=== PATIENT | female | born 1950 | race Hispanic/Latino ===

== ENCOUNTER → 2018-03-20 | Outpatient (CLI) | payer MEDICARE | END | disposition home or self-care (01) | LOC: RAH 07:54 | PROVIDERS: ATTEND Family Medicine | DX: Z12.31 Encounter for screening mammogram for malignant neoplasm of breast (principal) | CPT/HCPCS: 77067 ==

== ENCOUNTER → 2020-04-12 | Outpatient (CLI) | payer MEDICARE | END | disposition home or self-care (01) | LOC: RAH 14:24 | PROVIDERS: ATTEND Family Medicine | DX: Z12.31 Encounter for screening mammogram for malignant neoplasm of breast (principal) ==

== ENCOUNTER → 2021-06-03 | Outpatient (CLI) | payer MEDICARE | END | disposition home or self-care (01) | LOC: RAH 13:23 | PROVIDERS: ATTEND Family Medicine | DX: Z12.31 Encounter for screening mammogram for malignant neoplasm of breast (principal) | CPT/HCPCS: 77067 ==

== ENCOUNTER 2022-02-24 17:23 | Emergency (ER) | payer OTHER ==
[~2022-02-24] VITALS: Ht 154.9 cm; Wt 54.4 kg
[2022-02-24 17:24] VITALS: BP 146/50
== END 2022-02-24 18:55 | disposition home or self-care (01) ==
LOC: EDH 17:23
DX: I83.892 Varicose veins of left lower extremity with other complications (principal); I10 Essential (primary) hypertension; Z88.0 Allergy status to penicillin; Z88.2 Allergy status to sulfonamides

== ENCOUNTER → 2022-06-07 | Outpatient (CLI) | payer OTHER | END | disposition home or self-care (01) | LOC: SHCH 08:06 | PROVIDERS: ATTEND Internal Medicine Cardiovascular Disease | DX: I87.2 Venous insufficiency (chronic) (peripheral) (principal) | CPT/HCPCS: 93970 ==

== ENCOUNTER 2025-10-05 01:07 | Inpatient (IN) | payer OTHER ==
[~2025-10-05] VITALS: Ht 152.4 cm; Wt 36.0 kg
--- NOTE | 2025-10-05 01:21 | EKG ---
[facility] Test Date: 2025-10-05 Test Time: 01:12:47 Pat Name: BRANNON LINDA Department: ED Room: 402 Gender: F Trace Evidence Technician: [id number] : 1950 Requested By: GABRIEL JARRETT Order Number: [id number] Reading MD: Torito Singh Measurements Intervals Justice Rate: 60 P: 90 SC: 152 QRS: 81 QRSD: 85 T: 79 QT: 456 QTc: 456 Interpretive Statements Sinus rhythm Compared to ECG 03/15/2025 11:24:13 Indeterminate axis no longer present Myocardial infarct finding no longer present Electronically Signed On 10-05-2025 12:13:55 SHOT POLISHER by Torito Singh Please click the below link to view image of tracing.
--- NOTE | 2025-10-05 01:22 | ERN ---
ED Note History of Present Illness Stated Complaint: CHEST PAIN Chief Complaint: Chest Pain Time Seen by MD: 01:11 Dictation: This is a 75-year-old female who has a advanced dementia and is bed-bound at baseline brought by who is the primary caregiver to the hospital for evaluation of possible chest pain. Patient is basically mumbling disoriented trying to get out of bed and pull things off and I am unable to confirm the chest pain with her. Does indicate that she has been more confused and pretty much in bed. He stated that she does not tell him when she has to use the restroom. He appeared overwhelmed as a caregiver Temperature 96.6 pulse 60 respirations 16 blood pressure 135/83 with a pulse oximetry of 100% on room air Hypertension advanced dementia Allergies: Coded Allergies: Penicillins (Verified Allergy, 11/20/13) Sulfa (Sulfonamide Antibiotics) (Verified Allergy, 11/20/13) Home Meds No Active Prescriptions or Reported Meds Past Medical History Past Medical History: Dementia, Hypertension Surgical History: Unknown Family History: CAD Social History: Negative History: Not Applicable RN Note Reviewed/Agreed w/PFSH: Yes Review of System Dictation Review of systems is unobtainable as patient is extremely confused and disoriented. Collateral information from -he thinks she may have epigastric or chest pain. For the past 2 years patient has been deteriorating and is bed-bound with total care Initial Vital Sign VS Vital Signs Date Time Temp Pulse Resp B/P (MAP) Pulse Ox O2 Delivery O2 Flow Rate FiO2 10/05/25 01:08 96.6 60 16 135/83 100 Room Air 10/05/25 01:43 0 21 Physical Exam Dictation General: awake, alert, NAD looks much older than her stated age, severe temporal wasting, cachexia emaciated mumbling Head/Face: Normocephalic, atraumatic Eyes: PERRL, EOMI, vision at baseline ENT: oral cavity clear, TMs clear, no signs of infection mucous membranes are dry poor dentition Neck: Trachea midline, supple, no nuchal rigidity Cardiovascular: RRR, normal S1/S2, No MRGs, no JVD Respiratory: CTAB, no respiratory distress, No rales or wheezes Abdomen: Soft, non-tender, non-distended, normal bowel sounds, no guarding or rebound. Skin: Warm, dry, poor skin l turgor, no rash MS/Extremity: Pulses equal, no cyanosis, neurovascular intact, FROM Neuro: confused disoriented unable to get any appropriate responses from the patient Psych: Normal behavior, mood, and affect normal Extremities-no edema without any palpable cords, Homans sign is negative Results (Laboratory/Radiology) Laboratory/Radiology Laboratory Tests Test 10/05/25 01:39 White Blood Count 13.6 K/uL (4.8-10.8) H Red Blood Count 4.04 MIL/uL (4.00-5.50) Hemoglobin 12.4 g/dL (12.0-16.0) Hematocrit 38.2 % (36-48) Mean Corpuscular Volume 94.6 fL (79-99) Mean Corpuscular Hemoglobin 30.7 pg (27.0-33.0) Mean Corpuscular Hemoglobin Concent 32.5 g/dL (32.0-36.0) Red Cell Distribution Width 13.5 % (11.0-15.5) Platelet Count 363 K/uL (130-400) Mean Platelet Volume 8.9 fL (7.5-10.5) Immature Granulocyte % (Auto) 0.4 % (0-1) Neutrophils (%) (Auto) 81.7 % (40.0-77.0) H Lymphocytes (%) (Auto) 11.2 % (21.0-51.0) L Monocytes (%) (Auto) 5.3 % (3.0-13.0) Eosinophils (%) (Auto) 1.0 % (0.0-8.0) Basophils (%) (Auto) 0.4 % (0.0-5.0) Neutrophils # (Auto) 11.1 K/uL (1.8-7.7) H Lymphocytes # (Auto) 1.5 K/uL (1.0-4.8) Monocytes # (Auto) 0.7 K/uL (0.1-1.0) Eosinophils # (Auto) 0.13 K/uL (0.00-0.70) Basophils # (Auto) 0.06 K/uL (0.00-0.20) Absolute Immature Granulocyte (auto 0.05 K/uL (0-1) Nucleated Red Blood Cells 0.0 % (0.0-0.19) Sodium Level 137 mmol/L (136-145) Potassium Level 3.1 mmol/L (3.5-5.1) L Chloride Level 100 mmol/L (101-111) L Carbon Dioxide Level 27 mmol/L (21-32) Blood Urea Nitrogen 12 mg/dL (7-18) Creatinine 1.0 mg/dL (0.5-1.0) Glomerular Filtration Rate Calc 58 mL/min (>90) Random Glucose 159 mg/dL (70-105) H Total Calcium 8.7 mg/dL (8.5-10.1) Total Creatine Kinase 59 U/L (21-232) Troponin I High Sensitivity 8 ng/L (4-50) Labs Reviewed?: Yes EKG Comment: Twelve lead EKG done on 10/05/2025 at 1:12 a.m. shows a heart rate of 60, MA interval 152, QRS 85, QT/QTC 456/456 Impression normal sinus rhythm with nonspecific ST-T changes EKG rhythm strip also shows a normal sinus rhythm with a monitoring baseline due to patient's lack of cooperation. Interpreted by ER MD Dr. Jarrett X-RAY Comment: REASON: CHEST PAIN ORDERING PHYSICIAN: GABRIEL JARRETT MD PROCEDURE: CXR1VW - CHEST 1VW EXAM: CR Chest, 1 View. CLINICAL HISTORY: CHEST PAIN COMPARISON: None provided. FINDINGS: LUNGS: There is no mass, infiltrate, or acute pulmonary abnormality. PLEURAL SPACES: No evidence of pleural effusion or pneumothorax. MEDIASTINUM: Cardiac size and mediastinal contours are within normal limits. Calcified plaque in the aortic arch. BONES: No aggressive appearing osseous lesion seen. IMPRESSION: No acute cardiopulmonary pathology is evident. /[place] DICTATED BY: MARIA ANTONIA SARGENT Jr., MD DATE: 10/05/25329 ELECTRONICALLY SIGNED BY: MARIA ANTONIA SARGENT Jr., MD DATE: 10/05/25329 ED Course ED Course Orders Procedure Category Date Status Time Vital Signs Per CPOE 10/05/25 Transmitted Routine 01:08 Chest 1vw RAD 10/05/25 Resulted 01:08 12 Lead Ekg Tracing- EKG 10/05/25 Complete Technical 01:08 Oxygen By Nc/Pulse Ox CPOE 10/05/25 Transmitted 01:08 Maintain Iv CPOE 10/05/25 Transmitted 01:08 Iv Insertion CPOE 10/05/25 Transmitted 01:08 Cardiac Monitoring CPOE 10/05/25 Transmitted 01:08 Pulse Oximetry With CPOE 10/05/25 Transmitted Vs And Prn 01:08 Cbc With Differential LAB 10/05/25 Complete 01:08 Activity: Br W/Brp CPOE 10/05/25 Transmitted With Assist 01:08 Creatine Kinase, Total LAB 10/05/25 Complete 01:08 Troponin I High LAB 10/05/25 Complete Sensitivity 01:08 Basic Metabolic Panel LAB 10/05/25 Complete 01:08 Urinalysis Profile LAB 10/05/25 Logged 02:07 Haloperidol Inj PHA 10/05/25 Complete (Haldol Inj) 03:00 Ns-20 Meq Kcl 1000ml PHA 10/05/25 Complete (Ns-20 Meq Kcl 1000 03:00 Lorazepam 2 Mg PHA 10/05/25 Complete (Ativan) 03:00 Ns-20 Meq Kcl 1000ml PHA 10/05/25 In Process (Ns-20 Meq Kcl 1000 04:00 Ceftriaxone 1g Vial PHA 10/05/25 Complete (Rocephine 1g Inj) 05:00 Edm Admit Bridge Order ADM 10/05/25 Transmitted 04:55 Current Medications Medications (Trade) Dose Ordered Sig/Juliane Route PRN Reason Start Time Stop Time Status Last Admin Dose Admin Ceftriaxone Sodium (ROCEphine 1G INJ) 1 gm ONCE ONCE IVPB 10/05/25 05:00 10/05/25 05:01 DC 10/05/25 04:58 Haloperidol Lactate (Haldol Inj) 2 mg ONCE ONCE IM 10/05/25 03:00 10/05/25 03:08 DC 10/05/25 03:33 Lorazepam (AtiVAN) 1 mg ONCE ONCE IVP 10/05/25 03:00 10/05/25 03:08 DC 10/05/25 03:33 Potassium Chloride/Sodium Chloride 1,000 ml @ 100 mls/hr Q10H IV 10/05/25 03:00 10/05/25 03:35 DC Potassium Chloride/Sodium Chloride 1,000 ml @ 500 mls/hr Q2H ONCE IV 10/05/25 04:00 10/05/25 05:59 10/05/25 05:01 Vital Signs Date Time Temp Pulse Resp B/P (MAP) Pulse Ox O2 Delivery O2 Flow Rate FiO2 10/05/25 04:55 98.4 60 20 133/62 99 Room Air* 0 21 10/05/25 03:30 98.4 62 18 128/74 98 Room Air* 0 21 10/05/25 01:43 98.4 56 18 150/54 98 Room Air* 0 21 10/05/25 01:08 96.6 60 16 135/83 100 Room Air Medical Decision Making MDM Differential diagnosis: Worsening delirium could be secondary to dehydration, UTI, electrolyte abnormalities and adult failure to thrive This is a 75-year-old female who has a advanced dementia and is bed-bound at baseline brought by who is the primary caregiver to the hospital for evaluation of possible chest pain. Patient is basically mumbling disoriented tr sunny to get out of bed and pull things off and I am unable to confirm the chest pain with her. Does indicate that she has been more confused and pretty much in bed. He stated that she does not tell him when she has to use the restroom. He appeared overwhelmed as a caregiver Temperature 96.6 pulse 60 respirations 16 blood pressure 135/83 with a pulse oximetry of 100% on room air Hypertension advanced dementia Labs reviewed potassium is 3.1 WBC count is 13.6. Straight cath did not yield much urine Aggressive hydration with potassium supplementation. I assume that her worsening delirium is multifactorial probably related to a U TI, dehydration as well as poor p.o. intake. Her sleep-wake cycle also needs to be established. I recommended admission to the hospital and also to address goals of care and aggressiveness. Patient's is agreeable 4:30 a.m. patient [facility]-level provider for hospitalist group for admission and further management Rationale: Tests considered and ordered secondary to shared decision making include: labs, ECG and radiology Previous outside records reviewed: Old ER visits. Risk of complication and/or morbidity or mortality of patient management: None Medications-Per medication reconciliation Need for hospitalization: Patient does meet criteria for hospitalization. Need for emergency major/minor surgery: No There are no social concerns with this patient. Prescription drug management Prescriptions will include symptomatic care Patient's prior external medical records from other ER visits were reviewed by me as indicated. Prior testing and results from previous visits were reviewed. Prior tests were taken into account with medical decision making and resource utilization, independent historian/historians were used to obtain complete medical history. I independently interpreted the test that were performed, results were reviewed by me and considered findings on radiology if ordered. Medical management and examination interpretation discussions were had by me with other qualified healthcare professionals as indicated for the patient's care. Problem List Problem List: (1) Delirium due to multiple etiologies, acute, hyperactive (2) UTI (urinary tract infection) (3) Hypokalemia (4) Advanced dementia (5) Sacral decubitus ulcer, stage II (6) Adult failure to thrive DX & DISP Disposition: Inpatient Decision to Admit Time: 04:42 Departure Impression: Primary Impression: Delirium due to multiple etiologies, acute, hyperactive Additional Impressions: UTI (urinary tract infection), Sacral decubitus ulcer, stage II, Advanced dementia, Hypokalemia, Adult failure to thrive Condition: Stable Scripts No Active Prescriptions or Reported Meds Additional Instructions: Patient was informed of all the diagnostic labs and procedures conducted in the emergency room today and demonstrated understanding of the results. I personally reviewed and interpreted all the diagnostic exams performed in the ER today. The patient will be admitted to the hospital for further treatment and evaluation. Disposition-admit to facility Condition-stable/guarded Course-uncertain at this time Pain status-decreased Assessment-exam unchanged Admission Certification- I certify that the patients status is appropriate and is based on my best clinical judgment and the patient's condition as documented in the medical records Referrals: AUGIE GONSALES MD (PCP) GABRIEL JARRETT MD Oct 05, 2025 01:22
[2025-10-05 01:46] LABS: IMMATURE GRANULOCYTE ABSOLUTE 0.05 K/uL (0-1); NUCLEATED RED BLOOD CELLS 0.0 % (0.0-0.19); PLATELET COUNT (AUTO) 363 K/uL (130-400); RED BLOOD CELL COUNT(AUTO) 4.04 MIL/uL (4.00-5.50); RED CELL DISTRIBUTION WIDTH 13.5 % (11.0-15.5); WHITE BLOOD COUNT (AUTO) 13.6 K/uL (4.8-10.8)
[2025-10-05 01:58] LABS: CREATININE 1.0 mg/dL (0.5-1.0); GLOMERULAR FILTR. RATE CALC 58.0 mL/min (>90); GLUCOSE,RANDOM 159.0 mg/dL (70-105); SODIUM SERUM 137.0 mmol/L (136-145); UREA NITROGEN, BLOOD 12.0 mg/dL (7-18)
[2025-10-05 02:00] LABS: CREATINE KINASE, TOTAL 59.0 U/L (21-232)
--- NOTE | 2025-10-05 02:31 | HMCIMG ---
EXAM: CR Chest, 1 View. CLINICAL HISTORY: CHEST PAIN COMPARISON: None provided. FINDINGS: LUNGS: There is no mass, infiltrate, or acute pulmonary abnormality. PLEURAL SPACES: No evidence of pleural effusion or pneumothorax. MEDIASTINUM: Cardiac size and mediastinal contours are within normal limits. Calcified plaque in the aortic arch. BONES: No aggressive appearing osseous lesion seen. IMPRESSION: No acute cardiopulmonary pathology is evident. /[place]
[2025-10-05] MEDS ORDERED: NS-20 MEQ KCL 1000ML 1,000 ML IV SCH (03:00)
[2025-10-05] MEDS: HALOPERIDOL INJ 5 MG/ML VIAL IM ONE (03:33)
[2025-10-05] MEDS: NS-20 MEQ KCL 1000ML 1,000 ML IV ONE (05:01)
[2025-10-05] MEDS ORDERED: MAGNESIUM 2GM PREMIX 50ML 50 ML IV PRN (05:30)
[2025-10-05] MEDS: LACTATED RINGERS 1000ML 1,000 ML IV SCH (05:30)
[2025-10-05 05:41] LABS: APPEARANCE,URINE CLOUDY (CLEAR); GLUCOSE, URINE (UA) 30 mg/dL (NEGATIVE); LEUKOCYTE ESTERASE ,URINE 500 Leu/uL (NEGATIVE); NITRATE,URINE 1+ (NEGATIVE); OCCULT BLOOD,URINE SMALL (NEGATIVE)
[2025-10-05 05:43] LABS: ADD UA MICROSCOPIC YES
[2025-10-05 05:58] VITALS: BP 131/69; PULSE 62; RESP 22; TEMP 96.9
[2025-10-05 06:06] LABS: SQUAMOUS EPITHELIAL CELL,UR 0-2 /HPF (0-2)
[2025-10-05 08:00] VITALS: BP 124/67; PULSE 63; RESP 18; TEMP 98.1
[2025-10-05 08:30] VITALS: O2SAT 96
--- NOTE | 2025-10-05 09:32 | NUR ---
DCP:HOME vs SNF Pt currently lives at home with her and son. Pt has a wheelchair at home. As per , he has to help the pt complete all ADLs. PCP is Dr. Ariel Espinosa and uses [facility] for any RX needs. At [place] states that he would be open to a SNF, if not home.
--- NOTE | 2025-10-05 10:00 | NUR ---
No H&P or medical information in EMR. PT team to follow.
--- NOTE | 2025-10-05 11:01 | HP ---
[facility] PH[facility] Date of Service: Oct 05, 2025 Time of Service: 10:46 PCP: Dr. Santos from [facility] [place] Admitting: Dr Baez, Allergies: Penicillins, sulfa HISTORY OF PRESENT ILLNESS: [ Patient is 75 years old female with a past medical history of dementia, hypertension, hyperlipidemia, Coronary Artery Disease, who came to emergency department with a complaint of stomach pain and vomiting. Due to advanced dementia family members/ at the bedside was able to give detailed information. stated that since yesterday in the evening patient has been having stomach pain and was vomiting x2. Since she never complains of pain he decided to call 911 and bring her to the hospital for further evaluation/recommendations. Most recent vital signs temperature 98.1 pulse 63 respiration 18 blood pressure 124/67 patient is on room air satting 96%. WBc 13.6 hemoglobin 12.4 hematocrit 38.2 platelets 363] Urinalysis positive for leukocytosis patient was placed on Rocephin. Sodium 137 potassium 3.1 CO2 27 BUN 12 creatinine one GFR 58 glucose 159 C chest x-ray negative. Patient will be admitted under hospitalist care for further evaluation/recommendation. A.m. labs. REVIEW OF SYSTEMS CONSTITUTIONAL: Denies fevers, chills, or night sweats. No unintentional weight loss reported. NEUROLOGICAL: Denies headache, amaurosis fugax, motor weakness, sensory deficit, vertigo/spinning sensation, gait abnormalities, or tremors. ENT: No hearing loss, otalgia, otorrhea, rhinitis, rhinorrhea, hoarseness, or sore throat. CARDIOVASCULAR: Denies any exertional angina, dyspnea on exertion, orthopnea, paroxysmal nocturnal dyspnea, palpitations, life-threatening arrhythmias, claudication. PULMONARY: Denies any shortness of breath, cough, phlegm/sputum, hemoptysis, pleuritic chest pain. SLEEP: Denies morning headaches, daytime somnolence or napping. Denies difficulty falling asleep, staying asleep, waking from sleep. Denies knowledge of snoring. GASTROINTESTINAL: Denies any type of dysphagia to either liquids or solids. Denies , vomiting, pyrosis, early satiety, diarrhea, constipation, or changes in stool consistency or caliber. Denies coffee-ground emesis, hematemesis, hematochezia, or melanotic stools. Abdominal pain with the nausea but no vomiting GENITOURINARY: Denies frequency, urgency, nocturia, hematuria or incontinence (Storage/Irritative symptoms.) Low urinary stream, straining to void, urinary intermittency or hesitancy, splitting of the voiding stream, terminal dribbling. ENDOCRINOLOGIC: Denies polyuria, polydipsia, polyphagia or heat/cold intolerances. HEMATOLOGIC: Denies thrombophilia/previous clots, or coagulopathy/bleeding disorders. ONCOLOGIC: Denies personal history of malignancy. DERMATOLOGIC: Denies rashes or pruritus. PSYCHIATRIC: Denies any suicidal or homicidal ideation. Denies hallucinations. PAST MEDICAL HISTORY: [ Showed, hypertension, hyperlipidemia, Coronary Artery Disease] PAST SURGICAL HISTORY: [ None] PAST SOCIAL HISTORY: Denies any past social history] FAMILY HISTORY: [Patient lives at home with . Patient has advanced dementia bed-bound ] Coded Allergies: Penicillins (Verified Allergy, 11/20/13) Sulfa (Sulfonamide Antibiotics) (Verified Allergy, 11/20/13) PHYSICAL EXAM GENERAL APPEARANCE: The patient is disoriented x3 NEUROLOGICAL: Cranial nerves II-XII grossly intact. Motor is 5/5 in bilateral upper and lower extremities proximal to distal. No sensory deficits. HEENT: Face is symmetric. Pupils are equal and reactive. Extraocular movements are intact. NECK: Supple. No JVD. No thyromegaly. No submental, submandibular, pre- /postauricular, occipital or supraclavicular lymphadenopathy. CHEST: Normal chest expansion. No Telemetry. LUNGS: Absence of any rales, rhonchi or any wheezing. CARDIOVASCULAR: Regular. S1 and S2 normal. No appreciable rubs, murmurs or gallops. ABDOMEN: Soft, nontender, and nondistended. There is no rebound, voluntary guarding, or rigidity. : Deferred. No Bernal. EXTREMITIES: Non-edematous and not cyanotic. No clubbing. Good capillary refill. SKIN: Stage II sacral ulcer Vital Sign (Last 24 Hours) 10/05/25 10/05/25 06:15 08:00 Temp 98.1 Pulse 63 Resp 18 B/P (MAP) 124/67 Pulse Ox 96 O2 Delivery Room Air O2 Flow Rate 0 FiO2 21 LABS: Laboratory: Test 10/05/25 05:18 10/05/25 01:39 Range/Units Urine Color LIGHT-YELLOW YELLOW Urine Appearance CLOUDY H CLEAR Urine pH 8.0 5.0-8.0 Urine Specific [place] 1.011 1.001-1.031 Urine Protein NEGATIVE NEGATIVE mg/dL Urine Glucose (UA) 30 H NEGATIVE mg/dL Urine Ketones NEGATIVE NEGATIVE mg/dL Urine Occult Blood SMALL H NEGATIVE Urine Nitrate 1+ H NEGATIVE Urine Bilirubin NEGATIVE NEGATIVE mg/dL Urine Urobilinogen 0.2 0.2-1.0 mg/dL Urine Leukocyte Esterase 500 H NEGATIVE Megan/uL Urine RBC 0-1 0-1 /HPF Urine WBC 6-10 H 0-1 /HPF Urine Squamous Epithelial Cells 0-2 0-2 /HPF Urine Amorphous Crystals (Auto) Moderate H None Seen /LPF Urine Bacteria Many H None Seen /HPF White Blood Count 13.6 H 4.8-10.8 K/uL Red Blood Count 4.04 4.00-5.50 MIL/uL Hemoglobin 12.4 12.0-16.0 g/dL Hematocrit 38.2 36-48 % Mean Corpuscular Volume 94.6 79-99 fL Mean Corpuscular Hemoglobin 30.7 27.0-33.0 pg Mean Corpuscular Hemoglobin Concent 32.5 32.0-36.0 g/dL Red Cell Distribution Width 13.5 11.0-15.5 % Platelet Count 363 130-400 K/uL Mean Platelet Volume 8.9 7.5-10.5 fL Immature Granulocyte % (Auto) 0.4 0-1 % Neutrophils (%) (Auto) 81.7 H 40.0-77.0 % Lymphocytes (%) (Auto) 11.2 L 21.0-51.0 % Monocytes (%) (Auto) 5.3 3.0-13.0 % Eosinophils (%) (Auto) 1.0 0.0-8.0 % Basophils (%) (Auto) 0.4 0.0-5.0 % Neutrophils # (Auto) 11.1 H 1.8-7.7 K/uL Lymphocytes # (Auto) 1.5 1.0-4.8 K/uL Monocytes # (Auto) 0.7 0.1-1.0 K/uL Eosinophils # (Auto) 0.13 0.00-0.70 K/uL Basophils # (Auto) 0.06 0.00-0.20 K/uL Absolute Immature Granulocyte (auto 0.05 0-1 K/uL Nucleated Red Blood Cells 0.0 0.0-0.19 % Sodium Level 137 136-145 mmol/L Potassium Level 3.1 L 3.5-5.1 mmol/L Chloride Level 100 L 101-111 mmol/L Carbon Dioxide Level 27 21-32 mmol/L Blood Urea Nitrogen 12 7-18 mg/dL Creatinine 1.0 0.5-1.0 mg/dL Glomerular Filtration Rate Calc 58 >90 mL/min Random Glucose 159 H 70-105 mg/dL Total Calcium 8.7 8.5-10.1 mg/dL Total Creatine Kinase 59 21-232 U/L Troponin I High Sensitivity 8 4-50 ng/L Current Medications Medications (Trade) Dose Ordered Sig/Juliane Route PRN Reason Start Time Stop Time Status Last Admin Dose Admin Ceftriaxone Sodium (ROCEphine 1G INJ) 1 gm BID IV 10/05/25 21:00 10/15/25 20:59 Lactated Ringer's 1,000 ml @ 75 mls/hr [id number] IV 10/05/25 05:30 11/04/25 05:29 Magnesium Sulfate 50 ml @ 0 mls/hr PROTOCOL PRN IV OTHER [SEE ORDER COMMENTS] 10/05/25 05:30 11/04/25 05:29 Potassium Chloride/Sodium Chloride 1,000 ml @ 100 mls/hr Q10H IV 10/05/25 03:00 10/05/25 03:35 DC Potassium Chloride 100 ml @ 50 mls/hr AD PRN IV POTASSIUM PROTOCOL 10/05/25 05:30 11/04/25 05:29 DIAGNOSTICS / RADIOLOGY: [ ] ASSESSMENT: [ Failure to try POA Acute complicated cystitis POA Advanced dementia POA Incontinence of bladder and bowel POA Uncontrolled hypertension POA Hyperlipidemia POA Coronary Artery Disease POA Light imbalance hypokalemia 3.1 POA Uncontrolled diabetes mellitus type 2 with hypoglycemia POA Leukocytosis WBC 13.7 POA] PLAN: [ CT abdomen/pelvis without contrast pending Hyper and hypoglycemia protocol Initiate hypokalemia protocol Rocephin for UTI PRN medication LR at 75 mL/hour A.m. labs Urine culture pending Dietary consultation for malnutrition NPO PT evaluation Wound consultation for stage II sacral ulcer pending Case management for disposition Home medication reconciled by FURNISHINGS CONSERVATOR 10/05/2025] ADVANCED CARE PLANNING 1. Which of the following were discussed? Hospice Care - Yes / No Therapeutic options - Yes / No Advance Directives - Yes / No Other discussions - 2. Discussed with who? Patient has a advanced dementia. Case discussed with the at the bedside 3. Voluntary nature of this service was explained to the patient? Yes / No 4. Amount of time spent - ___ more than 35 minutes ____ 5. Reviewed by Physician? (if this service was performed by NPP) Yes / No ATTESTATION BY PHYSICIAN I have seen and examined the patient. I reviewed the documentation, medical decision making, and treatment plan as noted by the mid-level provider above. I agree with the findings and plan of care. LENNY BAEZ MD, [facility] Oct 05, 2025 11:01
--- NOTE | 2025-10-05 11:59 | NUR ---
PHYSICIAN ROUNDING DR. ESPINOZA D/C LR FLUIDS AND START BANANA BAG 50ML/HR
[2025-10-05 12:00] VITALS: BP 127/60; PULSE 82; RESP 17; TEMP 98
[2025-10-05] MEDS ORDERED: COMPOUND IV MISC 1 EACH IVSOLN MISC PRN (12:30)
[2025-10-05] MEDS ORDERED: COMPOUND IV REFRIGERATED 1 EACH IVSOLN MISC PRN (12:30)
--- NOTE | 2025-10-05 14:45 | NUR ---
[facility] Consult: Patient assessed by wound healing team. Patient with no wounds, resolving maceration to buttocks. Assessment and recommendations provided to primary nurse. Education provided.
[2025-10-05] MEDS: M.V.I. IV [ADULT] 10 ML, FOLic ACID 5 MG/ML VIAL 1 MG, THIAMINE HCL 100 MG in 0.9%NACL ... IV SCH (15:09)
[2025-10-05 16:00] VITALS: BP 139/51; PULSE 58; RESP 18; TEMP 98.8
--- NOTE | 2025-10-05 16:42 | NUR ---
BEDSIDE SWALLOW EVALUATION: s/s of aspiration RECOMMENDATIONS: NPO recommendation and alternate means of nutrition/hydration. BED AND BREAKFAST INNKEEPER reviewed results and recommendations with spouse and nurse Gauri. BED AND BREAKFAST INNKEEPER educated spouse and nurse on risks and consequences of aspiration. Speech therapy is not warranted at this time. MD to reconsult if there is a change in medical status for re-evaluation. All questions answered. Addendum: 10/05/[address] [facility] Amended: Links added.
[2025-10-05 20:00] VITALS: BP 139/71; PULSE 56; RESP 17; TEMP 97.4
[2025-10-05] MEDS: BALSAM PERU/CASTOR OIL 60 GM TUBE TP SCH (21:45)
[2025-10-06] VITALS (7 sets, daily range): BP systolic 123–144; BP diastolic 42–79; PULSE 65–71; RESP 17–20; TEMP 97.4–99.1; O2SAT 99
[2025-10-06 04:09] LABS: IMMATURE GRANULOCYTE ABSOLUTE 0.16 K/uL (0-1); NUCLEATED RED BLOOD CELLS 0.0 % (0.0-0.19); PLATELET COUNT (AUTO) 346 K/uL (130-400); RED BLOOD CELL COUNT(AUTO) 3.92 MIL/uL (4.00-5.50); RED CELL DISTRIBUTION WIDTH 13.8 % (11.0-15.5); WHITE BLOOD COUNT (AUTO) 19.9 K/uL (4.8-10.8)
[2025-10-06 04:40] LABS: ASPARTATE AMINOTRANSFERASE 16.0 U/L (10-37); CREATININE 0.7 mg/dL (0.5-1.0); GLOMERULAR FILTR. RATE CALC 90.0 mL/min (>90); GLUCOSE,RANDOM 113.0 mg/dL (70-105); SODIUM SERUM 139.0 mmol/L (136-145); TOTAL PROTEIN, SERUM 7.2 g/dL (6.0-8.3); UREA NITROGEN, BLOOD 8.0 mg/dL (7-18)
[2025-10-06 04:47] LABS: WBC MORPHOLOGY CONSISTENT W/DIFF
[2025-10-06 04:48] LABS: PLATELET MORPHOLOGY LARGE PLTS PRESENT
--- NOTE | 2025-10-06 09:34 | HMCIMG ---
EXAM: CT Abdomen and Pelvis Without IV contrast CLINICAL HISTORY: abd pain TECHNIQUE: Axial computed tomography images of the abdomen and pelvis without intravenous contrast. CONTRAST: No IV contrast. COMPARISON: None provided. FINDINGS: LUNG BASES: Left minimal pleural effusion. Dependent atelectatic changes in the bilateral lower lobes. LIVER: A well-defined hypodense area in the right lobe of the liver measuring 11 x 6.5 mm (series 2; image 15). This may reflect a simple cyst; however, it would be better characterized with ultrasound on a non-emergent basis GALLBLADDER AND BILE DUCTS: Multiple radiolucent gallstones, the largest measuring 12 x 8.1 mm. The gallbladder is severely distended, measuring approximately 11 cm. Mild pericholecystic fat stranding. No abnormal gallbladder wall thickening. No biliary ductal dilatation is evident. PANCREAS: Unremarkable. SPLEEN: Unremarkable. ADRENAL GLANDS: Unremarkable. KIDNEYS, URETERS, AND BLADDER: The kidneys appear within normal limits. There is no hydronephrosis or hydroureter. No urinary calculi are seen. STOMACH AND BOWEL: Colonic diverticulosis with no features of acute diverticulitis. Unremarkable appearance of the stomach and rest of the bowel. No evidence of bowel obstruction. No evidence suggesting enteritis or colitis. APPENDIX: No evidence of acute appendicitis on CT examination. PERITONEUM: No free fluid. No free air. LYMPH NODES: No lymphadenopathy is evident. REPRODUCTIVE: Unremarkable as visualized. VASCULATURE: No evidence of abdominal aortic aneurysm. Mild atherocalcific changes in the abdominal aorta. BONES: No aggressive appearing osseous lesion. No acute osseous pathology is evident. IMPRESSION: Acute cholecystitis with gallstones and a severely distended gallbladder. US correlation is suggested. No urinary calculi. No hydronephrosis. No bowel obstruction or inflammation. Small left pleural effusion. /[place]
--- NOTE | 2025-10-06 14:26 | NUR ---
SW followed up on hospice order however no family was present at bedside. Made contact with and he stated that he was at home resting and would be back to hospital to discuss around 3:15pm. SW to follow up
--- NOTE | 2025-10-06 15:41 | NUR ---
PLAN OF CARE IN FLUX- CONSERVATIVE TX/ HOSPICE OR PURSUE ALL TREATMENT/ PEG/ETC? SPOKE TO SPOUSE AT BEDSIDE X 2 TODAY- @FIRST MEETING SPOUSE STATES THAT PATIENT HAS HAD DX OF DEMENTIA FOR ABOUT TWO YEARS NOW, ADVISED SPOUSE THAT IT IS ALMOST UNIVERSAL THAT IN END STAGE DEMENTIA, PEOPLE FORGET HOW TO EAT. IT IS A HARD DECISION TO MAKE TO PLACE A FEEDING TUBE OR NOT PLACE A FEEDING TUBE. PATIENT APPEARS TO BE LISTENING TO CONVERSATION. WHEN ASKED IF SHE WOULD LIKE A FEEDING TUBE IN HER BELLY, PATIENT SHAKES HER HEAD NO. SPOUSE STATES HE IS UNSURE IF SHE UNDERSTANDS STATES THAT HE FEELS HIS NEEDS HOSPICE BUT HER SISTER WANTS ALL AGGRESSIVE MEASURES. SISTER IS NOT THE CAREGIVER OF THE PATIENT . SPOUSE IS CAREGIVER. SPOUSE APPEARS INDECISIVE AND UPSET BY THE DECISIONS FACING HIM PATIENT IS VERY MALNOURISHED SECOND TIME THIS CM TALKED TO PATIENT AT BEDSIDE STATES HE WAS CONFUSED BECAUSE HE IS BEING OFFERED A PEG, BUT ALSO MD ARE SAYING SHE MAY PULL IT OUT.ASKED ABOUT PT GOING TO [facility] EXPLAINED HOSPICE IS A SERVICE, STATES THAT PATIENT CAN HAVE HOSPICE SERVICES IN OWN HOME, IN [facility] OR IN HOSPICE HOUSE. [facility] PICK LOCALE FOR HOSPICE SERVICES IF HE DECIDED TO GO WITH HOSPICE. SPOKE TO DR. HERRERA AND DR. JOSE TOVAR GEN SURGERYCONSULT, POSSIBLE NEED FOR CHOLECYSTOTOMY TUBE. WILL FOLLOW UP ON HOSPICE AFTER SW SPEAKS TO PATIENT
--- NOTE | 2025-10-06 16:09 | NUR ---
SW followed up on hospice referral and after a long conversation and going back and forth with sps and sister decided not to move forward with hospice and will look into potentially getting a peg tube
--- NOTE | 2025-10-06 16:39 | CONS ---
CONSULT NOTE: Consulting physician: Dr. Baez Consulting service: General surgery Reason for consultation: Cholecystitis History of present illness: This is a 75-year-old female with a medical history below consulted to surgery a fter presenting to ED with concerns of abdominal pain associated with vomiting. Patient with significant history of dementia and has been at bedside giving history. Patient is unable to respond to questions but on physical exam reporting upper quadrant pain. Initial imaging performed concerning for cholecystitis however patient is very weak appearing and cachectic. Patient currently on IV fluids and IV antibiotics. WBCs elevated to 19. Patient currently NPO on IV fluids and IV antibiotics Medical history: dementia, hypertension, hyperlipidemia, Coronary Artery Disease Review of systems: General: No Fever, No Chills, No Night Sweats, No Fatigue, No Malaise, No Appetite, No Other HEENT: No Head Aches, No Visual Changes, No Eye Pain, No Ear Pain, No D ysphasia, No Sinus Congestion, No Post Nasal Drip, No Sore Throat, No Other Pulmonary: No Dyspnea, No Cough, No Pleuritic Chest Pain, No Other Cardiovascular: No: Chest Pain, Palpitations, Orthopnea, Paroxysmal No Dyspnea, Edema, Lt Headedness, Other Gastrointestinal: No: Nausea, Vomiting, Diarrhea, Constipation, Melena, Hematochezia, Other Genitourinary: No Dysuria, No Frequency, No Incontinence, No Hematuria, No Retention, No Other Musculoskeletal: No: other, neck pain, shoulder pain, arm pain, back pain, hand pain, leg pain, foot pain Skin: No Urticaria, No Rash, No Other Neurological: No: Weakness, Numbness, Incoordination, Change in speech, Confusion, Seizures, Other Physical exam: General: Disoriented weekend cachectic Heart: [Regular rate and rhythm} Lungs: [Clear to auscultation no distress Abdomen: Right upper quadrant pain Assessment: This is a 75-year-old female with concerns of acute cholecystitis Plan: At this point in time we will order HIDA scan and ultrasound to better assess gallbladder We will also request cardiac clearance Patient may be a poor candidate for surgical intervention if surgery to high- risk patient will likely need cholecystostomy tube Continue with the IV fluids and IV antibiotics Repeat CBC and CMP Surgical case has been discussed with my supervising physician in the above plan was formulated and agreed upon Supervising physicians evaluation the patient be done within next 24 hours We appreciate the hospitalist team for us to participate in patient's care. Greater than 55 minutes of time spent patient, reviewing chart, working on documentation LAQUITA CARTER Jr. PAC Oct 06, 2025 16:39
--- NOTE | 2025-10-06 17:41 | PN ---
[facility] PROGRESS NOTE Date of Service: Oct 06, 2025 Time of Service: 16:49 SUBJECTIVE: Patient is 75 years old female with a past medical history of dementia, hypertension, hyperlipidemia, Coronary Artery Disease, who came to emergency department with a complaint of stomach pain and vomiting. Due to advanced dementia family members/ at the bedside was able to give detailed info rmation. stated that since yesterday in the evening patient has been having stomach pain and was vomiting x2. Since she never complains of pain he decided to call 911 and bring her to the hospital for further evaluation/recommendations. Most recent vital signs temperature 98.1 pulse 63 respiration 18 blood pressure 124/67 patient is on room air satting 96%. WBc 13.6 hemoglobin 12.4 hematocrit 38.2 platelets 363] Urinalysis positive for leukocytosis patient was placed on Rocephin. Sodium 137 potassium 3.1 CO2 27 BUN 12 creatinine one GFR 58 glucose 159 C chest x-ray negative. The patient is admitted to the hospital for further management. 10/06/2025: Patient is seen and evaluated in the room 402. She is confused. She has no symptoms today. Today her vitals are in the normal range. Her labs are normal except for WBC 19.9, hemoglobin 11.9, potassium 3.2, glucose 113, TSH 4 .32, free T3 1.55. Urine culture showed Gram-negative rods but identification and sensitivity is pending. CT abdomen and pelvis showed acute cholecystitis with gallstones and a severely distended gallbladder. We consulted general surgery and they recommended US abdominal RUQ, HIDA scan and cardiac clearance. She failed her bedside swallow study so she is NPO and we ordered PPN. We spoke with her about hospice and he agreed to it. So we placed a consult community case manager for hospice and feeding tube. Case management cancelled the order for hospice as the spouse had a change of heart and wants to pursuit of health and nutrition. We consulted GI for PEG tube placement. REVIEW OF SYSTEMS CONSTITUTIONAL: Denies fevers, chills, or night sweats. No unintentional weight loss reported. NEUROLOGICAL: Denies headache, amaurosis fugax, motor weakness, sensory deficit, vertigo/spinning sensation, gait abnormalities, or tremors. ENT: No hearing loss, otalgia, otorrhea, rhinitis, rhinorrhea, hoarseness, or sore throat. CARDIOVASCULAR: Denies any exertional angina, dyspnea on exertion, orthopnea, paroxysmal nocturnal dyspnea, palpitations, life-threatening arrhythmias, claudication. PULMONARY: Denies any shortness of breath, cough, phlegm/sputum, hemoptysis, pleuritic chest pain. SLEEP: Denies morning headaches, daytime somnolence or napping. Denies difficulty falling asleep, staying asleep, waking from sleep. Denies knowledge of snoring. GASTROINTESTINAL: Denies any type of dysphagia to either liquids or solids. Denies abdominal pain, nausea, vomiting, pyrosis, early satiety, diarrhea, constipation, or changes in stool consistency or caliber. Denies coffee-ground emesis, hematemesis, hematochezia, or melanotic stools. GENITOURINARY: Denies frequency, urgency, nocturia, hematuria or incontinence (Storage/Irritative symptoms.) Low urinary stream, straining to void, urinary intermittency or hesitancy, splitting of the voiding stream, terminal dribbling. ENDOCRINOLOGIC: Denies polyuria, polydipsia, polyphagia or heat/cold intolerances. HEMATOLOGIC: Denies thrombophilia/previous clots, or coagulopathy/bleeding disorders. ONCOLOGIC: Denies personal history of malignancy. DERMATOLOGIC: Denies rashes or pruritus. PSYCHIATRIC: Denies any suicidal or homicidal ideation. Denies hallucinations. PHYSICAL EXAM GENERAL APPEARANCE: The patient is disoriented x3 NEUROLOGICAL: Cranial nerves II-XII grossly intact. Motor is 5/5 in bilateral upper and lower extremities proximal to distal. No sensory deficits. HEENT: Face is symmetric. Pupils are equal and reactive. Extraocular movements are intact. NECK: Supple. No JVD. No thyromegaly. No submental, submandibular, pre- /postauricular, occipital or supraclavicular lymphadenopathy. CHEST: Normal chest expansion. No Telemetry. LUNGS: Absence of any rales, rhonchi or any wheezing. CARDIOVASCULAR: Regular. S1 and S2 normal. No appreciable rubs, murmurs or gallops. ABDOMEN: Soft, nontender, and nondistended. There is no rebound, voluntary guarding, or rigidity. : Deferred. No Bernal. EXTREMITIES: Non-edematous and not cyanotic. No clubbing. Good capillary refill. SKIN: Stage II sacral ulcer Vital Signs (last 8hr) Date Time Temp Pulse Resp B/P (MAP) Pulse Ox O2 Delivery O2 Flow Rate FiO2 10/06/25 12:04 99.1 68 20 132/48 97 Room Air LABS: Laboratory: Test 10/06/25 03:29 10/06/25 03:28 10/05/25 05:18 10/05/25 01:39 Range/Units Free Thyroxine (T4) Direct 1.28 0.76-1.46 ng/dL Free Triiodothyronine (T3) pg/mL 1.55 L 2.18-3.98 pg/mL White Blood Count 19.9 H 4.8-10.8 K/uL Red Blood Count 3.92 L 4.00-5.50 MIL/uL Hemoglobin 11.9 L 12.0-16.0 g/dL Hematocrit 36.7 36-48 % Mean Corpuscular Volume 93.6 79-99 fL Mean Corpuscular Hemoglobin 30.4 27.0-33.0 pg Mean Corpuscular Hemoglobin Concent 32.4 32.0-36.0 g/dL Red Cell Distribution Width 13.8 11.0-15.5 % Platelet Count 346 130-400 K/uL Mean Platelet Volume 9.1 7.5-10.5 fL Immature Granulocyte % (Auto) 0.8 0-1 % Neutrophils (%) (Auto) 87.0 H 40.0-77.0 % Lymphocytes (%) (Auto) 4.5 L 21.0-51.0 % Monocytes (%) (Auto) 7.5 3.0-13.0 % Eosinophils (%) (Auto) 0.0 0.0-8.0 % Basophils (%) (Auto) 0.2 0.0-5.0 % Neutrophils # (Auto) 17.3 H 1.8-7.7 K/uL Lymphocytes # (Auto) 0.9 L 1.0-4.8 K/uL Monocytes # (Auto) 1.5 H 0.1-1.0 K/uL Eosinophils # (Auto) 0.00 0.00-0.70 K/uL Basophils # (Auto) 0.04 0.00-0.20 K/uL Absolute Immature Granulocyte (auto 0.16 0-1 K/uL Nucleated Red Blood Cells 0.0 0.0-0.19 % White Cell Morphology Comment CONSISTENT W/DIFF Platelet Morphology LARGE PLTS PRESENT Sodium Level 139 136-145 mmol/L Potassium Level 3.2 L 3.5-5.1 mmol/L Chloride Level 104 101-111 mmol/L Carbon Dioxide Level 29 21-32 mmol/L Blood Urea Nitrogen 8 7-18 mg/dL Creatinine 0.7 0.5-1.0 mg/dL Glomerular Filtration Rate Calc 90 >90 mL/min Random Glucose 113 H 70-105 mg/dL Total Calcium 8.4 L 8.5-10.1 mg/dL Magnesium Level 1.90 1.80-2.40 mg/dL Total Bilirubin 0.5 0.2-1.0 mg/dL Aspartate Amino Transf (AST/SGOT) 16 10-37 U/L Alanine Aminotransferase (ALT/SGPT) 15 12-78 U/L Alkaline Phosphatase 97 50-136 U/L Total Protein 7.2 6.0-8.3 g/dL Albumin 2.6 L 3.5-5.0 g/dL Thyroid Stimulating Hormone (TSH) 4.26 H 0.36-3.74 uIU/mL Urine Color LIGHT-YELLOW YELLOW Urine Appearance CLOUDY H CLEAR Urine pH 8.0 5.0-8.0 Urine Specific [place] 1.011 1.001-1.031 Urine Protein NEGATIVE NEGATIVE mg/dL Urine Glucose (UA) 30 H NEGATIVE mg/dL Urine Ketones NEGATIVE NEGATIVE mg/dL Urine Occult Blood SMALL H NEGATIVE Urine Nitrate 1+ H NEGATIVE Urine Bilirubin NEGATIVE NEGATIVE mg/dL Urine Urobilinogen 0.2 0.2-1.0 mg/dL Urine Leukocyte Esterase 500 H NEGATIVE Megan/uL Urine RBC 0-1 0-1 /HPF Urine WBC 6-10 H 0-1 /HPF Urine Squamous Epithelial Cells 0-2 0-2 /HPF Urine Amorphous Crystals (Auto) Moderate H None Seen /LPF Urine Bacteria Many H None Seen /HPF Hemoglobin A1c 5.3 4.0-6.0 % Estimated Average Glucose (eAG) 105 70-126 mg/dL Total Creatine Kinase 59 21-232 U/L Troponin I High Sensitivity 8 4-50 ng/L Current Medications Medications (Trade) Dose Ordered Sig/Juliane Route PRN Reason Start Time Stop Time Status Last Admin Dose Admin Ceftriaxone Sodium (ROCEphine 1G INJ) 1 gm BID IV 10/05/25 21:00 10/15/25 20:59 10/06/25 10:35 1 GM Docusate Sodium (COLace 100MG CAP) 100 mg BID PO 10/05/25 21:00 11/04/25 20:59 Donepezil HCl (ARIcept 5MG TAB) 5 mg DAILY PO 10/06/25 09:00 11/05/25 08:59 Fluoxetine HCl (FLUoxetine HCL 20 MG CAPSULE) 20 mg DAILY PO 10/06/25 09:00 11/05/25 08:59 Folic Acid (FOLic ACID 1 MG TABLET) 1 mg DAILY PO 10/06/25 09:00 11/05/25 08:59 Home Med (Home Medication) BID PO 10/05/25 21:00 11/04/25 20:59 Hydroxyzine HCl (ATArax 10MG TAB) 50 mg [id number] PRN PO ANXIETY/AGITATION 10/05/25 11:00 10/06/25 09:19 DC Hydroxyzine HCl (ATArax 25MG TAB) 50 mg Q12H PRN PO ANXIETY/AGITATION 10/06/25 09:30 11/04/25 10:59 Lactated Ringer's 1,000 ml @ 75 mls/hr [id number] IV 10/05/25 05:30 10/05/25 12:17 DC Magnesium Sulfate 50 ml @ 0 mls/hr PROTOCOL PRN IV OTHER [SEE ORDER COMMENTS] 10/05/25 05:30 11/04/25 05:29 Metronidazole/ Sodium Chloride (flaGYL) 500 mg Q8H IV 10/06/25 12:30 10/16/25 12:29 Mirtazapine (REMeron 15 MG TAB) 7.5 mg HS PO 10/05/25 21:00 11/04/25 20:59 Multivitamins/ Minerals 10 ml/ Folic Acid 1 mg/ Thiamine HCl 100 mg/Sodium Chloride 1,010 ml @ 50 mls/hr DAILY IV 10/05/25 12:00 10/08/25 05:11 10/06/25 12:05 50 MLS/HR Nystatin (NystOP 15 GM POWDER) apply to sacrum BID TP 10/05/25 21:00 11/04/25 20:59 10/06/25 10:42 1 APPL Potassium Chloride/Sodium Chloride 1,000 ml @ 100 mls/hr Q10H IV 10/05/25 03:00 10/05/25 03:35 DC Potassium Chloride 100 ml @ 50 mls/hr AD PRN IV POTASSIUM PROTOCOL 10/05/25 05:30 11/04/25 05:29 10/06/25 05:40 50 MLS/HR Wound Care/ Dressing Products (Venelex Ointment) apply to sacrum BID TP 10/05/25 21:00 11/04/25 20:59 10/06/25 10:42 1 GM DIAGNOSTICS / RADIOLOGY: [facility] [place] [address] [place] [address] IMAGING REPORT Addendum PATIENT: BRANNON LINDA MR#: [id number] : 1950 SEX: F AGE: 75 LOCATION: 4AH ORDER 1045 STATUS: ADM IN REPORT#: [id number] SERVICE 1044 REASON: abd pain ORDERING PHYSICIAN: FRANCISCO JAVIER [employer] PROCEDURE: ABD PEL WO - CT ABDOMEN/PELVIS W/O CONTRAST ADDENDUM REPORT ADDENDUM: Results were shared by telephone at 11:10 AM EST on 10-06-25 and acknowledged by ANICETO Allen. /[place] EXAM: CT Abdomen and Pelvis Without IV contrast CLINICAL HISTORY: abd pain TECHNIQUE: Axial computed tomography images of the abdomen and pelvis without intravenous contrast. CONTRAST: No IV contrast. COMPARISON: None provided. FINDINGS: LUNG BASES: Left minimal pleural effusion. Dependent atelectatic changes in the bilateral lower lobes. LIVER: A well-defined hypodense area in the right lobe of the liver measuring 11 x 6.5 mm (series 2; image 15). This may reflect a simple cyst; however, it would be better characterized with ultrasound on a non-emergent basis GALLBLADDER AND BILE DUCTS: Multiple radiolucent gallstones, the largest measuring 12 x 8.1 mm. The gallbladder is severely distended, measuring approximately 11 cm. Mild pericholecystic fat stranding. No abnormal gallbladder wall thickening. No biliary ductal dilatation is evident. PANCREAS: Unremarkable. SPLEEN: Unremarkable. ADRENAL GLANDS: Unremarkable. KIDNEYS, URETERS, AND BLADDER: The kidneys appear within normal limits. There is no hydronephrosis or hydroureter. No urinary calculi are seen. STOMACH AND BOWEL: Colonic diverticulosis with no features of acute diverticulitis. Unremarkable appearance of the stomach and rest of the bowel. No evidence of bowel obstruction. No evidence suggesting enteritis or colitis. APPENDIX: No evidence of acute appendicitis on CT examination. PERITONEUM: No free fluid. No free air. LYMPH NODES: No lymphadenopathy is evident. REPRODUCTIVE: Unremarkable as visualized. VASCULATURE: No evidence of abdominal aortic aneurysm. Mild atherocalcific changes in the abdominal aorta. BONES: No aggressive appearing osseous lesion. No acute osseous pathology is evident. IMPRESSION: Acute cholecystitis with gallstones and a severely distended gallbladder. US correlation is suggested. No urinary calculi. No hydronephrosis. No bowel obstruction or inflammation. Small left pleural effusion. /[place] DICTATED BY: LIZBETH ANDREW MD DATE: 10/06/25 1113 ELECTRONICALLY SIGNED BY: DATE: EXAM: CT Abdomen and Pelvis Without IV contrast CLINICAL HISTORY: abd pain TECHNIQUE: Axial computed tomography images of the abdomen and pelvis without intravenous contrast. CONTRAST: No IV contrast. COMPARISON: None provided. FINDINGS: LUNG BASES: Left minimal pleural effusion. Dependent atelectatic changes in the bilateral lower lobes. LIVER: A well-defined hypodense area in the right lobe of the liver measuring 11 x 6.5 mm (series 2; image 15). This may reflect a simple cyst; however, it would be better characterized with ultrasound on a non-emergent basis GALLBLADDER AND BILE DUCTS: Multiple radiolucent gallstones, the largest measuring 12 x 8.1 mm. The gallbladder is severely distended, measuring approximately 11 cm. Mild pericholecystic fat stranding. No abnormal gallbladder wall thickening. No biliary ductal dilatation is evident. PANCREAS: Unremarkable. SPLEEN: Unremarkable. ADRENAL GLANDS: Unremarkable. KIDNEYS, URETERS, AND BLADDER: The kidneys appear within normal limits. There is no hydronephrosis or hydroureter. No urinary calculi are seen. STOMACH AND BOWEL: Colonic diverticulosis with no features of acute diverticulitis. Unremarkable appearance of the stomach and rest of the bowel. No evidence of bowel obstruction. No evidence suggesting enteritis or colitis. APPENDIX: No evidence of acute appendicitis on CT examination. PERITONEUM: No free fluid. No free air. LYMPH NODES: No lymphadenopathy is evident. REPRODUCTIVE: Unremarkable as visualized. VASCULATURE: No evidence of abdominal aortic aneurysm. Mild atherocalcific changes in the abdominal aorta. BONES: No aggressive appearing osseous lesion. No acute osseous pathology is evident. IMPRESSION: Acute cholecystitis with gallstones and a severely distended gallbladder. US correlation is suggested. No urinary calculi. No hydronephrosis. No bowel obstruction or inflammation. Small left pleural effusion. /[place] DICTATED BY: LIZBETH ANDREW MD DATE: 10/06/25 103 ELECTRONICALLY SIGNED BY: LIZBETH ANDREW MD DATE: 10/06/25 103 ASSESSMENT: Failure to thrive POA Advanced dementia POA Acute complicated cystitis POA Incontinence of bladder and bowel POA Leukocytosis WBC 13.7 POA Acute cholecystitis Uncontrolled hypertension POA hypokalemia POA Uncontrolled diabetes mellitus type 2 with hypoglycemia POA Hyperlipidemia POA Coronary Artery Disease POA PLAN: Failure to thrive POA Advanced dementia POA On admission she is malnourished, drowsy and confused. Her BMI is 16. A bedside swallow study was done and she failed it and she is on NPO. Banana bag was ordered. We ordered PPN. We discussed with about hospice and he agreed to it. So we placed a consult community case manager for hospice and feeding tube. Case management cancelled the order for hospice as the spouse had a change of heart and wants to pursuit of health and nutrition. We consulted GI for PEG tube placement. Acute complicated cystitis POA Incontinence of bladder and bowel POA Leukocytosis WBC 13.7 POA Her urinalysis showed evidence of UTI. Urine culture showed gram negative rods. She is on ceftriaxone (day 2). Acute cholecystitis Complained of abdominal pain at the time of admission. So we did a CT scan of the abdomen and it showed acute cholecystitis. Added metronidazole (day 1). We consulted with General surgery and they recommended HIDA scan, ultrasound of right upper quadrant. Also recommended cardiac clearance for surgery. So we placed a consult for Cardiology. Uncontrolled hypertension POA Today her blood pressure is 123/42. Will monitor her blood pressure. hypokalemia POA Today her blood work show that her potassium level is 3.2. We replaced it by giving KCl. Will repeat the labs tomorrow. Uncontrolled diabetes mellitus type 2 with hypoglycemia POA Today her blood glucose level is 113. We will repeat her labs tomorrow. DVT prophylaxis with SCD. GI prophylaxis with pantoprazole. She is NPO and we started PPN. ATTESTATION BY PHYSICIAN I have seen and examined the patient. I reviewed the documentation, medical d ecision making, and treatment plan as noted by the resident physician above. I agree with the findings and plan of care. ABEBA HERRERA MD, AKSHAY MD Oct 06, 2025 17:41
--- NOTE | 2025-10-06 19:05 | HMCIMG ---
STUDY: ULTRASOUND ABDOMEN, RIGHT UPPER QUADRANT LIMITED CLINICAL INFORMATION: Suspected cholecystitis. TECHNIQUE: Targeted transabdominal ultrasound of the right upper quadrant was performed with grayscale and color Doppler imaging. COMPARISON: CT scan of the abdomen and pelvis without contrast from 10/05/2025. FINDINGS: LIVER: Liver measures approximately 12.5 cm in craniocaudal dimension with normal echotexture and contour. No focal hepatic mass is identified. Intrahepatic bile ducts are not dilated. GALL BLADDER: Gallbladder is markedly distended, measuring approximately 11.8 cm in length, with diffuse wall thickening/edema up to approximately 6 mm. Multiple intraluminal gallstones are present with associated layering sludge. Pericholecystic fluid is not clearly described, and sonographic Trent sign is not provided. Overall appearance is concordant with acute cholecystitis in the appropriate clinical setting. BILIARY TREE: Common bile duct measures approximately 4 mm in diameter, within normal limits. No intra- or extrahepatic biliary ductal dilatation is demonstrated. PANCREAS: Visualized portions of the pancreas appear normal in size and echotexture without focal lesion or ductal dilatation. RIGHT KIDNEY: Right kidney measures approximately 9.0 x 3.4 x 4.4 cm with preserved cortical thickness and corticomedullary differentiation. No hydronephrosis, renal calculus, or focal renal mass is demonstrated. AORTA AND IVC: Visualized segments of the aorta and inferior vena cava are normal in caliber and show normal color Doppler flow. OTHER: No significant free fluid is seen in the right upper quadrant. No right upper quadrant mass or collection is identified. IMPRESSION: * Markedly distended gallbladder with diffuse wall thickening (?6 mm), multiple gallstones, and sludge, consistent with acute calculous cholecystitis in the appropriate clinical context. * Common bile duct is normal in caliber (?4 mm) without sonographic evidence of biliary obstruction. * When compared with the CT abdomen and pelvis from 10/05/2025, which demonstrated acute cholecystitis with gallstones and a severely distended gallbladder, the current ultrasound confirms persistent acute cholecystitis. Prompt surgical consultation for cholecystectomy or alternative management is recommended based on overall clinical status. /[place]
--- NOTE | 2025-10-06 21:12 | CONS ---
GASTROENTEROLOGY CONSULTATION NOTE Date of Consultation: Oct 06, 2025 Time of Consultation: 21:12 History of Present Illness: This is a 75-year-old female with past medical history of dementia, hypertension, hyperlipidemia, CAD who presented due to stomach pain and vomiting. She failed MBSS and PEG tube was recommended. Review of Systems: CONSTITUTIONAL: No malaise or change in sensation of wellbeing. ENMT: No rhinorrhea, otorrhea, sinus pain, ear ache. CARDIOVASCULAR: No angina, palpitations, orthopnea or paroxysmal dyspnea. RESPIRATORY: No SOB. GASTROINTESTINAL: No abdominal pain, nausea, vomiting, diarrhea, hematemesis, melena or change in the patient's habitual bowel movements consistency/number. GENITOURINARY: No dysuria, hematuria or change in bladder continence. MUSCULOSKELETAL: No new muscle pain or decrease in muscular strength. No new joint swelling, redness or tenderness. SKIN: No new rash. Past Medical History: [ ] Past Surgical History: [ ] Past Social History: [ ] Family History: [ ] Coded Allergies: Penicillins (Verified Allergy, 11/20/13) Sulfa (Sulfonamide Antibiotics) (Verified Allergy, 11/20/13) Physical Exam: GEN: Awake, alert, oriented in person, time and place, and in no acute distress. HEENT: No sinus tenderness. Tympanic membranes were not examined. No rhinorrhea. Oral pharyngeal mucosa is pink, moist and within normal limits. Neck is supple with no cervical lymphadenopathy, thyromegaly or JVD. CHEST: Inspection, palpation and percussion of the chest were unremarkable. Lung auscultation revealed normal breath sounds bilaterally. CARDIAC: PMI is within normal limits. Heart sounds are regular. Normal S1, S2. No gallop or murmur. ABD: Soft, non-tender and not distended. No peritoneal signs on palpation. No organomegaly. Normal bowel sounds. EXT: No cyanosis or clubbing. No edema. SKIN: Intact. No rashes. JOINTS: No evidence of synovitis or acute arthritis. NEURO: Alert and oriented to name, place and person. Cranial nerve examination is unremarkable. No focal motor deficits. Normal speech. Gait is normal. Strength is normal. Vital Sign (Last 24 Hours) 10/06/25 10/06/25 08:01 17:05 Temp 98.2 Pulse 68 Resp 18 B/P (MAP) 123/42 Pulse Ox 97 O2 Delivery Room Air O2 Flow Rate 0 FiO2 21 Intake & Output (last 24hrs) 10/05/25 10/05/25 10/06/25 15:00 23:00 07:00 Intake Total 475.0 ml 275.0 ml 50.0 ml Output Total 500 ml 400 ml Balance 475.0 ml -225.0 ml -350.0 ml Laboratory: [ ] Laboratory: Test 10/06/25 03:29 10/06/25 03:28 10/05/25 05:18 10/05/25 01:39 Range/Units Free Thyroxine (T4) Direct 1.28 0.76-1.46 ng/dL Free Triiodothyronine (T3) pg/mL 1.55 L 2.18-3.98 pg/mL White Blood Count 19.9 H 4.8-10.8 K/uL Red Blood Count 3.92 L 4.00-5.50 MIL/uL Hemoglobin 11.9 L 12.0-16.0 g/dL Hematocrit 36.7 36-48 % Mean Corpuscular Volume 93.6 79-99 fL Mean Corpuscular Hemoglobin 30.4 27.0-33.0 pg Mean Corpuscular Hemoglobin Concent 32.4 32.0-36.0 g/dL Red Cell Distribution Width 13.8 11.0-15.5 % Platelet Count 346 130-400 K/uL Mean Platelet Volume 9.1 7.5-10.5 fL Immature Granulocyte % (Auto) 0.8 0-1 % Neutrophils (%) (Auto) 87.0 H 40.0-77.0 % Lymphocytes (%) (Auto) 4.5 L 21.0-51.0 % Monocytes (%) (Auto) 7.5 3.0-13.0 % Eosinophils (%) (Auto) 0.0 0.0-8.0 % Basophils (%) (Auto) 0.2 0.0-5.0 % Neutrophils # (Auto) 17.3 H 1.8-7.7 K/uL Lymphocytes # (Auto) 0.9 L 1.0-4.8 K/uL Monocytes # (Auto) 1.5 H 0.1-1.0 K/uL Eosinophils # (Auto) 0.00 0.00-0.70 K/uL Basophils # (Auto) 0.04 0.00-0.20 K/uL Absolute Immature Granulocyte (auto 0.16 0-1 K/uL Nucleated Red Blood Cells 0.0 0.0-0.19 % White Cell Morphology Comment CONSISTENT W/DIFF Platelet Morphology LARGE PLTS PRESENT Sodium Level 139 136-145 mmol/L Potassium Level 3.2 L 3.5-5.1 mmol/L Chloride Level 104 101-111 mmol/L Carbon Dioxide Level 29 21-32 mmol/L Blood Urea Nitrogen 8 7-18 mg/dL Creatinine 0.7 0.5-1.0 mg/dL Glomerular Filtration Rate Calc 90 >90 mL/min Random Glucose 113 H 70-105 mg/dL Total Calcium 8.4 L 8.5-10.1 mg/dL Magnesium Level 1.90 1.80-2.40 mg/dL Total Bilirubin 0.5 0.2-1.0 mg/dL Aspartate Amino Transf (AST/SGOT) 16 10-37 U/L Alanine Aminotransferase (ALT/SGPT) 15 12-78 U/L Alkaline Phosphatase 97 50-136 U/L Total Protein 7.2 6.0-8.3 g/dL Albumin 2.6 L 3.5-5.0 g/dL Thyroid Stimulating Hormone (TSH) 4.26 H 0.36-3.74 uIU/mL Urine Color LIGHT-YELLOW YELLOW Urine Appearance CLOUDY H CLEAR Urine pH 8.0 5.0-8.0 Urine Specific [place] 1.011 1.001-1.031 Urine Protein NEGATIVE NEGATIVE mg/dL Urine Glucose (UA) 30 H NEGATIVE mg/dL Urine Ketones NEGATIVE NEGATIVE mg/dL Urine Occult Blood SMALL H NEGATIVE Urine Nitrate 1+ H NEGATIVE Urine Bilirubin NEGATIVE NEGATIVE mg/dL Urine Urobilinogen 0.2 0.2-1.0 mg/dL Urine Leukocyte Esterase 500 H NEGATIVE Megan/uL Urine RBC 0-1 0-1 /HPF Urine WBC 6-10 H 0-1 /HPF Urine Squamous Epithelial Cells 0-2 0-2 /HPF Urine Amorphous Crystals (Auto) Moderate H None Seen /LPF Urine Bacteria Many H None Seen /HPF Hemoglobin A1c 5.3 4.0-6.0 % Estimated Average Glucose (eAG) 105 70-126 mg/dL Total Creatine Kinase 59 21-232 U/L Troponin I High Sensitivity 8 4-50 ng/L Current Medications Medications (Trade) Dose Ordered Sig/Juliane Route PRN Reason Start Time Stop Time Status Last Admin Dose Admin Ceftriaxone Sodium (ROCEphine 1G INJ) 1 gm BID IV 10/05/25 21:00 10/15/25 20:59 10/06/25 10:35 1 GM Docusate Sodium (COLace 100MG CAP) 100 mg BID PO 10/05/25 21:00 11/04/25 20:59 Donepezil HCl (ARIcept 5MG TAB) 5 mg DAILY PO 10/06/25 09:00 11/05/25 08:59 Fluoxetine HCl (FLUoxetine HCL 20 MG CAPSULE) 20 mg DAILY PO 10/06/25 09:00 11/05/25 08:59 Folic Acid (FOLic ACID 1 MG TABLET) 1 mg DAILY PO 10/06/25 09:00 11/05/25 08:59 Home Med (Home Medication) BID PO 10/05/25 21:00 11/04/25 20:59 Hydroxyzine HCl (ATArax 10MG TAB) 50 mg [id number] PRN PO ANXIETY/AGITATION 10/05/25 11:00 10/06/25 09:19 DC Hydroxyzine HCl (ATArax 25MG TAB) 50 mg Q12H PRN PO ANXIETY/AGITATION 10/06/25 09:30 11/04/25 10:59 Lactated Ringer's 1,000 ml @ 75 mls/hr [id number] IV 10/05/25 05:30 10/05/25 12:17 DC Magnesium Sulfate 50 ml @ 0 mls/hr PROTOCOL PRN IV OTHER [SEE ORDER COMMENTS] 10/05/25 05:30 11/04/25 05:29 Metronidazole/ Sodium Chloride (flaGYL) 500 mg Q8H IV 10/06/25 12:30 10/16/25 12:29 10/06/25 17:20 500 MG Mirtazapine (REMeron 15 MG TAB) 7.5 mg HS PO 10/05/25 21:00 11/04/25 20:59 Multivitamins/ Minerals 10 ml/ Folic Acid 1 mg/ Thiamine HCl 100 mg/Sodium Chloride 1,010 ml @ 50 mls/hr DAILY IV 10/05/25 12:00 10/08/25 05:11 10/06/25 12:05 50 MLS/HR Nystatin (NystOP 15 GM POWDER) apply to sacrum BID TP 10/05/25 21:00 11/04/25 20:59 10/06/25 10:42 1 APPL Pantoprazole Sodium (PROTonix 40MG INJ) 40 mg DAILY IVP 10/07/25 09:00 11/06/25 08:59 Potassium Chloride/Sodium Chloride 1,000 ml @ 100 mls/hr Q10H IV 10/05/25 03:00 10/05/25 03:35 DC Potassium Chloride 100 ml @ 50 mls/hr AD PRN IV POTASSIUM PROTOCOL 10/05/25 05:30 11/04/25 05:29 10/06/25 05:40 50 MLS/HR Wound Care/ Dressing Products (Venelex Ointment) apply to sacrum BID TP 10/05/25 21:00 11/04/25 20:59 10/06/25 10:42 1 GM Diagnostics / Radiology: [COPY/PASTE HERE IF NO REPORTS PLEASE DELETE SECTION] Assessment: Oropharyngeal dysphagia Feeding difficulties Plan: EGD with PEG in [facility] Oct 06, 2025 21:12
--- NOTE | 2025-10-06 21:23 | HMCIMG ---
EXAM: HIDA scan. INDICATION: Severe RUQ Pain with cholelithiasis. Suspected cholecystitis. REFERENCE EXAMINATION: None. TECHNIQUE: Sequential images of the abdomen were obtained in the anterior projection after IV administration of 7.0 mCi of Tc99m Mebrofenin. FINDINGS: Tracer activity throughout the liver is homogeneous without focal defects. There is prompt excretion of the pharmaceutical into the bile ducts and into the small bowel, without evidence of obstruction. There is no visualization of the gallbladder at the conclusion of the examination. IMPRESSION: Scintigraphic findings are compatible with acute cholecystitis. /Palm
[2025-10-07] VITALS (21 sets, daily range): BP systolic 104–151; BP diastolic 40–66; PULSE 56–76; RESP 15–18; TEMP 97.1–99.6; O2SAT 93–95
[2025-10-07 03:52] LABS: NUCLEATED RED BLOOD CELLS 0.0 % (0.0-0.19); PLATELET COUNT (AUTO) 305.0 K/uL (130-400); RED BLOOD CELL COUNT(AUTO) 3.99 MIL/uL (4.00-5.50); RED CELL DISTRIBUTION WIDTH 13.9 % (11.0-15.5); WHITE BLOOD COUNT (AUTO) 22.5 K/uL (4.8-10.8)
[2025-10-07 04:07] LABS: CREATININE 0.6 mg/dL (0.5-1.0); GLOMERULAR FILTR. RATE CALC 93.0 mL/min (>90); GLUCOSE,RANDOM 93.0 mg/dL (70-105); PHOSPHORUS 2.7 mg/dL (2.5-4.9); SODIUM SERUM 140.0 mmol/L (136-145); UREA NITROGEN, BLOOD 10.0 mg/dL (7-18)
--- NOTE | 2025-10-07 08:30 | NUR ---
PROCEDURE PATIENT OFF UNIT. IN PROCEDURE FOR PEG TUBE PLACEMENT.
[2025-10-07 08:48] LABS: INR 1.14 (0.85-1.15)
[2025-10-07] MEDS ORDERED: LIDOCAINE HCL 400MG/20ML VIAL ONE (09:42)
--- NOTE | 2025-10-07 10:20 | NUR ---
PATIENT REPORT RECEIVED REPORT FROM RUT IN PACU. PATIENT UNDERWENT UPPER GI WITH PEG INSERTION. GTUBE CLEAN DRY AND INTACT. CLEAN AREA DAILY. MEDICATIONS THROUGH PEG TUBE CAN BE GIVEN NOW, START FEEDINGS IN SIX HOURS. VITALS: BLOOD PRESSURE; 108/52, HR 60, SPO2-94-95% ON RA.
--- NOTE | 2025-10-07 10:35 | NUR ---
UNIT ARRIVAL RECEIVED PATIENT FROM RUT PACU NURSE. PATIENT RESTING COMFORTABLY, NO SIGNS OF DISTRESS NOTED. POST OP VITALS INITIATED. SCD'S APPLIED. AT BEDSIDE. ORDERS FOR DIETARY CONSULT PLACED FOR FORMULA RECOMMENDATIONS. BED LOCKED AND IN LOWEST POSITION. CALL LIGHT WITHIN REACH.
[2025-10-07] MEDS: M.V.I. IV [ADULT] 10 ML, MULTITRACE-4 ADULT 10ML VIAL 3 ML in CLINIMIX-E4.25%AA/D5+LYT2... IV ONE (12:23)
--- NOTE | 2025-10-07 13:00 | NUR ---
PROCEDURE PATIENT PENDING CHOLECYSTOSTOMY TUBE PLACEMENT WITH IR. ORDERS FAXED TO SCHEDULING. CONSENT OBTAINED.
--- NOTE | 2025-10-07 15:30 | NUR ---
PROCEDURE CHOLECYSTOSTOMY TUBE PLACEMENT WILL NOT BE DONE TODAY. MD AND CHARGE NURSE AWARE. AT BEDSIDE, UPDATED IN PATIENT STATUS.
--- NOTE | 2025-10-07 15:30 | NUR ---
PPN FEEDING PATIENT TO START TUBE FEEDING OF JEVITY 1.5, PER RESIDENT DR. MORELAND STOP CLINIMIX WHEN TF IS STARTED.
--- NOTE | 2025-10-07 17:30 | NUR ---
TUBE FEEDING CONTINUOUS FEEDING OF JEVITY 1.5 STARTED AT 10 ML/HR. PATIENT'S ABDOMEN IS SOFT, NONDISTENDED, AND BOWEL SOUNDS ARE PRESENT IN ALL FOUR QUADRANTS. HOB ELEVATED AT 30 DEGREES. PEG TUBE DRESSING CLEAN DRY AND INTACT. NO REDNESS NO SWELLING NOTED. PEG TUBE FLUSHED WITH 30 ML OF H20 PRIOR TO FEEDING. NO SIGNS OF NAUSEA OR DISCOMFORT NOTED. CONTINUE WITH JEVITY 1.5 AT RATE OF 10 ML/HR X 10 HOURS, INCREASE BY 5 ML EVERY 8 HOURS UNTIL GOAL RATE OF 35 ML/HR IS REACHED. H20 FLUSH OF 200 ML EVERY SIX HOURS/PRN.
--- NOTE | 2025-10-07 19:48 | PN ---
[facility] PROGRESS NOTE Date of Service: Oct 07, 2025 Time of Service: 19:33 SUBJECTIVE: Patient is 75 years old female with a past medical history of dementia, hypertension, hyperlipidemia, Coronary Artery Disease, who came to emergency department with a complaint of stomach pain and vomiting. Due to advanced dementia family members/ at the bedside was able to give detailed info rmation. stated that since yesterday in the evening patient has been having stomach pain and was vomiting x2. Since she never complains of pain he decided to call 911 and bring her to the hospital for further evaluation/recommendations. Most recent vital signs temperature 98.1 pulse 63 respiration 18 blood pressure 124/67 patient is on room air satting 96%. WBc 13.6 hemoglobin 12.4 hematocrit 38.2 platelets 363] Urinalysis positive for leukocytosis patient was placed on Rocephin. Sodium 137 potassium 3.1 CO2 27 BUN 12 creatinine one GFR 58 glucose 159 C chest x-ray negative. The patient is admitted to the hospital for further management. 10/06/2025: Patient is seen and evaluated in the room 402. She is confused. She has no symptoms today. Today her vitals are in the normal range. Her labs are normal except for WBC 19.9, hemoglobin 11.9, potassium 3.2, glucose 113, TSH 4 .32, free T3 1.55. Urine culture showed Gram-negative rods but identification and sensitivity is pending. CT abdomen and pelvis showed acute cholecystitis with gallstones and a severely distended gallbladder. We consulted general surgery and they recommended US abdominal RUQ, HIDA scan and cardiac clearance. She failed her bedside swallow study so she is NPO and we ordered PPN. We spoke with her about hospice and he agreed to it. So we placed a consult manager of case for hospice and feeding tube. Case management cancelled the order for hospice as the spouse had a change of heart and wants to pursuit of health and nutrition. We consulted GI for PEG tube placement. 10/07/2025: Patient is seen and evaluated in the room 402. She is sleeping. Her says that she is much better when compared to yesterday. Her vitals are in the normal range. Her labs are normal except for WBC is 22.5, potassium is 3.4. She underwent a PEG tube placement today. Her US abdomen showed acute calculus cholecystitis and HIDA showed the same. We cancelled the cardiac consult. We consulted IR for the placement of cholecystostomy tube but they couldn't do it today. They deferred the procedure to Sunday. The nurse told that she will start feeding through PEG tube from today at 4pm. REVIEW OF SYSTEMS CONSTITUTIONAL: Denies fevers, chills, or night sweats. No unintentional weight loss reported. NEUROLOGICAL: Denies headache, amaurosis fugax, motor weakness, sensory deficit, vertigo/spinning sensation, gait abnormalities, or tremors. ENT: No hearing loss, otalgia, otorrhea, rhinitis, rhinorrhea, hoarseness, or sore throat. CARDIOVASCULAR: Denies any exertional angina, dyspnea on exertion, orthopnea, paroxysmal nocturnal dyspnea, palpitations, life-threatening arrhythmias, claudication. PULMONARY: Denies any shortness of breath, cough, phlegm/sputum, hemoptysis, pleuritic chest pain. SLEEP: Denies morning headaches, daytime somnolence or napping. Denies difficulty falling asleep, staying asleep, waking from sleep. Denies knowledge of snoring. GASTROINTESTINAL: Denies any type of dysphagia to either liquids or solids. Denies abdominal pain, nausea, vomiting, pyrosis, early satiety, diarrhea, constipation, or changes in stool consistency or caliber. Denies coffee-ground emesis, hematemesis, hematochezia, or melanotic stools. GENITOURINARY: Denies frequency, urgency, nocturia, hematuria or incontinence (Storage/Irritative symptoms.) Low urinary stream, straining to void, urinary intermittency or hesitancy, splitting of the voiding stream, terminal dribbling. ENDOCRINOLOGIC: Denies polyuria, polydipsia, polyphagia or heat/cold intolerances. HEMATOLOGIC: Denies thrombophilia/previous clots, or coagulopathy/bleeding disorders. ONCOLOGIC: Denies personal history of malignancy. DERMATOLOGIC: Denies rashes or pruritus. PSYCHIATRIC: Denies any suicidal or homicidal ideation. Denies hallucinations. PHYSICAL EXAM GENERAL APPEARANCE: The patient is disoriented x3 NEUROLOGICAL: Cranial nerves II-XII grossly intact. Motor is 5/5 in bilateral upper and lower extremities proximal to distal. No sensory deficits. HEENT: Face is symmetric. Pupils are equal and reactive. Extraocular movements are intact. NECK: Supple. No JVD. No thyromegaly. No submental, submandibular, pre-/postau ricular, occipital or supraclavicular lymphadenopathy. CHEST: Normal chest expansion. No Telemetry. LUNGS: Absence of any rales, rhonchi or any wheezing. CARDIOVASCULAR: Regular. S1 and S2 normal. No appreciable rubs, murmurs or gallops. ABDOMEN: Soft, nontender, and nondistended. There is no rebound, voluntary guarding, or rigidity. : Deferred. No Bernal. EXTREMITIES: Non-edematous and not cyanotic. No clubbing. Good capillary refill. SKIN: Stage II sacral ulcer Vital Signs (last 8hr) Date Time Temp Pulse Resp B/P (MAP) Pulse Ox O2 Delivery O2 Flow Rate FiO2 10/07/25 15:03 97.9 71 16 129/66 90 Room Air 10/07/25 14:13 Mask 10/07/25 14:12 Mask 10.0 10/07/25 13:25 71 17 151/64 90 Room Air 10/07/25 12:25 67 17 133/57 93 Room Air 10/07/25 11:55 97.2 69 17 130/63 90 Room Air LABS: Laboratory: Test 10/07/25 15:19 10/07/25 08:18 10/07/25 03:17 10/06/25 03:29 Range/Units Whole Blood Glucose 110 70-110 MG/DL Prothrombin Time 11.9 H 9.6-11.6 SEC Prothromb Time International Ratio 1.14 0.85-1.15 Activated Partial Thromboplast Time 34.2 26.3-35.5 SEC White Blood Count 22.5 H 4.8-10.8 K/uL Red Blood Count 3.99 L 4.00-5.50 MIL/uL Hemoglobin 12.1 12.0-16.0 g/dL Hematocrit 37.1 36-48 % Mean Corpuscular Volume 93.0 79-99 fL Mean Corpuscular Hemoglobin 30.3 27.0-33.0 pg Mean Corpuscular Hemoglobin Concent 32.6 32.0-36.0 g/dL Red Cell Distribution Width 13.9 11.0-15.5 % Platelet Count 305 130-400 K/uL Mean Platelet Volume 9.0 7.5-10.5 fL Nucleated Red Blood Cells 0.0 0.0-0.19 % Sodium Level 140 136-145 mmol/L Potassium Level 3.4 L 3.5-5.1 mmol/L Chloride Level 105 101-111 mmol/L Carbon Dioxide Level 24 21-32 mmol/L Blood Urea Nitrogen 10 7-18 mg/dL Creatinine 0.6 0.5-1.0 mg/dL Glomerular Filtration Rate Calc 93 >90 mL/min Random Glucose 93 70-105 mg/dL Total Calcium 8.6 8.5-10.1 mg/dL Phosphorus Level 2.7 2.5-4.9 mg/dL Magnesium Level 2.10 1.80-2.40 mg/dL Free Thyroxine (T4) Direct 1.28 0.76-1.46 ng/dL Free Triiodothyronine (T3) pg/mL 1.55 L 2.18-3.98 pg/mL Test 10/06/25 03:28 Range/Units Immature Granulocyte % (Auto) 0.8 0-1 % Neutrophils (%) (Auto) 87.0 H 40.0-77.0 % Lymphocytes (%) (Auto) 4.5 L 21.0-51.0 % Monocytes (%) (Auto) 7.5 3.0-13.0 % Eosinophils (%) (Auto) 0.0 0.0-8.0 % Basophils (%) (Auto) 0.2 0.0-5.0 % Neutrophils # (Auto) 17.3 H 1.8-7.7 K/uL Lymphocytes # (Auto) 0.9 L 1.0-4.8 K/uL Monocytes # (Auto) 1.5 H 0.1-1.0 K/uL Eosinophils # (Auto) 0.00 0.00-0.70 K/uL Basophils # (Auto) 0.04 0.00-0.20 K/uL Absolute Immature Granulocyte (auto 0.16 0-1 K/uL White Cell Morphology Comment CONSISTENT W/DIFF Platelet Morphology LARGE PLTS PRESENT Total Bilirubin 0.5 0.2-1.0 mg/dL Aspartate Amino Transf (AST/SGOT) 16 10-37 U/L Alanine Aminotransferase (ALT/SGPT) 15 12-78 U/L Alkaline Phosphatase 97 50-136 U/L Total Protein 7.2 6.0-8.3 g/dL Albumin 2.6 L 3.5-5.0 g/dL Thyroid Stimulating Hormone (TSH) 4.26 H 0.36-3.74 uIU/mL Current Medications Medications (Trade) Dose Ordered Sig/Juliane Route PRN Reason Start Time Stop Time Status Last Admin Dose Admin Ceftriaxone Sodium (ROCEphine 1G INJ) 1 gm BID IV 10/05/25 21:00 10/15/25 20:59 10/06/25 21:51 1 GM Docusate Sodium (COLace 100MG CAP) 100 mg BID PO 10/05/25 21:00 11/04/25 20:59 Donepezil HCl (ARIcept 5MG TAB) 5 mg DAILY PO 10/06/25 09:00 11/05/25 08:59 Fluoxetine HCl (FLUoxetine HCL 20 MG CAPSULE) 20 mg DAILY PO 10/06/25 09:00 11/05/25 08:59 Folic Acid (FOLic ACID 1 MG TABLET) 1 mg DAILY PO 10/06/25 09:00 11/05/25 08:59 Home Med (Home Medication) BID PO 10/05/25 21:00 11/04/25 20:59 Hydroxyzine HCl (ATArax 10MG TAB) 50 mg [id number] PRN PO ANXIETY/AGITATION 10/05/25 11:00 10/06/25 09:19 DC Hydroxyzine HCl (ATArax 25MG TAB) 50 mg Q12H PRN PO ANXIETY/AGITATION 10/06/25 09:30 11/04/25 10:59 Lactated Ringer's 1,000 ml @ 75 mls/hr [id number] IV 10/05/25 05:30 10/05/25 12:17 DC Magnesium Sulfate 50 ml @ 0 mls/hr PROTOCOL PRN IV OTHER [SEE ORDER COMMENTS] 10/05/25 05:30 11/04/25 05:29 Metronidazole/ Sodium Chloride (flaGYL) 500 mg Q8H IV 10/06/25 12:30 10/16/25 12:29 10/07/25 13:27 500 MG Mirtazapine (REMeron 15 MG TAB) 7.5 mg HS PO 10/05/25 21:00 11/04/25 20:59 Multivitamins/ Minerals 10 ml/ Folic Acid 1 mg/ Thiamine HCl 100 mg/Sodium Chloride 1,010 ml @ 50 mls/hr DAILY IV 10/05/25 12:00 10/08/25 05:11 10/06/25 12:05 50 MLS/HR Nystatin (NystOP 15 GM POWDER) apply to sacrum BID TP 10/05/25 21:00 11/04/25 20:59 10/07/25 12:24 1 APPL Pantoprazole Sodium (PROTonix 40MG INJ) 40 mg DAILY IVP 10/07/25 09:00 11/06/25 08:59 Potassium Chloride/Sodium Chloride 1,000 ml @ 100 mls/hr Q10H IV 10/05/25 03:00 10/05/25 03:35 DC Potassium Chloride 100 ml @ 50 mls/hr AD PRN IV POTASSIUM PROTOCOL 10/05/25 05:30 11/04/25 05:29 10/07/25 04:38 50 MLS/HR Wound Care/ Dressing Products (Venelex Ointment) apply to sacrum BID TP 10/05/25 21:00 11/04/25 20:59 10/07/25 12:24 1 [facility] / RADIOLOGY: [place] [address] IMAGING REPORT Signed PATIENT: BRANNON LINDA MR#: [id number] : 1950 SEX: F AGE: 75 LOCATION: 4AH ORDER 35 STATUS: ADM IN REPORT#: [id number] SERVICE 163 REASON: cholecystitis ORDERING PHYSICIAN: LAQUITA CARTER Jr. PAC PROCEDURE: [id number] - US ABDOMINAL RUQ\LTD STUDY: ULTRASOUND ABDOMEN, RIGHT UPPER QUADRANT LIMITED CLINICAL INFORMATION: Suspected cholecystitis. TECHNIQUE: Targeted transabdominal ultrasound of the right upper quadrant was performed with grayscale and color Doppler imaging. COMPARISON: CT scan of the abdomen and pelvis without contrast from 10/05/2025. FINDINGS: LIVER: Liver measures approximately 12.5 cm in craniocaudal dimension with normal echotexture and contour. No focal hepatic mass is identified. Intrahepatic bile ducts are not dilated. GALL BLADDER: Gallbladder is markedly distended, measuring approximately 11.8 cm in length, with diffuse wall thickening/edema up to approximately 6 mm. Multiple intraluminal gallstones are present with associated layering sludge. Pericholecystic fluid is not clearly described, and sonographic Trent sign is not provided. Overall appearance is concordant with acute cholecystitis in the appropriate clinical setting. BILIARY TREE: Common bile duct measures approximately 4 mm in diameter, within normal limits. No intra- or extrahepatic biliary ductal dilatation is demonstrated. PANCREAS: Visualized portions of the pancreas appear normal in size and echotexture without focal lesion or ductal dilatation. RIGHT KIDNEY: Right kidney measures approximately 9.0 x 3.4 x 4.4 cm with preserved cortical thickness and corticomedullary differentiation. No hydronephrosis, renal calculus, or focal renal mass is demonstrated. AORTA AND IVC: Visualized segments of the aorta and inferior vena cava are normal in caliber and show normal color Doppler flow. OTHER: No significant free fluid is seen in the right upper quadrant. No right upper quadrant mass or collection is identified. IMPRESSION: * Markedly distended gallbladder with diffuse wall thickening (?6 mm), multiple gallstones, and sludge, consistent with acute calculous cholecystitis in the appropriate clinical context. * Common bile duct is normal in caliber (?4 mm) without sonographic evidence of biliary obstruction. * When compared with the CT abdomen and pelvis from 10/05/2025, which demonstrated acute cholecystitis with gallstones and a severely distended gallbladder, the current ultrasound confirms persistent acute cholecystitis. Prompt surgical consultation for cholecystectomy or alternative management is recommended based on overall clinical status. /[place] DICTATED BY: CHERYL DE DIOS MD DATE: 10/06/252003 ELECTRONICALLY SIGNED BY: CHERYL DE DIOS MD DATE: 10/06/252003 [place] [address] [address] IMAGING REPORT Addendum PATIENT: BRANNON LINDA MR#: [id number] : 1950 SEX: F AGE: 75 LOCATION: [facility] ORDER [id number] STATUS: ADM IN REPORT#: [id number] SERVICE 1800 REASON: cholecystitis ORDERING PHYSICIAN: LAQUITA CARTER Jr. PAC PROCEDURE: HIDAWO - NM HIDA WO EF/CCK ADDENDUM REPORT ADDENDUM: Results were shared by telephone at 10:35 PM EST on 10-06-2025 and acknowledged by the Patient's Nurse Ms. Azra Rosa /[place] EXAM: HIDA scan. INDICATION: Severe RUQ Pain with cholelithiasis. Suspected cholecystitis. REFERENCE EXAMINATION: None. TECHNIQUE: Sequential images of the abdomen were obtained in the anterior projection after IV administration of 7.0 mCi of Tc99m Mebrofenin. FINDINGS: Tracer activity throughout the liver is homogeneous without focal defects. There is prompt excretion of the pharmaceutical into the bile ducts and into the small bowel, without evidence of obstruction. There is no visualization of the gallbladder at the conclusion of the examination. IMPRESSION: Scintigraphic findings are compatible with acute cholecystitis. /[place] DICTATED BY: MARIA ANTONIA SARGENT Jr., MD DATE: 10/06/252251 ELECTRONICALLY SIGNED BY: DATE: EXAM: HIDA scan. INDICATION: Severe RUQ Pain with cholelithiasis. Suspected cholecystitis. REFERENCE EXAMINATION: None. TECHNIQUE: Sequential images of the abdomen were obtained in the anterior projection after IV administration of 7.0 mCi of Tc99m Mebrofenin. FINDINGS: Tracer activity throughout the liver is homogeneous without focal defects. There is prompt excretion of the pharmaceutical into the bile ducts and into the small bowel, without evidence of obstruction. There is no visualization of the gallbladder at the conclusion of the examination. IMPRESSION: Scintigraphic findings are compatible with acute cholecystitis. /[place] DICTATED BY: MARIA ANTONIA SARGENT Jr., MD DATE: 10/06/252221 ELECTRONICALLY SIGNED BY: MARIA ANTONIA SARGENT Jr., MD DATE: 10/06/252221 ASSESSMENT: Failure to thrive POA Advanced dementia POA Acute complicated cystitis POA Incontinence of bladder and bowel POA Leukocytosis WBC 13.7 POA Acute cholecystitis Uncontrolled hypertension POA hypokalemia POA Uncontrolled diabetes mellitus type 2 with hypoglycemia POA Hyperlipidemia POA Coronary Artery Disease POA PLAN: Failure to thrive POA Advanced dementia POA On admission she is malnourished, drowsy and confused. Her BMI is 16. A bedside swallow study was done and she failed it and she is on NPO. Banana bag was ordered. We ordered PPN. We discussed with about hospice and he agreed to it. So we placed a consult manager of case for hospice and feeding tube. Case management cancelled the order for hospice as the spouse had a change of heart and wants to pursuit of health and nutrition. We consulted GI for PEG tube placement. She underwent PEG tube placement today. The nurse told that she will start feeding through the PEG tube today at 4pm. Acute complicated cystitis POA Incontinence of bladder and bowel POA Leukocytosis WBC 13.7 POA Her urinalysis showed evidence of UTI. Urine culture showed Proteus which is pansensitive. She is on ceftriaxone (day 3). Acute cholecystitis Complained of abdominal pain at the time of admission. So we did a CT scan of the abdomen and it showed acute cholecystitis. Added metronidazole (day 2). We consulted with General surgery and they recommended HIDA scan, ultrasound of right upper quadrant. Also recommended cardiac clearance for surgery. So we placed a consult for Cardiology but we cancelled the clearance for surgery. We placed an IR consult for cholecystostomy tube placement but it is deferred to Sunday. Uncontrolled hypertension POA Today her blood pressure is 136/65. Will monitor her blood pressure. hypokalemia POA Today her blood work show that her potassium level is 3.4. We replaced it by giving KCl. Will repeat the labs tomorrow. Uncontrolled diabetes mellitus type 2 with hypoglycemia POA Today her blood glucose level is 110. We will repeat her labs tomorrow. DVT prophylaxis with SCD. GI prophylaxis with pantoprazole. She is on tube feeding. ATTESTATION BY PHYSICIAN I have seen and examined the patient. I reviewed the documentation, medical decision making, and treatment plan as noted by the resident physician above. I agree with the findings and plan of care. ABEBA HERRERA MD, AKSHAY MD Oct 07, 2025 19:48
--- NOTE | 2025-10-07 20:18 | NUR ---
H2O FLUSH 200ML FLUSH, PATIENT TOLERATED WELL.
[2025-10-08] VITALS: BP 110/48; PULSE 64; RESP 18; TEMP 99.1
--- NOTE | 2025-10-08 02:00 | NUR ---
TUBE FEEDING RESIDUAL AMOUNT <2ML TUBE FEEDING NOW AT 15ML/HR, TOLERATING WELL. ABDOMEN IS SOFT AND ACTIVE BOWEL SOUNDS X4 QUADRANTS.
--- NOTE | 2025-10-08 03:15 | NUR ---
H20 FLUSH 200ML FLUSH PATIENT TOLERATED WELL.
[2025-10-08 04:00] VITALS: BP 122/54; PULSE 66; RESP 18; TEMP 98.9
[2025-10-08 04:06] LABS: NUCLEATED RED BLOOD CELLS 0.0 % (0.0-0.19); PLATELET COUNT (AUTO) 291.0 K/uL (130-400); RED BLOOD CELL COUNT(AUTO) 4.01 MIL/uL (4.00-5.50); RED CELL DISTRIBUTION WIDTH 14.0 % (11.0-15.5); WHITE BLOOD COUNT (AUTO) 25.2 K/uL (4.8-10.8)
[2025-10-08 04:22] LABS: CREATININE 0.6 mg/dL (0.5-1.0); GLOMERULAR FILTR. RATE CALC 93.0 mL/min (>90); GLUCOSE,RANDOM 116.0 mg/dL (70-105); PHOSPHORUS 2.3 mg/dL (2.5-4.9); SODIUM SERUM 140.0 mmol/L (136-145); UREA NITROGEN, BLOOD 14.0 mg/dL (7-18)
[2025-10-08 08:00] VITALS: BP 115/51; PULSE 62; RESP 16; TEMP 98; O2SAT 96
[2025-10-08 12:00] VITALS: BP 110/59; PULSE 73; RESP 16; TEMP 97.9
--- NOTE | 2025-10-08 14:16 | PN ---
[facility] PROGRESS NOTE Date of Service: Oct 08, 2025 Time of Service: 14:07 SUBJECTIVE: Patient is 75 years old female with a past medical history of dementia, hypertension, hyperlipidemia, Coronary Artery Disease, who came to emergency department with a complaint of stomach pain and vomiting. Due to advanced dementia family members/ at the bedside was able to give detailed info rmation. stated that since yesterday in the evening patient has been having stomach pain and was vomiting x2. Since she never complains of pain he decided to call 911 and bring her to the hospital for further evaluation/recommendations. Most recent vital signs temperature 98.1 pulse 63 respiration 18 blood pressure 124/67 patient is on room air satting 96%. WBc 13.6 hemoglobin 12.4 hematocrit 38.2 platelets 363] Urinalysis positive for leukocytosis patient was placed on Rocephin. Sodium 137 potassium 3.1 CO2 27 BUN 12 creatinine one GFR 58 glucose 159 C chest x-ray negative. The patient is admitted to the hospital for further management. 10/06/2025: Patient is seen and evaluated in the room 402. She is confused. She has no symptoms today. Today her vitals are in the normal range. Her labs are normal except for WBC 19.9, hemoglobin 11.9, potassium 3.2, glucose 113, TSH 4 .32, free T3 1.55. Urine culture showed Gram-negative rods but identification and sensitivity is pending. CT abdomen and pelvis showed acute cholecystitis with gallstones and a severely distended gallbladder. We consulted general surgery and they recommended US abdominal RUQ, HIDA scan and cardiac clearance. She failed her bedside swallow study so she is NPO and we ordered PPN. We spoke with her about hospice and he agreed to it. So we placed a consult case investigator for hospice and feeding tube. Case management cancelled the order for hospice as the spouse had a change of heart and wants to pursuit of health and nutrition. We consulted GI for PEG tube placement. 10/07/2025: Patient is seen and evaluated in the room 402. She is sleeping. Her says that she is much better when compared to yesterday. Her vitals are in the normal range. Her labs are normal except for WBC is 22.5, potassium is 3.4. She underwent a PEG tube placement today. Her US abdomen showed acute calculus cholecystitis and HIDA showed the same. We cancelled the cardiac consult. We consulted IR for the placement of cholecystostomy tube but they couldn't do it today. They deferred the procedure to Sunday. The nurse told that she will start feeding through PEG tube from today at 4pm. 10/08/2025: Patient is seen and evaluated in the room 402. Her said that she is hungry and thirsty. She is receiving tube feeds through the PEG tube. On examination her abdomen is tender to touch in the right upper quadrant. Her vital signs are in the normal range. Her labs are normal except for WBC 25.2, potassium 2.7, glucose 116, phosphorus 2.3. She is receiving feeding through the PEG tube. Patient is tolerating tube feeding. As her phosphorus level is low and we added phos-NaK packet three times a day. We are waiting for the placement of cholecystostomy tube by IR which is to be done tomorrow. REVIEW OF SYSTEMS CONSTITUTIONAL: hungry and thirsty Denies fevers, chills, or night sweats. No unintentional weight loss reported. NEUROLOGICAL: Denies headache, amaurosis fugax, motor weakness, sensory de ficit, vertigo/spinning sensation, gait abnormalities, or tremors. ENT: No hearing loss, otalgia, otorrhea, rhinitis, rhinorrhea, hoarseness, or sore throat. CARDIOVASCULAR: Denies any exertional angina, dyspnea on exertion, orthopnea, paroxysmal nocturnal dyspnea, palpitations, life-threatening arrhythmias, claudication. PULMONARY: Denies any shortness of breath, cough, phlegm/sputum, hemoptysis, pleuritic chest pain. SLEEP: Denies morning headaches, daytime somnolence or napping. Denies difficulty falling asleep, staying asleep, waking from sleep. Denies knowledge of snoring. GASTROINTESTINAL: Denies any type of dysphagia to either liquids or solids. Denies abdominal pain, nausea, vomiting, pyrosis, early satiety, diarrhea, constipation, or changes in stool consistency or caliber. Denies coffee-ground emesis, hematemesis, hematochezia, or melanotic stools. GENITOURINARY: Denies frequency, urgency, nocturia, hematuria or incontinence (Storage/Irritative symptoms.) Low urinary stream, straining to void, urinary intermittency or hesitancy, splitting of the voiding stream, terminal dribbling. ENDOCRINOLOGIC: Denies polyuria, polydipsia, polyphagia or heat/cold intolerances. HEMATOLOGIC: Denies thrombophilia/previous clots, or coagulopathy/bleeding disorders. ONCOLOGIC: Denies personal history of malignancy. DERMATOLOGIC: Denies rashes or pruritus. PSYCHIATRIC: Denies any suicidal or homicidal ideation. Denies hallucinations. PHYSICAL EXAM GENERAL APPEARANCE: The patient is disoriented x3 NEUROLOGICAL: Cranial nerves II-XII grossly intact. Motor is 5/5 in bilateral upper and lower extremities proximal to distal. No sensory deficits. HEENT: Face is symmetric. Pupils are equal and reactive. Extraocular movements are intact. NECK: Supple. No JVD. No thyromegaly. No submental, submandibular, pre-/postauricular, occipital or supraclavicular lymphadenopathy. CHEST: Normal chest expansion. No Telemetry. LUNGS: Absence of any rales, rhonchi or any wheezing. CARDIOVASCULAR: Regular. S1 and S2 normal. No appreciable rubs, murmurs or gallops. ABDOMEN: Tender to touch in the right upper quadrant. Soft and nondistended. There is no rebound, voluntary guarding, or rigidity. : Deferred. No Bernal. EXTREMITIES: Non-edematous and not cyanotic. No clubbing. Good capillary refill. SKIN: Stage II sacral ulcer Vital Signs (last 8hr) Date Time Temp Pulse Resp B/P (MAP) Pulse Ox O2 Delivery O2 Flow Rate FiO2 10/08/25 12:00 97.9 73 16 110/59 94 Room Air 21 10/08/25 08:00 98.1 62 16 115/51 96 Room Air 21 10/08/25 08:00 96 Room Air* 0 21 LABS: Laboratory: Test 10/08/25 03:51 10/07/25 15:19 10/07/25 08:18 Range/Units White Blood Count 25.2 H 4.8-10.8 K/uL Red Blood Count 4.01 4.00-5.50 MIL/uL Hemoglobin 12.4 12.0-16.0 g/dL Hematocrit 36.4 36-48 % Mean Corpuscular Volume 90.8 79-99 fL Mean Corpuscular Hemoglobin 30.9 27.0-33.0 pg Mean Corpuscular Hemoglobin Concent 34.1 32.0-36.0 g/dL Red Cell Distribution Width 14.0 11.0-15.5 % Platelet Count 291 130-400 K/uL Mean Platelet Volume 9.2 7.5-10.5 fL Nucleated Red Blood Cells 0.0 0.0-0.19 % Sodium Level 140 136-145 mmol/L Potassium Level 2.7 *L 3.5-5.1 mmol/L Chloride Level 106 101-111 mmol/L Carbon Dioxide Level 25 21-32 mmol/L Blood Urea Nitrogen 14 7-18 mg/dL Creatinine 0.6 0.5-1.0 mg/dL Glomerular Filtration Rate Calc 93 >90 mL/min Random Glucose 116 H 70-105 mg/dL Total Calcium 8.3 L 8.5-10.1 mg/dL Phosphorus Level 2.3 L 2.5-4.9 mg/dL Magnesium Level 2.10 1.80-2.40 mg/dL Whole Blood Glucose 110 70-110 MG/DL Prothrombin Time 11.9 H 9.6-11.6 SEC Prothromb Time International Ratio 1.14 0.85-1.15 Activated Partial Thromboplast Time 34.2 26.3-35.5 SEC Current Medications Medications (Trade) Dose Ordered Sig/Juliane Route PRN Reason Start Time Stop Time Status Last Admin Dose Admin Ceftriaxone Sodium (ROCEphine 1G INJ) 1 gm BID IV 10/05/25 21:00 10/15/25 20:59 10/08/25 10:30 1 GM Docusate Sodium (COLace 100MG CAP) 100 mg BID PO 10/05/25 21:00 11/04/25 20:59 10/08/25 10:50 100 MG Donepezil HCl (ARIcept 5MG TAB) 5 mg DAILY PO 10/06/25 09:00 11/05/25 08:59 10/08/25 10:50 5 MG Fluoxetine HCl (FLUoxetine HCL 20 MG CAPSULE) 20 mg DAILY PO 10/06/25 09:00 11/05/25 08:59 10/08/25 10:50 20 MG Folic Acid (FOLic ACID 1 MG TABLET) 1 mg DAILY PO 10/06/25 09:00 11/05/25 08:59 10/08/25 10:50 1 MG Home Med (Home Medication) BID PO 10/05/25 21:00 11/04/25 20:59 Hydroxyzine HCl (ATArax 10MG TAB) 50 mg [id number] PRN PO ANXIETY/AGITATION 10/05/25 11:00 10/06/25 09:19 DC Hydroxyzine HCl (ATArax 25MG TAB) 50 mg Q12H PRN PO ANXIETY/AGITATION 10/06/25 09:30 11/04/25 10:59 Lactated Ringer's 1,000 ml @ 75 mls/hr [id number] IV 10/05/25 05:30 10/05/25 12:17 DC Magnesium Sulfate 50 ml @ 0 mls/hr PROTOCOL PRN IV OTHER [SEE ORDER COMMENTS] 10/05/25 05:30 11/04/25 05:29 Metronidazole/ Sodium Chloride (flaGYL) 500 mg Q8H IV 10/06/25 12:30 10/16/25 12:29 10/08/25 04:45 500 MG Mirtazapine (REMeron 15 MG TAB) 7.5 mg HS PO 10/05/25 21:00 11/04/25 20:59 10/07/25 20:18 7.5 MG Multivitamins/ Minerals 10 ml/ Folic Acid 1 mg/ Thiamine HCl 100 mg/Sodium Chloride 1,010 ml @ 50 mls/hr DAILY IV 10/05/25 12:00 10/08/25 05:11 DC 10/06/25 12:05 50 MLS/HR Nystatin (NystOP 15 GM POWDER) apply to sacrum BID TP 10/05/25 21:00 11/04/25 20:59 10/08/25 10:55 1 APPL Pantoprazole Sodium (PROTonix 40MG INJ) 40 mg DAILY IVP 10/07/25 09:00 11/06/25 08:59 10/08/25 10:47 40 MG Potassium Chloride/Sodium Chloride 1,000 ml @ 100 mls/hr Q10H IV 10/05/25 03:00 10/05/25 03:35 DC Potassium Chloride 100 ml @ 50 mls/hr AD PRN IV POTASSIUM PROTOCOL 10/05/25 05:30 11/04/25 05:29 10/08/25 05:52 50 MLS/HR Potassium Phos/ Sodium Phos (PHOS-NaK PACKET 1 EACH) 1 packet TID PO 10/08/25 14:00 11/07/25 13:59 Wound Care/ Dressing Products (Venelex Ointment) apply to sacrum BID TP 10/05/25 21:00 11/04/25 20:59 10/08/25 10:55 1 GM DIAGNOSTICS / RADIOLOGY: [ ] ASSESSMENT: Failure to thrive POA Advanced dementia POA Acute complicated cystitis POA Incontinence of bladder and bowel POA Leukocytosis WBC 13.7 POA Acute cholecystitis Uncontrolled hypertension POA hypokalemia POA Hypophosphatemia Uncontrolled diabetes mellitus type 2 with hypoglycemia POA Hyperlipidemia POA Coronary Artery Disease POA PLAN: Failure to thrive POA Advanced dementia POA On admission she is malnourished, drowsy and confused. Her BMI is 16. A bedside swallow study was done and she failed it and she is on NPO. Banana bag was ordered. We ordered PPN. We discussed with about hospice and he agreed to it. So we placed a consult case investigator for hospice and feeding tube. Case management cancelled the order for hospice as the spouse had a change of heart and wants to pursuit of health and nutrition. We consulted GI for PEG tube placement. She underwent PEG tube placement today. She is receiving tube feeding through the PEG tube. She is able to tolerate her feeds. Acute complicated cystitis POA Incontinence of bladder and bowel POA Leukocytosis WBC 13.7 POA Her urinalysis showed evidence of UTI. Urine culture showed Proteus which is pansensitive. She is on ceftriaxone (day 5). Acute cholecystitis Complained of abdominal pain at the time of admission. So we did a CT scan of the abdomen and it showed acute cholecystitis. Added metronidazole (day 4). We consulted with General surgery and they recommended HIDA scan, ultrasound of right upper quadrant. Also recommended cardiac clearance for surgery. So we placed a consult for Cardiology but we cancelled the clearance for surgery as she is poor candidate for surgery . HIDA scan showed acute cholecystitis. Ultrasound of abdomen showed acute calculous cholecystitis. We placed an IR consult for cholecystostomy tube placement but it is deferred to tomorrow. Uncontrolled hypertension POA Today her blood pressure is 110/59. Will monitor her blood pressure. hypokalemia POA Today her blood work show that her potassium level is 2.9. We replaced it by giving KCl. Will repeat the labs tomorrow. Hypophosphatemia Her phosphorus level is 2.3. We replaced it by giving Phos- NaK packet TID through tube feeds. We will repeat the labs tomorrow. Uncontrolled diabetes mellitus type 2 with hypoglycemia POA Today her blood glucose level is 116. We will repeat her labs tomorrow. DVT prophylaxis with SCD. GI prophylaxis with pantoprazole. She is on tube feeding. ATTESTATION BY PHYSICIAN I have seen and examined the patient. I reviewed the documentation, medical decision making, and treatment plan as noted by the resident physician above. I agree with the findings and plan of care. ABEBA HERRERA MD, AKSHAY MD Oct 08, 2025 14:16
[2025-10-08 16:00] VITALS: BP 125/56; PULSE 80; RESP 16; TEMP 99.1
--- NOTE | 2025-10-08 16:00 | PN ---
This is a 75-year-old frail patient with concerns for cholecystitis Interval history: This 75-year-old female seen in her room Attempt to see patient made yesterday but patient undergoing PEG placement Patient is now tolerating feeds HIDA results up in consistent with cholecystitis WBCs elevated Patient continues on IV fluids and IV antibiotics Patient is still poor candidate for surgical intervention Physical exam General: Awake alert and oriented Heart: Regular rate and rhythm} Lungs: Clear to auscultation no distress Abdomen: [Soft, nontender, nondistended Assessment : This is a 75-year-old female with concerns for cholecystitis Plan: With the patient is being poor candidate for surgical intervention we will replace cholecystostomy tube placement by IR Patient is currently on tube feeds through PEG Nursing report any further acute events Nursing to reach out to radiology for potential scheduling of percutaneous cholecystostomy tube placement Surgical case has been discussed with my supervising physician in the above plan was formulated and agreed upon We appreciate the hospitalist team for us to participate in patient's care. Greater than 45 minutes of time spent patient, reviewing chart, working on documentation Vitals/Labs Vital Signs Date Time Temp Pulse Resp B/P (MAP) Pulse Ox O2 Delivery O2 Flow Rate FiO2 10/08/25 12:00 97.9 73 16 110/59 94 Room Air 21 10/08/25 08:00 0 Laboratory Tests 10/08/25 03:51 Medications Current Medications Haloperidol Lactate 2 mg ONCE ONCE IM Last administered on 10/05/25at 03:33; Start 10/05/25 at 03:00; Stop 10/05/25 at 03:08; Status DC Potassium Chloride/Sodium Chloride 1,000 ml @ 100 mls/hr Q10H IV; Start 10/05/25 at 03:00; Stop 10/05/25 at 03:35; Status DC Lorazepam 1 mg ONCE ONCE IVP Last administered on 10/05/25at 03:33; Start 10/05/25 at 03:00; Stop 10/05/25 at 03:08; Status DC Potassium Chloride/Sodium Chloride 1,000 ml @ 500 mls/hr Q2H ONCE IV Last administered on 10/05/25at 05:01; Start 10/05/25 at 04:00; Stop 10/05/25 at 05:59; Status DC Ceftriaxone Sodium 1 gm ONCE ONCE IVPB Last administered on 10/05/25at 04:58; Start 10/05/25 at 05:00; Stop 10/05/25 at 05:01; Status DC Ceftriaxone Sodium 1 gm BID IV Last administered on 10/08/25at 10:30; Start 10/05/25 at 21:00; Stop 10/15/25 at 20:59 Lactated Ringer's 1,000 ml @ 75 mls/hr [id number] IV; Start 10/05/25 at 05:30; Stop 10/05/25 at 12:17; Status DC Magnesium Sulfate 50 ml @ 0 mls/hr PROTOCOL PRN IV; Start 10/05/25 at 05:30; Stop 11/04/25 at 05:29 Potassium Chloride 100 ml @ 50 mls/hr AD PRN IV Last administered on 10/08/25at 05:52; Start 10/05/25 at 05:30; Stop 11/04/25 at 05:29 Docusate Sodium 100 mg BID PO Last administered on 10/08/25at 10:50; Start 10/05/25 at 21:00; Stop 11/04/25 at 20:59 Donepezil HCl 5 mg DAILY PO Last administered on 10/08/25at 10:50; Start 10/06/25 at 09:00; Stop 11/05/25 at 08:59 Fluoxetine HCl 20 mg DAILY PO Last administered on 10/08/25at 10:50; Start 10/06/25 at 09:00; Stop 11/05/25 at 08:59 Folic Acid 1 mg DAILY PO Last administered on 10/08/25at 10:50; Start 10/06/25 at 09:00; Stop 11/05/25 at 08:59 Hydroxyzine HCl 50 mg [id number] PRN PO; Start 10/05/25 at 11:00; Stop 10/06/25 at 09:19; Status DC Home Med BID PO; Start 10/05/25 at 21:00; Stop 11/04/25 at 20:59 Mirtazapine 7.5 mg HS PO Last administered on 10/07/25at 20:18; Start 10/05/25 at 21:00; Stop 11/04/25 at 20:59 Potassium Chloride 100 ml @ 50 mls/hr ONCE ONCE IV Last administered on 10/05/25at 11:34; Start 10/05/25 at 11:00; Stop 10/05/25 at 12:59; Status DC Potassium Chloride 100 ml @ 50 mls/hr ONCE ONCE IV Last administered on 10/05/25at 16:37; Start 10/05/25 at 16:00; Stop 10/05/25 at 17:59; Status DC Multivitamins/ Minerals 10 ml/ Folic Acid 1 mg/ Thiamine HCl 100 mg/Sodium Chloride 1,010 ml @ 50 mls/hr DAILY IV Last administered on 10/06/25at 12:05; Start 10/05/25 at 12:00; Stop 10/08/25 at 05:11; Status DC Wound Care/ Dressing Products apply to sacrum BID TP Last administered on 10/08/25at 10:55; Start 10/05/25 at 21:00; Stop 11/04/25 at 20:59 Nystatin apply to sacrum BID TP Last administered on 10/08/25at 10:55; Start 10/05/25 at 21:00; Stop 11/04/25 at 20:59 Hydroxyzine HCl 50 mg Q12H PRN PO; Start 10/06/25 at 09:30; Stop 11/04/25 at 10:59 Metronidazole/ Sodium Chloride 500 mg Q8H IV Last administered on 10/08/25at 14:41; Start 10/06/25 at 12:30; Stop 10/16/25 at 12:29 Pantoprazole Sodium 40 mg DAILY IVP Last administered on 10/08/25at 10:47; Start 10/07/25 at 09:00; Stop 11/06/25 at 08:59 Multivitamins/ Minerals 10 ml/ Chromium/Copper/ Manganese/Zinc 3 ml/Amino Acids/ Electrolytes/ Dextrose 2,000 ml @ 80 mls/hr ONCE ONCE IV Last administered on 10/07/25at 12:23; Start 10/07/25 at 08:00; Stop 10/08/25 at 08:59; Status DC Cefazolin Sodium 1 gm STK-MED ONCE .ROUTE; Start 10/07/25 at 09:26; Stop 10/07/25 at 09:26; Status DC Cefazolin Sodium 1 gm STAT ONCE IVPB; Start 10/07/25 at 10:00; Stop 10/07/25 at 10:01; Status DC Propofol 200 mg STK-MED ONCE IV; Start 10/07/25 at 09:42; Stop 10/07/25 at 09:42; Status DC Lidocaine HCl 20 ml STK-MED ONCE .ROUTE; Start 10/07/25 at 09:42; Stop 10/07/25 at 09:42; Status DC Potassium Phos/ Sodium Phos 1 packet TID PO Last administered on 10/08/25at 15:08; Start 10/08/25 at 14:00; Stop 11/07/25 at 13:59 LAQUITA CARTER Jr. PAC Oct 08, 2025 16:00
--- NOTE | 2025-10-08 16:59 | PN ---
GASTROENTEROLOGY PROGRESS NOTE Date of Visit: Oct 08, 2025 Time of Visit: 16:59 Events / Notes: [ ] Review of Systems: CONSTITUTIONAL: No malaise or change in sensation of wellbeing. ENMT: No rhinorrhea, otorrhea, sinus pain, ear ache. CARDIOVASCULAR: No angina, palpitations, orthopnea or paroxysmal dyspnea. RESPIRATORY: No SOB. GASTROINTESTINAL: No abdominal pain, nausea, vomiting, diarrhea, hematemesis, melena or change in the patient's habitual bowel movements consistency/number. GENITOURINARY: No dysuria, hematuria or change in bladder continence. MUSCULOSKELETAL: No new muscle pain or decrease in muscular strength. No new joint swelling, redness or tenderness. SKIN: No new rash. Physical Exam: GEN: Awake, alert, oriented in person, time and place, and in no acute distress. HEENT: No sinus tenderness. Tympanic membranes were not examined. No rhinorrhea. Oral pharyngeal mucosa is pink, moist and within normal limits. Neck is supple with no cervical lymphadenopathy, thyromegaly or JVD. CHEST: Inspection, palpation and percussion of the chest were unremarkable. Lung auscultation revealed normal breath sounds bilaterally. CARDIAC: PMI is within normal limits. Heart sounds are regular. Normal S1, S2. No gallop or murmur. ABD: Soft, non-tender and not distended. No peritoneal signs on palpation. No organomegaly. Normal bowel sounds. EXT: No cyanosis or clubbing. No edema. SKIN: Intact. No rashes. JOINTS: No evidence of synovitis or acute arthritis. NEURO: Alert and oriented to name, place and person. Cranial nerve examination is unremarkable. No focal motor deficits. Normal speech. Gait is normal. Strength is normal. Vital Signs (last 8hr) Date Time Temp Pulse Resp B/P (MAP) Pulse Ox O2 Delivery O2 Flow Rate FiO2 10/08/25 16:00 99.1 80 16 125/56 93 Room Air 21 10/08/25 12:00 97.9 73 16 110/59 94 Room Air 21 Laboratory: [ ] Laboratory: Test 10/08/25 03:51 10/07/25 15:19 10/07/25 08:18 Range/Units White Blood Count 25.2 H 4.8-10.8 K/uL Red Blood Count 4.01 4.00-5.50 MIL/uL Hemoglobin 12.4 12.0-16.0 g/dL Hematocrit 36.4 36-48 % Mean Corpuscular Volume 90.8 79-99 fL Mean Corpuscular Hemoglobin 30.9 27.0-33.0 pg Mean Corpuscular Hemoglobin Concent 34.1 32.0-36.0 g/dL Red Cell Distribution Width 14.0 11.0-15.5 % Platelet Count 291 130-400 K/uL Mean Platelet Volume 9.2 7.5-10.5 fL Nucleated Red Blood Cells 0.0 0.0-0.19 % Sodium Level 140 136-145 mmol/L Potassium Level 2.7 *L 3.5-5.1 mmol/L Chloride Level 106 101-111 mmol/L Carbon Dioxide Level 25 21-32 mmol/L Blood Urea Nitrogen 14 7-18 mg/dL Creatinine 0.6 0.5-1.0 mg/dL Glomerular Filtration Rate Calc 93 >90 mL/min Random Glucose 116 H 70-105 mg/dL Total Calcium 8.3 L 8.5-10.1 mg/dL Phosphorus Level 2.3 L 2.5-4.9 mg/dL Magnesium Level 2.10 1.80-2.40 mg/dL Whole Blood Glucose 110 70-110 MG/DL Prothrombin Time 11.9 H 9.6-11.6 SEC Prothromb Time International Ratio 1.14 0.85-1.15 Activated Partial Thromboplast Time 34.2 26.3-35.5 SEC Current Medications Medications (Trade) Dose Ordered Sig/Juliane Route PRN Reason Start Time Stop Time Status Last Admin Dose Admin Ceftriaxone Sodium (ROCEphine 1G INJ) 1 gm BID IV 10/05/25 21:00 10/15/25 20:59 10/08/25 10:30 1 GM Docusate Sodium (COLace 100MG CAP) 100 mg BID PO 10/05/25 21:00 11/04/25 20:59 10/08/25 10:50 100 MG Donepezil HCl (ARIcept 5MG TAB) 5 mg DAILY PO 10/06/25 09:00 11/05/25 08:59 10/08/25 10:50 5 MG Fluoxetine HCl (FLUoxetine HCL 20 MG CAPSULE) 20 mg DAILY PO 10/06/25 09:00 11/05/25 08:59 10/08/25 10:50 20 MG Folic Acid (FOLic ACID 1 MG TABLET) 1 mg DAILY PO 10/06/25 09:00 11/05/25 08:59 10/08/25 10:50 1 MG Home Med (Home Medication) BID PO 10/05/25 21:00 11/04/25 20:59 Hydroxyzine HCl (ATArax 10MG TAB) 50 mg [id number] PRN PO ANXIETY/AGITATION 10/05/25 11:00 10/06/25 09:19 DC Hydroxyzine HCl (ATArax 25MG TAB) 50 mg Q12H PRN PO ANXIETY/AGITATION 10/06/25 09:30 11/04/25 10:59 Lactated Ringer's 1,000 ml @ 75 mls/hr [id number] IV 10/05/25 05:30 10/05/25 12:17 DC Magnesium Sulfate 50 ml @ 0 mls/hr PROTOCOL PRN IV OTHER [SEE ORDER COMMENTS] 10/05/25 05:30 11/04/25 05:29 Metronidazole/ Sodium Chloride (flaGYL) 500 mg Q8H IV 10/06/25 12:30 10/16/25 12:29 10/08/25 14:41 500 MG Mirtazapine (REMeron 15 MG TAB) 7.5 mg HS PO 10/05/25 21:00 11/04/25 20:59 10/07/25 20:18 7.5 MG Multivitamins/ Minerals 10 ml/ Folic Acid 1 mg/ Thiamine HCl 100 mg/Sodium Chloride 1,010 ml @ 50 mls/hr DAILY IV 10/05/25 12:00 10/08/25 05:11 DC 10/06/25 12:05 50 MLS/HR Nystatin (NystOP 15 GM POWDER) apply to sacrum BID TP 10/05/25 21:00 11/04/25 20:59 10/08/25 10:55 1 APPL Pantoprazole Sodium (PROTonix 40MG INJ) 40 mg DAILY IVP 10/07/25 09:00 11/06/25 08:59 10/08/25 10:47 40 MG Potassium Chloride/Sodium Chloride 1,000 ml @ 100 mls/hr Q10H IV 10/05/25 03:00 10/05/25 03:35 DC Potassium Chloride 100 ml @ 50 mls/hr AD PRN IV POTASSIUM PROTOCOL 10/05/25 05:30 11/04/25 05:29 10/08/25 05:52 50 MLS/HR Potassium Phos/ Sodium Phos (PHOS-NaK PACKET 1 EACH) 1 packet TID PO 10/08/25 14:00 11/07/25 13:59 10/08/25 15:08 1 PACKET Wound Care/ Dressing Products (Venelex Ointment) apply to sacrum BID TP 10/05/25 21:00 11/04/25 20:59 10/08/25 10:55 1 GM Diagnostics / Radiology: [COPY/PASTE HERE IF NO REPORTS PLEASE DELETE SECTION] Assessment: Oropharyngeal dysphagia Feeding difficulties Plan: JONN QUEZADA [employer] SERVICES DIRECTOR Oct 08, 2025 16:59
[2025-10-08 20:00] VITALS: BP 103/43; PULSE 81; RESP 18; TEMP 99.8; O2SAT 93
--- NOTE | 2025-10-08 21:15 | NUR ---
H20 FLUSH, FEEDING RATE CHANGED NO RESIDUAL 200ML WATER FLUSH WITH MEDS, BUMPED FEEDING UP TO 25ML/HR. PATIENT TOLERATED WELL.
[2025-10-08] MEDS: LACTATED RINGERS 1000ML 1,000 ML IV SCH (23:57)
--- NOTE | 2025-10-08 23:57 | NUR ---
FEEDING STOPPED AT THIS TIME PEG TUBE CLAMPED.
[2025-10-09] VITALS (16 sets, daily range): BP systolic 87–153; BP diastolic 44–72; PULSE 61–76; RESP 16–18; TEMP 97.5–98.9; O2SAT 94
[2025-10-09 04:02] LABS: NUCLEATED RED BLOOD CELLS 0.0 % (0.0-0.19); PLATELET COUNT (AUTO) 279.0 K/uL (130-400); RED BLOOD CELL COUNT(AUTO) 3.73 MIL/uL (4.00-5.50); RED CELL DISTRIBUTION WIDTH 14.0 % (11.0-15.5); WHITE BLOOD COUNT (AUTO) 21.2 K/uL (4.8-10.8)
[2025-10-09 04:21] LABS: CREATININE 0.7 mg/dL (0.5-1.0); GLOMERULAR FILTR. RATE CALC 90.0 mL/min (>90); GLUCOSE,RANDOM 95.0 mg/dL (70-105); PHOSPHORUS 2.8 mg/dL (2.5-4.9); SODIUM SERUM 139.0 mmol/L (136-145); UREA NITROGEN, BLOOD 11.0 mg/dL (7-18)
--- NOTE | 2025-10-09 13:00 | NUR ---
PROCEDURE PATIENT OFF UNIT FOR CHOLECYSTOSTOMY TUBE PLACEMENT.
[2025-10-09] MEDS ORDERED: MIDAZOLAM HCL 1 MG/ML 2ML VIAL ONE (13:14)
[2025-10-09] MEDS ORDERED: HEParin-NS 1,000 UNIT/500 ML 500 ML IV ONE (13:44)
[2025-10-09] MEDS ORDERED: LIDOCAINE HCL 1% MDV 50ML VIAL ONE (13:44)
[2025-10-09] MEDS ORDERED: IOHEXOL-350 50ML VIAL IV ONE (13:44)
--- NOTE | 2025-10-09 13:45 | NUR ---
PATIENT REPORT RECEIVED REPORT FROM [facility] IN [facility]. CHOLOCYSTOMY TUBE IN PLACE, 8 FR DRAIN TO RUQ. GRAVITY DRAINAGE BAG IN PLACE. I&O QSHIFT. KEEP DRESSING IN PLACE FOR 72 HOURS, CHANGE NEEDED. BILE COLLECTED AND SENT FOR CULTURE. VITALS B/P 134/55, HR 70, SPO2-96% VIA 2L.
--- NOTE | 2025-10-09 14:05 | NUR ---
UNIT ARRIVAL RECEIVED PATIENT FROM [facility] IN [facility]. PATIENT RESTING COMFORTABLY. NO SIGNS OF PAIN OR DISTRESS NOTED. POST OP VITALS INITIATED. DRAIN TO RUQ. INCISION SITE CLEAN AND DRY. DARK FLUID IN DRAINAGE BAG NOTED. BED LOCKED AND IN LOWEST POSITION. CALL LIGHT WITHIN REACH. AT BEDSIDE. H20 FLUSH 200 ADMINISTERED. TUBE FEEDING RESTARTED. NO RESIDUAL NOTED.
--- NOTE | 2025-10-09 16:33 | PN ---
[facility] PROGRESS NOTE Date of Service: Oct 09, 2025 Time of Service: 16:21 SUBJECTIVE: Patient is 75 years old female with a past medical history of dementia, hypertension, hyperlipidemia, Coronary Artery Disease, who came to emergency department with a complaint of stomach pain and vomiting. Due to advanced dementia family members/ at the bedside was able to give detailed info rmation. stated that since yesterday in the evening patient has been having stomach pain and was vomiting x2. Since she never complains of pain he decided to call 911 and bring her to the hospital for further evaluation/recommendations. Most recent vital signs temperature 98.1 pulse 63 respiration 18 blood pressure 124/67 patient is on room air satting 96%. WBc 13.6 hemoglobin 12.4 hematocrit 38.2 platelets 363] Urinalysis positive for leukocytosis patient was placed on Rocephin. Sodium 137 potassium 3.1 CO2 27 BUN 12 creatinine one GFR 58 glucose 159 C chest x-ray negative. The patient is admitted to the hospital for further management. 10/06/2025: Patient is seen and evaluated in the room 402. She is confused. She has no symptoms today. Today her vitals are in the normal range. Her labs are normal except for WBC 19.9, hemoglobin 11.9, potassium 3.2, glucose 113, TSH 4 .32, free T3 1.55. Urine culture showed Gram-negative rods but identification and sensitivity is pending. CT abdomen and pelvis showed acute cholecystitis with gallstones and a severely distended gallbladder. We consulted general surgery and they recommended US abdominal RUQ, HIDA scan and cardiac clearance. She failed her bedside swallow study so she is NPO and we ordered PPN. We spoke with her about hospice and he agreed to it. So we placed a consult cyanide case hardener for hospice and feeding tube. Case management cancelled the order for hospice as the spouse had a change of heart and wants to pursuit of health and nutrition. We consulted GI for PEG tube placement. 10/07/2025: Patient is seen and evaluated in the room 402. She is sleeping. Her says that she is much better when compared to yesterday. Her vitals are in the normal range. Her labs are normal except for WBC is 22.5, potassium is 3.4. She underwent a PEG tube placement today. Her US abdomen showed acute calculus cholecystitis and HIDA showed the same. We cancelled the cardiac consult. We consulted IR for the placement of cholecystostomy tube but they couldn't do it today. They deferred the procedure to Sunday. The nurse told that she will start feeding through PEG tube from today at 4pm. 10/08/2025: Patient is seen and evaluated in the room 402. Her said that she is hungry and thirsty. She is receiving tube feeds through the PEG tube. On examination her abdomen is tender to touch in the right upper quadrant. Her vital signs are in the normal range. Her labs are normal except for WBC 25.2, potassium 2.7, glucose 116, phosphorus 2.3. She is receiving feeding through the PEG tube. Patient is tolerating tube feeding. As her phosphorus level is low and we added phos-NaK packet three times a day. We are waiting for the placement of cholecystostomy tube by IR which is to be done tomorrow. 10/09/2025: Patient is seen and evaluated in the room 402. Her is saying that she woke up once and most of the time she is sleeping. She complained of abdominal pain. Her abdomen is tender to touch. Vital signs are in the normal range. Labs are normal except for WBC 21.2, hemoglobin 11.3, potassium 3.1. Overnight her tube feedings as stopped and she was kept NPO for the procedure. Today we added lactated ringer and IV Tylenol for pain. She underwent cholecystostomy tube placement by IR today. Bile culture with a Gram stain is ordered today by IR. The nurse told me that she will be resuming the tube feeding today. REVIEW OF SYSTEMS CONSTITUTIONAL: hungry and thirsty Denies fevers, chills, or night sweats. No unintentional weight loss reported. NEUROLOGICAL: Denies headache, amaurosis fugax, motor weakness, sensory defi cit, vertigo/spinning sensation, gait abnormalities, or tremors. ENT: No hearing loss, otalgia, otorrhea, rhinitis, rhinorrhea, hoarseness, or sore throat. CARDIOVASCULAR: Denies any exertional angina, dyspnea on exertion, orthopnea, paroxysmal nocturnal dyspnea, palpitations, life-threatening arrhythmias, claudication. PULMONARY: Denies any shortness of breath, cough, phlegm/sputum, hemoptysis, pleuritic chest pain. SLEEP: Denies morning headaches, daytime somnolence or napping. Denies difficulty falling asleep, staying asleep, waking from sleep. Denies knowledge of snoring. GASTROINTESTINAL: Abdominal pain Denies any type of dysphagia to either liquids or solids. Denies abdominal pain, nausea, vomiting, pyrosis, early satiety, diarrhea, constipation, or changes in stool consistency or caliber. Denies coffee-ground emesis, hematemesis, hematochezia, or melanotic stools. GENITOURINARY: Denies frequency, urgency, nocturia, hematuria or incontinence (Storage/Irritative symptoms.) Low urinary stream, straining to void, urinary intermittency or hesitancy, splitting of the voiding stream, terminal dribbling. ENDOCRINOLOGIC: Denies polyuria, polydipsia, polyphagia or heat/cold intolerances. HEMATOLOGIC: Denies thrombophilia/previous clots, or coagulopathy/bleeding disorders. ONCOLOGIC: Denies personal history of malignancy. DERMATOLOGIC: Denies rashes or pruritus. PSYCHIATRIC: Denies any suicidal or homicidal ideation. Denies hallucinations. PHYSICAL EXAM GENERAL APPEARANCE: The patient is disoriented x3 NEUROLOGICAL: Cranial nerves II-XII grossly intact. Motor is 5/5 in bilateral upper and lower extremities proximal to distal. No sensory deficits. HEENT: Face is symmetric. Pupils are equal and reactive. Extraocular movements are intact. NECK: Supple. No JVD. No thyromegaly. No submental, submandibular, pre- /postauricular, occipital or supraclavicular lymphadenopathy. CHEST: Normal chest expansion. No Telemetry. LUNGS: Absence of any rales, rhonchi or any wheezing. CARDIOVASCULAR: Regular. S1 and S2 normal. No appreciable rubs, murmurs or gallops. ABDOMEN: Tender to touch in the right upper quadrant. Soft and nondistended. There is no rebound, voluntary guarding, or rigidity. : Deferred. No Bernal. EXTREMITIES: Non-edematous and not cyanotic. No clubbing. Good capillary refill. SKIN: Stage II sacral ulcer Vital Signs (last 8hr) Date Time Temp Pulse Resp B/P (MAP) Pulse Ox O2 Delivery O2 Flow Rate FiO2 10/09/25 15:30 64 18 135/57 92 Room Air 10/09/25 15:00 71 18 131/72 92 Room Air 10/09/25 14:50 66 18 108/60 92 10/09/25 14:45 66 18 87/46 92 Room Air 10/09/25 14:35 61 18 91/44 91 Room Air 10/09/25 14:31 98.1 67 18 103/49 93 Room Air 10/09/25 14:05 98.1 67 18 103/49 93 Room Air 10/09/25 12:30 99.0 67 18 115/50 93 Room Air 10/09/25 10:15 94 Room Air* 0 21 LABS: Laboratory: Test 10/09/25 03:42 Range/Units White Blood Count 21.2 H 4.8-10.8 K/uL Red Blood Count 3.73 L 4.00-5.50 MIL/uL Hemoglobin 11.3 L 12.0-16.0 g/dL Hematocrit 33.8 L 36-48 % Mean Corpuscular Volume 90.6 79-99 fL Mean Corpuscular Hemoglobin 30.3 27.0-33.0 pg Mean Corpuscular Hemoglobin Concent 33.4 32.0-36.0 g/dL Red Cell Distribution Width 14.0 11.0-15.5 % Platelet Count 279 130-400 K/uL Mean Platelet Volume 9.7 7.5-10.5 fL Nucleated Red Blood Cells 0.0 0.0-0.19 % Sodium Level 139 136-145 mmol/L Potassium Level 3.1 L 3.5-5.1 mmol/L Chloride Level 105 101-111 mmol/L Carbon Dioxide Level 25 21-32 mmol/L Blood Urea Nitrogen 11 7-18 mg/dL Creatinine 0.7 0.5-1.0 mg/dL Glomerular Filtration Rate Calc 90 >90 mL/min Random Glucose 95 70-105 mg/dL Total Calcium 7.8 L 8.5-10.1 mg/dL Phosphorus Level 2.8 2.5-4.9 mg/dL Magnesium Level 1.90 1.80-2.40 mg/dL Current Medications Medications (Trade) Dose Ordered Sig/Juliane Route PRN Reason Start Time Stop Time Status Last Admin Dose Admin Acetaminophen (acetaMINOPHEN 1,000MG/100ML) 1,000 mg ONCE PRN IVPB PAIN LEVEL 1 TO 6 10/08/25 17:30 10/08/25 18:30 DC 10/08/25 18:26 1,000 MG Ceftriaxone Sodium (ROCEphine 1G INJ) 1 gm BID IV 10/05/25 21:00 10/15/25 20:59 10/09/25 10:15 1 GM Docusate Sodium (COLace 100MG CAP) 100 mg BID PO 10/05/25 21:00 11/04/25 20:59 10/08/25 10:50 100 MG Donepezil HCl (ARIcept 5MG TAB) 5 mg DAILY PO 10/06/25 09:00 11/05/25 08:59 10/08/25 10:50 5 MG Fluoxetine HCl (FLUoxetine HCL 20 MG CAPSULE) 20 mg DAILY PO 10/06/25 09:00 11/05/25 08:59 10/08/25 10:50 20 MG Folic Acid (FOLic ACID 1 MG TABLET) 1 mg DAILY PO 10/06/25 09:00 11/05/25 08:59 10/08/25 10:50 1 MG Home Med (Home Medication) BID PO 10/05/25 21:00 11/04/25 20:59 Hydroxyzine HCl (ATArax 10MG TAB) 50 mg [id number] PRN PO ANXIETY/AGITATION 10/05/25 11:00 10/06/25 09:19 DC Hydroxyzine HCl (ATArax 25MG TAB) 50 mg Q12H PRN PO ANXIETY/AGITATION 10/06/25 09:30 11/04/25 10:59 Lactated Ringer's 1,000 ml @ 50 mls/hr Q20H IV 10/09/25 00:00 11/08/25 00:00 10/08/25 23:57 50 MLS/HR Lactated Ringer's 1,000 ml @ 75 mls/hr [id number] IV 10/05/25 05:30 10/05/25 12:17 DC Magnesium Sulfate 50 ml @ 0 mls/hr PROTOCOL PRN IV OTHER [SEE ORDER COMMENTS] 10/05/25 05:30 11/04/25 05:29 Metronidazole/ Sodium Chloride (flaGYL) 500 mg Q8H IV 10/06/25 12:30 10/16/25 12:29 10/09/25 15:25 500 MG Mirtazapine (REMeron 15 MG TAB) 7.5 mg HS PO 10/05/25 21:00 11/04/25 20:59 10/08/25 21:18 7.5 MG Multivitamins/ Minerals 10 ml/ Folic Acid 1 mg/ Thiamine HCl 100 mg/Sodium Chloride 1,010 ml @ 50 mls/hr DAILY IV 10/05/25 12:00 10/08/25 05:11 DC 10/06/25 12:05 50 MLS/HR Nystatin (NystOP 15 GM POWDER) apply to sacrum BID TP 10/05/25 21:00 11/04/25 20:59 10/09/25 10:15 1 APPL Pantoprazole Sodium (PROTonix 40MG INJ) 40 mg DAILY IVP 10/07/25 09:00 11/06/25 08:59 10/09/25 10:15 40 MG Potassium Chloride/Sodium Chloride 1,000 ml @ 100 mls/hr Q10H IV 10/05/25 03:00 10/05/25 03:35 DC Potassium Chloride 100 ml @ 50 mls/hr AD PRN IV POTASSIUM PROTOCOL 10/05/25 05:30 11/04/25 05:29 10/09/25 06:13 50 MLS/HR Potassium Phos/ Sodium Phos (PHOS-NaK PACKET 1 EACH) 1 packet TID PO 10/08/25 14:00 11/07/25 13:59 10/09/25 15:24 1 PACKET Wound Care/ Dressing Products (Venelex Ointment) apply to sacrum BID TP 10/05/25 21:00 11/04/25 20:59 10/09/25 10:16 1 GM DIAGNOSTICS / RADIOLOGY: [ ] ASSESSMENT: Failure to thrive POA Advanced dementia POA Acute complicated cystitis POA Incontinence of bladder and bowel POA Leukocytosis WBC 13.7 POA Acute cholecystitis Uncontrolled hypertension POA hypokalemia POA Hypophosphatemia Uncontrolled diabetes mellitus type 2 with hypoglycemia POA Hyperlipidemia POA Coronary Artery Disease POA PLAN: Failure to thrive POA Advanced dementia POA On admission she is malnourished, drowsy and confused. Her BMI is 16. A bedside swallow study was done and she failed it and she is on NPO. Banana bag was ordered. We ordered PPN. We discussed with about hospice and he agreed to it. So we placed a consult cyanide case hardener for hospice and feeding tube. Case management cancelled the order for hospice as the spouse had a change of heart and wants to pursuit of health and nutrition. We consulted GI for PEG tube placement. She underwent PEG tube placement today. She is receiving tube feeding through the PEG tube. She is able to tolerate her feeds. Acute complicated cystitis POA Incontinence of bladder and bowel POA Leukocytosis WBC 13.7 POA Her urinalysis showed evidence of UTI. Urine culture showed Proteus which is pansensitive. She is on ceftriaxone (day 6). Acute cholecystitis Complained of abdominal pain at the time of admission. So we did a CT scan of the abdomen and it showed acute cholecystitis. Added metronidazole (day 5). We consulted with General surgery and they recommended HIDA scan, ultrasound of right upper quadrant. Also recommended cardiac clearance for surgery. So we placed a consult for Cardiology but we cancelled the clearance for surgery as she is poor candidate for surgery . HIDA scan showed acute cholecystitis. Ultrasound of abdomen showed acute calculous cholecystitis. She underwent cholecystostomy tube placement by IR today. Uncontrolled hypertension POA Today her blood pressure is 135/57. Will monitor her blood pressure. hypokalemia POA Today her blood work show that her potassium level is 3.1. We replaced it by giving KCl. Will repeat the labs tomorrow. Hypophosphatemia Her phosphorus level is 2.8. We replaced it by giving Phos- NaK packet TID through tube feeds. We will repeat the labs tomorrow. Uncontrolled diabetes mellitus type 2 with hypoglycemia POA Today her blood glucose level is 95. We will repeat her labs tomorrow. DVT prophylaxis with SCD. GI prophylaxis with pantoprazole. She is on tube feeding. ATTESTATION BY PHYSICIAN I have seen and examined the patient. I reviewed the documentation, medical decision making, and treatment plan as noted by the resident physician above. I agree with the findings and plan of care. ABEBA HERRERA MD, AKSHAY MD Oct 09, 2025 16:33
--- NOTE | 2025-10-09 18:30 | NUR ---
TUBE FEEDING RATE INCREASE INCREASED RATE TO 30 ML/HR. PATIENT TOLERATING FEEDING. NO SIGNS OF PAIN OR DISCOMFORT NOTED.
--- NOTE | 2025-10-09 19:30 | PN ---
GASTROENTEROLOGY PROGRESS NOTE Date of Visit: Oct 09, 2025 Time of Visit: 19:30 Events / Notes: [ ] Review of Systems: CONSTITUTIONAL: No malaise or change in sensation of wellbeing. ENMT: No rhinorrhea, otorrhea, sinus pain, ear ache. CARDIOVASCULAR: No angina, palpitations, orthopnea or paroxysmal dyspnea. RESPIRATORY: No SOB. GASTROINTESTINAL: No abdominal pain, nausea, vomiting, diarrhea, hematemesis, melena or change in the patient's habitual bowel movements consistency/number. GENITOURINARY: No dysuria, hematuria or change in bladder continence. MUSCULOSKELETAL: No new muscle pain or decrease in muscular strength. No new joint swelling, redness or tenderness. SKIN: No new rash. Physical Exam: GEN: Awake, alert, oriented in person, time and place, and in no acute distress. HEENT: No sinus tenderness. Tympanic membranes were not examined. No rhinorrhea. Oral pharyngeal mucosa is pink, moist and within normal limits. Neck is supple with no cervical lymphadenopathy, thyromegaly or JVD. CHEST: Inspection, palpation and percussion of the chest were unremarkable. Lung auscultation revealed normal breath sounds bilaterally. CARDIAC: PMI is within normal limits. Heart sounds are regular. Normal S1, S2. No gallop or murmur. ABD: Soft, non-tender and not distended. No peritoneal signs on palpation. No organomegaly. Normal bowel sounds. EXT: No cyanosis or clubbing. No edema. SKIN: Intact. No rashes. JOINTS: No evidence of synovitis or acute arthritis. NEURO: Alert and oriented to name, place and person. Cranial nerve examination is unremarkable. No focal motor deficits. Normal speech. Gait is normal. Strength is normal. Vital Signs (last 8hr) Date Time Temp Pulse Resp B/P (MAP) Pulse Ox O2 Delivery O2 Flow Rate FiO2 10/09/25 16:24 71 18 135/57 91 Room Air 10/09/25 15:30 64 18 135/57 92 Room Air 10/09/25 15:00 71 18 131/72 92 Room Air 10/09/25 14:50 66 18 108/60 92 10/09/25 14:45 66 18 87/46 92 Room Air 10/09/25 14:35 61 18 91/44 91 Room Air 10/09/25 14:31 98.1 67 18 103/49 93 Room Air 10/09/25 14:05 98.1 67 18 103/49 93 Room Air 10/09/25 12:30 99.0 67 18 115/50 93 Room Air Laboratory: [ ] Laboratory: Test 10/09/25 03:42 Range/Units White Blood Count 21.2 H 4.8-10.8 K/uL Red Blood Count 3.73 L 4.00-5.50 MIL/uL Hemoglobin 11.3 L 12.0-16.0 g/dL Hematocrit 33.8 L 36-48 % Mean Corpuscular Volume 90.6 79-99 fL Mean Corpuscular Hemoglobin 30.3 27.0-33.0 pg Mean Corpuscular Hemoglobin Concent 33.4 32.0-36.0 g/dL Red Cell Distribution Width 14.0 11.0-15.5 % Platelet Count 279 130-400 K/uL Mean Platelet Volume 9.7 7.5-10.5 fL Nucleated Red Blood Cells 0.0 0.0-0.19 % Sodium Level 139 136-145 mmol/L Potassium Level 3.1 L 3.5-5.1 mmol/L Chloride Level 105 101-111 mmol/L Carbon Dioxide Level 25 21-32 mmol/L Blood Urea Nitrogen 11 7-18 mg/dL Creatinine 0.7 0.5-1.0 mg/dL Glomerular Filtration Rate Calc 90 >90 mL/min Random Glucose 95 70-105 mg/dL Total Calcium 7.8 L 8.5-10.1 mg/dL Phosphorus Level 2.8 2.5-4.9 mg/dL Magnesium Level 1.90 1.80-2.40 mg/dL Current Medications Medications (Trade) Dose Ordered Sig/Juliane Route PRN Reason Start Time Stop Time Status Last Admin Dose Admin Acetaminophen (acetaMINOPHEN 1,000MG/100ML) 1,000 mg ONCE PRN IVPB PAIN LEVEL 1 TO 6 10/08/25 17:30 10/08/25 18:30 DC 10/08/25 18:26 1,000 MG Ceftriaxone Sodium (ROCEphine 1G INJ) 1 gm BID IV 10/05/25 21:00 10/15/25 20:59 10/09/25 10:15 1 GM Docusate Sodium (COLace 100MG CAP) 100 mg BID PO 10/05/25 21:00 11/04/25 20:59 12/4/25 10:50 100 MG Donepezil HCl (ARIcept 5MG TAB) 5 mg DAILY PO 10/06/25 09:00 11/05/25 08:59 10/08/25 10:50 5 MG Fluoxetine HCl (FLUoxetine HCL 20 MG CAPSULE) 20 mg DAILY PO 10/06/25 09:00 11/05/25 08:59 10/08/25 10:50 20 MG Folic Acid (FOLic ACID 1 MG TABLET) 1 mg DAILY PO 10/06/25 09:00 11/05/25 08:59 10/08/25 10:50 1 MG Home Med (Home Medication) BID PO 10/05/25 21:00 11/04/25 20:59 Hydroxyzine HCl (ATArax 10MG TAB) 50 mg [id number] PRN PO ANXIETY/AGITATION 10/05/25 11:00 10/06/25 09:19 DC Hydroxyzine HCl (ATArax 25MG TAB) 50 mg Q12H PRN PO ANXIETY/AGITATION 10/06/25 09:30 11/04/25 10:59 Lactated Ringer's 1,000 ml @ 50 mls/hr Q20H IV 10/09/25 00:00 11/08/25 00:00 10/08/25 23:57 50 MLS/HR Lactated Ringer's 1,000 ml @ 75 mls/hr [id number] IV 10/05/25 05:30 10/05/25 12:17 DC Magnesium Sulfate 50 ml @ 0 mls/hr PROTOCOL PRN IV OTHER [SEE ORDER COMMENTS] 10/05/25 05:30 11/04/25 05:29 Metronidazole/ Sodium Chloride (flaGYL) 500 mg Q8H IV 10/06/25 12:30 10/16/25 12:29 10/09/25 15:25 500 MG Mirtazapine (REMeron 15 MG TAB) 7.5 mg HS PO 10/05/25 21:00 11/04/25 20:59 10/08/25 21:18 7.5 MG Multivitamins/ Minerals 10 ml/ Folic Acid 1 mg/ Thiamine HCl 100 mg/Sodium Chloride 1,010 ml @ 50 mls/hr DAILY IV 10/05/25 12:00 10/08/25 05:11 DC 10/06/25 12:05 50 MLS/HR Nystatin (NystOP 15 GM POWDER) apply to sacrum BID TP 10/05/25 21:00 11/04/25 20:59 10/09/25 10:15 1 APPL Pantoprazole Sodium (PROTonix 40MG INJ) 40 mg DAILY IVP 10/07/25 09:00 11/06/25 08:59 10/09/25 10:15 40 MG Potassium Chloride/Sodium Chloride 1,000 ml @ 100 mls/hr Q10H IV 10/05/25 03:00 10/05/25 03:35 DC Potassium Chloride 100 ml @ 50 mls/hr AD PRN IV POTASSIUM PROTOCOL 10/05/25 05:30 11/04/25 05:29 10/09/25 06:13 50 MLS/HR Potassium Phos/ Sodium Phos (PHOS-NaK PACKET 1 EACH) 1 packet TID PO 10/08/25 14:00 11/07/25 13:59 10/09/25 15:24 1 PACKET Wound Care/ Dressing Products (Venelex Ointment) apply to sacrum BID TP 10/05/25 21:00 11/04/25 20:59 10/09/25 10:16 1 GM Diagnostics / Radiology: [COPY/PASTE HERE IF NO REPORTS PLEASE DELETE SECTION] Assessment: Oropharyngeal dysphagia Feeding difficulties Plan: JONN QUEZADA [employer] Oct 09, 2025 19:30
--- NOTE | 2025-10-09 22:55 | CCATH ---
PROCEDURE: Ultrasound fluoroscopy guided percutaneous placement of an 8.5-Z[place]ian cholecystotomy tube. DESCRIPTION OF PROCEDURE: The right side of the abdomen was prepped and draped in the usual sterile technique. Under ultrasound guidance, using a Chiba needle with 1% Xylocaine given for local anesthetic, a Chiba needle was introduced into the gallbladder. An angiographic wire was placed. This was exchanged and a tract was dilated with an 8-Z[place]ian dilator. 8.5-[place]ian multipurpose drainage catheter was placed into the gallbladder lumen, which appears to be in satisfactory position. Cholecystogram was performed. The study demonstrated multiple defects in the gallbladder lumen suggesting of multiple large gallstones. The catheter was secured with 3-0 silk suture and connected to a biliary bag for gravity drainage. IMPRESSION: Placement of an 8.5-[place]ian cholecystotomy catheter which appears to be in satisfactory position. TID: [id number] RECEIPT: [id number]
[2025-10-10] VITALS (7 sets, daily range): BP systolic 104–133; BP diastolic 55–75; PULSE 71–86; RESP 16–18; TEMP 97.9–98.7; O2SAT 97
[2025-10-10 04:48] LABS: NUCLEATED RED BLOOD CELLS 0.0 % (0.0-0.19); PLATELET COUNT (AUTO) 299.0 K/uL (130-400); RED BLOOD CELL COUNT(AUTO) 3.97 MIL/uL (4.00-5.50); RED CELL DISTRIBUTION WIDTH 14.3 % (11.0-15.5); WHITE BLOOD COUNT (AUTO) 16.6 K/uL (4.8-10.8)
[2025-10-10 05:00] LABS: CREATININE 0.7 mg/dL (0.5-1.0); GLOMERULAR FILTR. RATE CALC 90.0 mL/min (>90); GLUCOSE,RANDOM 119.0 mg/dL (70-105); PHOSPHORUS 3.1 mg/dL (2.5-4.9); SODIUM SERUM 141.0 mmol/L (136-145); UREA NITROGEN, BLOOD 12.0 mg/dL (7-18)
--- NOTE | 2025-10-10 10:10 | NUR ---
MEDICATIONS ADMINISTERED. 45 MLS RESIDUALS NOTED AND RETURNED TO PATIENT.
--- NOTE | 2025-10-10 14:16 | NUR ---
5 MLS OF RESIDUALS NOTED AND RETURNED TO PATIENT. 200 MLS FLUSH ADMINISTERED VIA PEG TUBE. 45 MLS OF AIR REMOVED FROM PATIENT. PT TOLERATED WELL.
--- NOTE | 2025-10-10 14:52 | PN ---
This is a 75-year-old female with concerns of acute cholecystitis status post cholecystostomy tube placement Interval history: This 75-year-old female seen in her room resting Patient with a cholecystostomy tube placed yesterday WBCs trending down Patient tolerating diet No other acute events reported at this time Physical exam General: Awake alert and oriented Heart: Regular rate and rhythm} Lungs: Clear to auscultation no distress Abdomen: [Soft, nontender, nondistended Cholecystostomy tube in place Assessment : This is a 75-year-old female status post cholecystostomy tube placement by IR for cholecystitis Plan: From surgical standpoint patient continue with current medical management Patient is cleared for discharge once appropriate antibiotics scheduled Patient will need to follow up in 5-6 weeks with a our office for re-evaluation and potential cholecystectomy Nursing report any further acute events and Dr. Lima to be updated on patient's status Surgical case has been discussed with my supervising physician in the above plan was formulated and agreed upon We appreciate the hospitalist team for us to participate in patient's care. Greater than 45 minutes of time spent patient, reviewing chart, working on documentation Vitals/Labs Vital Signs Date Time Temp Pulse Resp B/P (MAP) Pulse Ox O2 Delivery O2 Flow Rate FiO2 10/10/25 12:30 98.6 86 18 133/59 88 Room Air 10/10/25 08:57 0 21 Laboratory Tests 10/10/25 04:14 Medications Current Medications Haloperidol Lactate 2 mg ONCE ONCE IM Last administered on 10/05/25at 03:33; Start 10/05/25 at 03:00; Stop 10/05/25 at 03:08; Status DC Potassium Chloride/Sodium Chloride 1,000 ml @ 100 mls/hr Q10H IV; Start 10/05/25 at 03:00; Stop 10/05/25 at 03:35; Status DC Lorazepam 1 mg ONCE ONCE IVP Last administered on 10/05/25at 03:33; Start 10/05/25 at 03:00; Stop 10/05/25 at 03:08; Status DC Potassium Chloride/Sodium Chloride 1,000 ml @ 500 mls/hr Q2H ONCE IV Last administered on 10/05/25at 05:01; Start 10/05/25 at 04:00; Stop 10/05/25 at 05:59; Status DC Ceftriaxone Sodium 1 gm ONCE ONCE IVPB Last administered on 10/05/25at 04:58; Start 10/05/25 at 05:00; Stop 10/05/25 at 05:01; Status DC Ceftriaxone Sodium 1 gm BID IV Last administered on 10/10/25at 09:50; Start 10/05/25 at 21:00; Stop 10/15/25 at 20:59 Lactated Ringer's 1,000 ml @ 75 mls/hr [id number] IV; Start 10/05/25 at 05:30; Stop 10/05/25 at 12:17; Status DC Magnesium Sulfate 50 ml @ 0 mls/hr PROTOCOL PRN IV; Start 10/05/25 at 05:30; Stop 11/04/25 at 05:29 Potassium Chloride 100 ml @ 50 mls/hr AD PRN IV Last administered on 10/10/25at 09:58; Start 10/05/25 at 05:30; Stop 11/04/25 at 05:29 Docusate Sodium 100 mg BID PO Last administered on 10/10/25at 09:49; Start 10/05/25 at 21:00; Stop 11/04/25 at 20:59 Donepezil HCl 5 mg DAILY PO Last administered on 10/10/25at 09:50; Start 10/06/25 at 09:00; Stop 11/05/25 at 08:59 Fluoxetine HCl 20 mg DAILY PO Last administered on 10/10/25at 09:50; Start 10/06/25 at 09:00; Stop 11/05/25 at 08:59 Folic Acid 1 mg DAILY PO Last administered on 10/10/25at 09:50; Start 10/06/25 at 09:00; Stop 11/05/25 at 08:59 Hydroxyzine HCl 50 mg [id number] PRN PO; Start 10/05/25 at 11:00; Stop 10/06/25 at 09:19; Status DC Home Med BID PO; Start 10/05/25 at 21:00; Stop 11/04/25 at 20:59 Mirtazapine 7.5 mg HS PO Last administered on 10/09/25at 23:09; Start 10/05/25 at 21:00; Stop 11/04/25 at 20:59 Potassium Chloride 100 ml @ 50 mls/hr ONCE ONCE IV Last administered on 10/05/25at 11:34; Start 10/05/25 at 11:00; Stop 10/05/25 at 12:59; Status DC Potassium Chloride 100 ml @ 50 mls/hr ONCE ONCE IV Last administered on 10/05/25at 16:37; Start 10/05/25 at 16:00; Stop 10/05/25 at 17:59; Status DC Multivitamins/ Minerals 10 ml/ Folic Acid 1 mg/ Thiamine HCl 100 mg/Sodium Chloride 1,010 ml @ 50 mls/hr DAILY IV Last administered on 10/06/25at 12:05; Start 10/05/25 at 12:00; Stop 10/08/25 at 05:11; Status DC Wound Care/ Dressing Products apply to sacrum BID TP Last administered on 10/10/25at 09:50; Start 10/05/25 at 21:00; Stop 11/04/25 at 20:59 Nystatin apply to sacrum BID TP Last administered on 10/10/25at 09:51; Start 10/05/25 at 21:00; Stop 11/04/25 at 20:59 Hydroxyzine HCl 50 mg Q12H PRN PO; Start 10/06/25 at 09:30; Stop 11/04/25 at 10:59 Metronidazole/ Sodium Chloride 500 mg Q8H IV Last administered on 10/10/25at 06:29; Start 10/06/25 at 12:30; Stop 10/16/25 at 12:29 Pantoprazole Sodium 40 mg DAILY IVP Last administered on 10/10/25at 09:50; Start 10/07/25 at 09:00; Stop 11/06/25 at 08:59 Multivitamins/ Minerals 10 ml/ Chromium/Copper/ Manganese/Zinc 3 ml/Amino Acids/ Electrolytes/ Dextrose 2,000 ml @ 80 mls/hr ONCE ONCE IV Last administered on 10/07/25at 12:23; Start 10/07/25 at 08:00; Stop 10/08/25 at 08:59; Status DC Cefazolin Sodium 1 gm STK-MED ONCE .ROUTE; Start 10/07/25 at 09:26; Stop 10/07/25 at 09:26; Status DC Cefazolin Sodium 1 gm STAT ONCE IVPB; Start 10/07/25 at 10:00; Stop 10/07/25 at 10:01; Status DC Propofol 200 mg STK-MED ONCE IV; Start 10/07/25 at 09:42; Stop 10/07/25 at 09:42; Status DC Lidocaine HCl 20 ml STK-MED ONCE .ROUTE; Start 10/07/25 at 09:42; Stop 10/07/25 at 09:42; Status DC Potassium Phos/ Sodium Phos 1 packet TID PO Last administered on 10/10/25at 14:05; Start 10/08/25 at 14:00; Stop 11/07/25 at 13:59 Lactated Ringer's 1,000 ml @ 50 mls/hr Q20H IV Last administered on 10/08/25at 23:57; Start 10/09/25 at 00:00; Stop 11/08/25 at 00:00 Acetaminophen 1,000 mg ONCE PRN IVPB Last administered on 10/08/25at 18:26; Start 10/08/25 at 17:30; Stop 10/08/25 at 18:30; Status DC Fentanyl Citrate 100 mcg STK-MED ONCE .ROUTE; Start 10/09/25 at 13:14; Stop 10/09/25 at 13:14; Status DC Midazolam HCl 2 mg STK-MED ONCE .ROUTE; Start 10/09/25 at 13:14; Stop 10/09/25 at 13:14; Status DC Lidocaine HCl 50 ml STK-MED ONCE .ROUTE; Start 10/09/25 at 13:44; Stop 10/09/25 at 13:44; Status DC Iohexol 50 ml STK-MED ONCE IV; Start 10/09/25 at 13:44; Stop 10/09/25 at 13:44; Status DC Heparin Sodium/ Sodium Chloride 500 ml @ As Directed STK-MED ONCE IV; Start 10/09/25 at 13:44; Stop 10/09/25 at 13:44; Status DC LAQUITA CARTER Jr. PAC Oct 10, 2025 14:52
--- NOTE | 2025-10-10 17:52 | PN ---
[facility] PROGRESS NOTE Date of Service: Oct 10, 2025 Time of Service: 17:40 SUBJECTIVE: Patient is 75 years old female with a past medical history of dementia, hypertension, hyperlipidemia, Coronary Artery Disease, who came to emergency department with a complaint of stomach pain and vomiting. Due to advanced dementia family members/ at the bedside was able to give detailed info rmation. stated that since yesterday in the evening patient has been having stomach pain and was vomiting x2. Since she never complains of pain he decided to call 911 and bring her to the hospital for further evaluation/recommendations. Most recent vital signs temperature 98.1 pulse 63 respiration 18 blood pressure 124/67 patient is on room air satting 96%. WBc 13.6 hemoglobin 12.4 hematocrit 38.2 platelets 363] Urinalysis positive for leukocytosis patient was placed on Rocephin. Sodium 137 potassium 3.1 CO2 27 BUN 12 creatinine one GFR 58 glucose 159 C chest x-ray negative. The patient is admitted to the hospital for further management. 10/06/2025: Patient is seen and evaluated in the room 402. She is confused. She has no symptoms today. Today her vitals are in the normal range. Her labs are normal except for WBC 19.9, hemoglobin 11.9, potassium 3.2, glucose 113, TSH 4 .32, free T3 1.55. Urine culture showed Gram-negative rods but identification and sensitivity is pending. CT abdomen and pelvis showed acute cholecystitis with gallstones and a severely distended gallbladder. We consulted general surgery and they recommended US abdominal RUQ, HIDA scan and cardiac clearance. She failed her bedside swallow study so she is NPO and we ordered PPN. We spoke with her about hospice and he agreed to it. So we placed a consult case filler for hospice and feeding tube. Case management cancelled the order for hospice as the spouse had a change of heart and wants to pursuit of health and nutrition. We consulted GI for PEG tube placement. 10/07/2025: Patient is seen and evaluated in the room 402. She is sleeping. Her says that she is much better when compared to yesterday. Her vitals are in the normal range. Her labs are normal except for WBC is 22.5, potassium is 3.4. She underwent a PEG tube placement today. Her US abdomen showed acute calculus cholecystitis and HIDA showed the same. We cancelled the cardiac consult. We consulted IR for the placement of cholecystostomy tube but they couldn't do it today. They deferred the procedure to Sunday. The nurse told that she will start feeding through PEG tube from today at 4pm. 10/08/2025: Patient is seen and evaluated in the room 402. Her said that she is hungry and thirsty. She is receiving tube feeds through the PEG tube. On examination her abdomen is tender to touch in the right upper quadrant. Her vital signs are in the normal range. Her labs are normal except for WBC 25.2, potassium 2.7, glucose 116, phosphorus 2.3. She is receiving feeding through the PEG tube. Patient is tolerating tube feeding. As her phosphorus level is low and we added phos-NaK packet three times a day. We are waiting for the placement of cholecystostomy tube by IR which is to be done tomorrow. 10/09/2025: Patient is seen and evaluated in the room 402. Her is saying that she woke up once and most of the time she is sleeping. She complained of abdominal pain. Her abdomen is tender to touch. Vital signs are in the normal range. Labs are normal except for WBC 21.2, hemoglobin 11.3, potassium 3.1. Overnight her tube feedings as stopped and she was kept NPO for the procedure. Today we added lactated ringer and IV Tylenol for pain. She underwent cholecystostomy tube placement by IR today. Bile culture with a Gram stain is ordered today by IR. The nurse told me that she will be resuming the tube feeding today. 10/10/2025: She was evaluated at the bedside this morning. No overnight event. She is AAO x3. She is hemodynamically stable. Labs remarkable for WBC 16.6, potassium 2.9, bicarbonate 2, urine culture growing Proteus mirabilis. She has a got cholecystostomy tube for acute cholecystitis and a PEG tube. She is currently on Rocephin and metronidazole. Bile culture did not grow any organism in 16 to 23 hour. Tube feeding as per goal. She is accepted to [facility] [place]. Rest of the plan as discussed below. REVIEW OF SYSTEMS CONSTITUTIONAL: hungry and thirsty Denies fevers, chills, or night sweats. No u nintentional weight loss reported. NEUROLOGICAL: Denies headache, amaurosis fugax, motor weakness, sensory deficit, vertigo/spinning sensation, gait abnormalities, or tremors. ENT: No hearing loss, otalgia, otorrhea, rhinitis, rhinorrhea, hoarseness, or sore throat. CARDIOVASCULAR: Denies any exertional angina, dyspnea on exertion, orthopnea, paroxysmal nocturnal dyspnea, palpitations, life-threatening arrhythmias, claudication. PULMONARY: Denies any shortness of breath, cough, phlegm/sputum, hemoptysis, pleuritic chest pain. SLEEP: Denies morning headaches, daytime somnolence or napping. Denies difficulty falling asleep, staying asleep, waking from sleep. Denies knowledge of snoring. GASTROINTESTINAL: Abdominal pain Denies any type of dysphagia to either liquids or solids. Denies abdominal pain, nausea, vomiting, pyrosis, early satiety, diarrhea, constipation, or changes in stool consistency or caliber. Denies coffee-ground emesis, hematemesis, hematochezia, or melanotic stools. GENITOURINARY: Denies frequency, urgency, nocturia, hematuria or incontinence (Storage/Irritative symptoms.) Low urinary stream, straining to void, urinary intermittency or hesitancy, splitting of the voiding stream, terminal dribbling. ENDOCRINOLOGIC: Denies polyuria, polydipsia, polyphagia or heat/cold intolerances. HEMATOLOGIC: Denies thrombophilia/previous clots, or coagulopathy/bleeding disorders. ONCOLOGIC: Denies personal history of malignancy. DERMATOLOGIC: Denies rashes or pruritus. PSYCHIATRIC: Denies any suicidal or homicidal ideation. Denies hallucinations. PHYSICAL EXAM GENERAL APPEARANCE: The patient is disoriented x3 NEUROLOGICAL: Cranial nerves II-XII grossly intact. Motor is 5/5 in bilateral upper and lower extremities proximal to distal. No sensory deficits. HEENT: Face is symmetric. Pupils are equal and reactive. Extraocular movements are intact. NECK: Supple. No JVD. No thyromegaly. No submental, submandibular, pre- /postauricular, occipital or supraclavicular lymphadenopathy. CHEST: Normal chest expansion. No Telemetry. LUNGS: Absence of any rales, rhonchi or any wheezing. CARDIOVASCULAR: Regular. S1 and S2 normal. No appreciable rubs, murmurs or gallops. ABDOMEN: Tender to touch in the right upper quadrant. Soft and nondistended. There is no rebound, voluntary guarding, or rigidity. : Deferred. No Bernal. EXTREMITIES: Non-edematous and not cyanotic. No clubbing. Good capillary refill. SKIN: Stage II sacral ulcer Vital Signs (last 8hr) Date Time Temp Pulse Resp B/P (MAP) Pulse Ox O2 Delivery O2 Flow Rate FiO2 10/10/25 16:00 98.4 81 18 112/55 85 Room Air 10/10/25 12:30 98.6 86 18 133/59 88 Room Air LABS: Laboratory: Test 10/10/25 04:14 Range/Units White Blood Count 16.6 H 4.8-10.8 K/uL Red Blood Count 3.97 L 4.00-5.50 MIL/uL Hemoglobin 12.1 12.0-16.0 g/dL Hematocrit 36.2 36-48 % Mean Corpuscular Volume 91.2 79-99 fL Mean Corpuscular Hemoglobin 30.5 27.0-33.0 pg Mean Corpuscular Hemoglobin Concent 33.4 32.0-36.0 g/dL Red Cell Distribution Width 14.3 11.0-15.5 % Platelet Count 299 130-400 K/uL Mean Platelet Volume 9.9 7.5-10.5 fL Nucleated Red Blood Cells 0.0 0.0-0.19 % Sodium Level 141 136-145 mmol/L Potassium Level 2.9 *L 3.5-5.1 mmol/L Chloride Level 107 101-111 mmol/L Carbon Dioxide Level 28 21-32 mmol/L Blood Urea Nitrogen 12 7-18 mg/dL Creatinine 0.7 0.5-1.0 mg/dL Glomerular Filtration Rate Calc 90 >90 mL/min Random Glucose 119 H 70-105 mg/dL Total Calcium 7.7 L 8.5-10.1 mg/dL Phosphorus Level 3.1 2.5-4.9 mg/dL Magnesium Level 2.00 1.80-2.40 mg/dL Current Medications Medications (Trade) Dose Ordered Sig/Juliane Route PRN Reason Start Time Stop Time Status Last Admin Dose Admin Acetaminophen (acetaMINOPHEN 1,000MG/100ML) 1,000 mg ONCE PRN IVPB PAIN LEVEL 1 TO 6 10/08/25 17:30 10/08/25 18:30 DC 10/08/25 18:26 1,000 MG Ceftriaxone Sodium (ROCEphine 1G INJ) 1 gm BID IV 10/05/25 21:00 10/15/25 20:59 10/10/25 09:50 1 GM Docusate Sodium (COLace 100MG CAP) 100 mg BID PO 10/05/25 21:00 11/04/25 20:59 10/10/25 09:49 100 MG Donepezil HCl (ARIcept 5MG TAB) 5 mg DAILY PO 10/06/25 09:00 11/05/25 08:59 10/10/25 09:50 5 MG Fluoxetine HCl (FLUoxetine HCL 20 MG CAPSULE) 20 mg DAILY PO 10/06/25 09:00 11/05/25 08:59 10/10/25 09:50 20 MG Folic Acid (FOLic ACID 1 MG TABLET) 1 mg DAILY PO 10/06/25 09:00 11/05/25 08:59 10/10/25 09:50 1 MG Home Med (Home Medication) BID PO 10/05/25 21:00 11/04/25 20:59 Hydroxyzine HCl (ATArax 10MG TAB) 50 mg [id number] PRN PO ANXIETY/AGITATION 10/05/25 11:00 10/06/25 09:19 DC Hydroxyzine HCl (ATArax 25MG TAB) 50 mg Q12H PRN PO ANXIETY/AGITATION 10/06/25 09:30 11/04/25 10:59 10/10/25 15:42 50 MG Lactated Ringer's 1,000 ml @ 50 mls/hr Q20H IV 10/09/25 00:00 11/08/25 00:00 10/08/25 23:57 50 MLS/HR Lactated Ringer's 1,000 ml @ 75 mls/hr [id number] IV 10/05/25 05:30 10/05/25 12:17 DC Magnesium Sulfate 50 ml @ 0 mls/hr PROTOCOL PRN IV OTHER [SEE ORDER COMMENTS] 10/05/25 05:30 11/04/25 05:29 Metronidazole/ Sodium Chloride (flaGYL) 500 mg Q8H IV 10/06/25 12:30 10/16/25 12:29 10/10/25 15:43 500 MG Mirtazapine (REMeron 15 MG TAB) 7.5 mg HS PO 10/05/25 21:00 11/04/25 20:59 10/09/25 23:09 7.5 MG Multivitamins/ Minerals 10 ml/ Folic Acid 1 mg/ Thiamine HCl 100 mg/Sodium Chloride 1,010 ml @ 50 mls/hr DAILY IV 10/05/25 12:00 10/08/25 05:11 DC 10/06/25 12:05 50 MLS/HR Nystatin (NystOP 15 GM POWDER) apply to sacrum BID TP 10/05/25 21:00 11/04/25 20:59 10/10/25 09:51 1 APPL Pantoprazole Sodium (PROTonix 40MG INJ) 40 mg DAILY IVP 10/07/25 09:00 11/06/25 08:59 10/10/25 09:50 40 MG Potassium Chloride/Sodium Chloride 1,000 ml @ 100 mls/hr Q10H IV 10/05/25 03:00 10/05/25 03:35 DC Potassium Chloride 100 ml @ 50 mls/hr AD PRN IV POTASSIUM PROTOCOL 10/05/25 05:30 11/04/25 05:29 10/10/25 17:25 50 MLS/HR Potassium Phos/ Sodium Phos (PHOS-NaK PACKET 1 EACH) 1 packet TID PO 10/08/25 14:00 11/07/25 13:59 10/10/25 14:05 1 PACKET Wound Care/ Dressing Products (Venelex Ointment) apply to sacrum BID TP 10/05/25 21:00 11/04/25 20:59 10/10/25 09:50 1 GM DIAGNOSTICS / RADIOLOGY: [ ] ASSESSMENT: Failure to thrive POA Advanced dementia POA Acute complicated cystitis POA Incontinence of bladder and bowel POA Leukocytosis WBC 13.7 POA Acute cholecystitis Uncontrolled hypertension POA hypokalemia POA Hypophosphatemia Uncontrolled diabetes mellitus type 2 with hypoglycemia POA Hyperlipidemia POA Coronary Artery Disease POA PLAN: Failure to thrive POA Advanced dementia POA On admission she is malnourished, drowsy and confused. Her BMI is 16. A bedside swallow study was done and she failed it and she is on NPO. Banana bag was ordered. We ordered PPN. We discussed with about hospice and he agreed to it. So we placed a consult case filler for hospice and feeding tube. Case management cancelled the order for hospice as the spouse had a change of heart and wants to pursuit of health and nutrition. We consulted GI for PEG tube placement. She underwent PEG tube placement yesterday. She is receiving tube feeding through the PEG tube. She is able to tolerate her feeds. Acute complicated cystitis POA Incontinence of bladder and bowel POA Leukocytosis WBC 13.7 POA Her urinalysis showed evidence of UTI. Urine culture showed Proteus which is pansensitive. She is on ceftriaxone (day 7). Acute cholecystitis Complained of abdominal pain at the time of admission. So we did a CT scan of the abdomen and it showed acute cholecystitis. Added metronidazole (day 5). We consulted with General surgery and they recommended HIDA scan, ultrasound of right upper quadrant. Also recommended cardiac clearance for surgery. So we placed a consult for Cardiology but we cancelled the clearance for surgery as she is poor candidate for surgery . HIDA scan showed acute cholecystitis. Ultrasound of abdomen showed acute calculous cholecystitis. She underwent placement for cholecystostomy tube. She will continue on Rocephin and Flagyl for 2 weeks. Uncontrolled hypertension POA Today her blood pressure is 127/63 Will monitor her blood pressure. hypokalemia POA Today her blood work show that her potassium level is 3.1. We replaced it by giving KCl. Will repeat the labs tomorrow. Hypophosphatemia Her phosphorus level is 3.1 We replaced it by giving Phos- NaK packet TID through tube feeds. We will repeat the labs tomorrow. Uncontrolled diabetes mellitus type 2 with hypoglycemia POA Today her blood glucose level is 119 We will repeat her labs tomorrow. DVT prophylaxis with SCD. GI prophylaxis with pantoprazole. She is on tube feeding. ATTESTATION BY PHYSICIAN I have seen and examined the patient. I reviewed the documentation, medical decision making, and treatment plan as noted by the resident physician above. I agree with the findings and plan of care. ABEBA HERRERA MD, SUNIL MD Oct 10, 2025 17:52
[2025-10-10] MEDS: PoTASSium chl 10% ELIXIR 20MEQ 20 MEQ/15 ML UDCUP PO ONE (18:11)
[2025-10-11 04:41] VITALS: BP 137/62; PULSE 74; RESP 19; TEMP 97.8
[2025-10-11 05:54] LABS: IMMATURE GRANULOCYTE ABSOLUTE 0.15 K/uL (0-1); NUCLEATED RED BLOOD CELLS 0.0 % (0.0-0.19); PLATELET COUNT (AUTO) 328 K/uL (130-400); RED BLOOD CELL COUNT(AUTO) 3.80 MIL/uL (4.00-5.50); RED CELL DISTRIBUTION WIDTH 14.6 % (11.0-15.5); WHITE BLOOD COUNT (AUTO) 18.9 K/uL (4.8-10.8)
[2025-10-11 06:11] LABS: CREATININE 0.6 mg/dL (0.5-1.0); GLOMERULAR FILTR. RATE CALC 93.0 mL/min (>90); GLUCOSE,RANDOM 121.0 mg/dL (70-105); SODIUM SERUM 140.0 mmol/L (136-145); UREA NITROGEN, BLOOD 9.0 mg/dL (7-18)
[2025-10-11 07:15] VITALS: O2SAT 97
[2025-10-11 08:00] VITALS: BP 109/50; PULSE 75; RESP 17; TEMP 98.2
[2025-10-11 12:00] VITALS: BP 114/52; PULSE 82; RESP 16; TEMP 98.6
[2025-10-11 16:00] VITALS: BP 127/71; PULSE 78; RESP 16; TEMP 98.4
--- NOTE | 2025-10-11 16:51 | NUR ---
removed sl x2 dressings to rr and lt wrist done cath intact mahendra well dc instructions given to spouse dc papers signed report to [facility] via phone verbal understanding awaiting ems for transport
--- NOTE | 2025-10-11 19:22 | DS ---
Discharge Summary Hospital Course Summary: Patient information: Name: Brannon Dave Date of : 1950 Admission date: 10/05/2025 Attending physician: Dr. Diomedes Vela Admitting diagnosis: Failure to try POA Acute complicated cystitis POA Advanced dementia POA Incontinence of bladder and bowel POA Uncontrolled hypertension POA Hyperlipidemia POA Coronary Artery Disease POA Light imbalance hypokalemia 3.1 POA Uncontrolled diabetes mellitus type 2 with hypoglycemia POA Leukocytosis WBC 13.7 POA Course in hospital: Patient is 75 years old female with a past medical history of dementia, hypertension, hyperlipidemia, Coronary Artery Disease, who came to emergency department with a complaint of stomach pain and vomiting. Due to advanced dementia family members/ at the bedside was able to give detailed information. stated that since yesterday in the evening patient has been having stomach pain and was vomiting x2. Since she never complains of pain he decided to call 911 and bring her to the hospital for further evaluation/recommendations. Most recent vital signs temperature 98.1 pulse 63 respiration 18 blood pressure 124/67 patient is on room air satting 96%. WBc 13.6 hemoglobin 12.4 hematocrit 38.2 platelets 363] Urinalysis positive for leukocytosis patient was placed on Rocephin. Sodium 137 potassium 3.1 CO2 27 BUN 12 creatinine one GFR 58 glucose 159 C chest x-ray negative. The patient was admitted to the hospital for further management. We started her on ceftriaxone. We sent urine for culture and it grew Proteus. As she complained of abdominal pain we ordered acute cholecystitis with gall stones. Abdominal Ultrasound and HIDA scan showed the same. We consulted surgery and the recommended cholesystostomy tube placement as she is not a good candidate for surgery. So she underwent a cholecystostomy tube placed by IR on 10/09/2025. After that her symptoms got resolved. We gave PPN 1 dose and consulted GI for PEG tube placement. She had her PEG tube placed on 10/07/2025. After that she is able to feed through it. She was referred to [facility] where she was accepted. On 10/11/2025 , she has no symptoms, vitals and labs are stable. She is cleared by gastroenterology and general surgery for discharge. She is medically stable and ready for discharge. So we discharged her to [facility]. Manager Coding(s): CONSULTATION REPORT Name: BRANNON DAVE Acct: [id number] MR: [id number] : 1950 Admit Date: 10/05/25 LAQUITA CARTER Jr., PAC, PA [place] [address] [place] [address] CONSULT NOTE: Consulting physician: Dr. Baez Consulting service: General surgery Reason for consultation: Cholecystitis History of present illness: This is a 75-year-old female with a medical history below consulted to surgery after presenting to ED with concerns of abdominal pain associated with vomiting. Patient with significant history of dementia and has been at bedside giving history. Patient is unable to respond to questions but on physical exam reporting upper quadrant pain. Initial imaging performed concerning for cholecystitis however patient is very weak appearing and cachectic. Patient currently on IV fluids and IV antibiotics. WBCs elevated to 19. Patient currently NPO on IV fluids and IV antibiotics Medical history: dementia, hypertension, hyperlipidemia, Coronary Artery Disease Review of systems: General: No Fever, No Chills, No Night Sweats, No Fatigue, No Malaise, No Appetite, No Other HEENT: No Head Aches, No Visual Changes, No Eye Pain, No Ear Pain, No Dysphasia, No Sinus Congestion, No Post Nasal Drip, No Sore Throat, No Other Pulmonary: No Dyspnea, No Cough, No Pleuritic Chest Pain, No Other Cardiovascular: No: Chest Pain, Palpitations, Orthopnea, Paroxysmal No Dyspnea, Edema, Lt Headedness, Other Gastrointestinal: No: Nausea, Vomiting, Diarrhea, Constipation, Melena, Hematochezia, Other Genitourinary: No Dysuria, No Frequency, No Incontinence, No Hematuria, No Retention, No Other Musculoskeletal: No: other, neck pain, shoulder pain, arm pain, back pain, hand pain, leg pain, foot pain Skin: No Urticaria, No Rash, No Other Neurological: No: Weakness, Numbness, Incoordination, Change in speech, Confusion, Seizures, Other Physical exam: General: Disoriented weekend cachectic Heart: [Regular rate and rhythm} Lungs: [Clear to auscultation no distress Abdomen: Right upper quadrant pain Assessment: This is a 75-year-old female with concerns of acute cholecystitis Plan: At this point in time we will order HIDA scan and ultrasound to better assess gallbladder We will also request cardiac clearance Patient may be a poor candidate for surgical intervention if surgery to high- risk patient will likely need cholecystostomy tube Continue with the IV fluids and IV antibiotics Repeat CBC and CMP Surgical case has been discussed with my supervising physician in the above plan was formulated and agreed upon Supervising physicians evaluation the patient be done within next 24 hours We appreciate the hospitalist team for us to participate in patient's care. Greater than 55 minutes of time spent patient, reviewing chart, working on documentation LAQUITA CARTER Jr. PAC Oct 06, 2025 16:39 Electronically Signed by: LAQUITA CARTER Jr., PAC, PA10/06/25 1639 Electronically Co-Signed by: CONSULTATION REPORT Name: BRANNON DAVE Acct: [id number] MR: [id number] : 1950 Admit Date: 10/05/25 JONN QUEZADA [address] [address] GASTROENTEROLOGY CONSULTATION NOTE Date of Consultation: Oct 06, 2025 Time of Consultation: 21:12 History of Present Illness: This is a 75-year-old female with past medical history of dementia, hypertension, hyperlipidemia, CAD who presented due to stomach pain and vomiting. She failed MBSS and PEG tube was recommended. Review of Systems: CONSTITUTIONAL: No malaise or change in sensation of wellbeing. ENMT: No rhinorrhea, otorrhea, sinus pain, ear ache. CARDIOVASCULAR: No angina, palpitations, orthopnea or paroxysmal dyspnea. RESPIRATORY: No SOB. GASTROINTESTINAL: No abdominal pain, nausea, vomiting, diarrhea, hematemesis, melena or change in the patient's habitual bowel movements consistency/number. GENITOURINARY: No dysuria, hematuria or change in bladder continence. MUSCULOSKELETAL: No new muscle pain or decrease in muscular strength. No new joint swelling, redness or tenderness. SKIN: No new rash. Past Medical History: [ ] Past Surgical History: [ ] Past Social History: [ ] Family History: [ ] Coded Allergies: Penicillins (Verified Allergy, 11/20/13) Sulfa (Sulfonamide Antibiotics) (Verified Allergy, 11/20/13) Physical Exam: GEN: Awake, alert, oriented in person, time and place, and in no acute distress. HEENT: No sinus tenderness. Tympanic membranes were not examined. No rhinorrhea. Oral pharyngeal mucosa is pink, moist and within normal limits. Neck is supple with no cervical lymphadenopathy, thyromegaly or JVD. CHEST: Inspection, palpation and percussion of the chest were unremarkable. Lung auscultation revealed normal breath sounds bilaterally. CARDIAC: PMI is within normal limits. Heart sounds are regular. Normal S1, S2. No gallop or murmur. ABD: Soft, non-tender and not distended. No peritoneal signs on palpation. No organomegaly. Normal bowel sounds. EXT: No cyanosis or clubbing. No edema. SKIN: Intact. No rashes. JOINTS: No evidence of synovitis or acute arthritis. NEURO: Alert and oriented to name, place and person. Cranial nerve examination is unremarkable. No focal motor deficits. Normal speech. Gait is normal. Strength is normal. Vital Sign (Last 24 Hours) 10/06/25 10/06/25 08:01 17:05 Temp 98.2 Pulse 68 Resp 18 B/P (MAP) 123/42 Pulse Ox 97 O2 Delivery Room Air O2 Flow Rate 0 FiO2 21 Intake & Output (last 24hrs) 10/05/25 10/05/25 10/06/25 15:00 23:00 07:00 Intake Total 475.0 ml 275.0 ml 50.0 ml Output Total 500 ml 400 ml Balance 475.0 ml -225.0 ml -350.0 ml Laboratory: [ ] Laboratory: Test 10/06/25 03:29 10/06/25 03:28 10/05/25 05:18 10/05/25 01:39 Range/Units Free Thyroxine (T4) Direct 1.28 0.76-1.46 ng/dL Free Triiodothyronine (T3) pg/mL 1.55 L 2.18-3.98 pg/mL White Blood Count 19.9 H 4.8-10.8 K/uL Red Blood Count 3.92 L 4.00-5.50 MIL/uL Hemoglobin 11.9 L 12.0-16.0 g/dL Hematocrit 36.7 36-48 % Mean Corpuscular Volume 93.6 79-99 fL Mean Corpuscular Hemoglobin 30.4 27.0-33.0 pg Mean Corpuscular Hemoglobin Concent 32.4 32.0-36.0 g/dL Red Cell Distribution Width 13.8 11.0-15.5 % Platelet Count 346 130-400 K/uL Mean Platelet Volume 9.1 7.5-10.5 fL Immature Granulocyte % (Auto) 0.8 0-1 % Neutrophils (%) (Auto) 87.0 H 40.0-77.0 % Lymphocytes (%) (Auto) 4.5 L 21.0-51.0 % Monocytes (%) (Auto) 7.5 3.0-13.0 % Eosinophils (%) (Auto) 0.0 0.0-8.0 % Basophils (%) (Auto) 0.2 0.0-5.0 % Neutrophils # (Auto) 17.3 H 1.8-7.7 K/uL Lymphocytes # (Auto) 0.9 L 1.0-4.8 K/uL Monocytes # (Auto) 1.5 H 0.1-1.0 K/uL Eosinophils # (Auto) 0.00 0.00-0.70 K/uL Basophils # (Auto) 0.04 0.00-0.20 K/uL Absolute Immature Granulocyte (auto 0.16 0-1 K/uL Nucleated Red Blood Cells 0.0 0.0-0.19 % White Cell Morphology Comment CONSISTENT W/DIFF Platelet Morphology LARGE PLTS PRESENT Sodium Level 139 136-145 mmol/L Potassium Level 3.2 L 3.5-5.1 mmol/L Chloride Level 104 101-111 mmol/L Carbon Dioxide Level 29 21-32 mmol/L Blood Urea Nitrogen 8 7-18 mg/dL Creatinine 0.7 0.5-1.0 mg/dL Glomerular Filtration Rate Calc 90 >90 mL/min Random Glucose 113 H 70-105 mg/dL Total Calcium 8.4 L 8.5-10.1 mg/dL Magnesium Level 1.90 1.80-2.40 mg/dL Total Bilirubin 0.5 0.2-1.0 mg/dL Aspartate Amino Transf (AST/SGOT) 16 10-37 U/L Alanine Aminotransferase (ALT/SGPT) 15 12-78 U/L Alkaline Phosphatase 97 50-136 U/L Total Protein 7.2 6.0-8.3 g/dL Albumin 2.6 L 3.5-5.0 g/dL Thyroid Stimulating Hormone (TSH) 4.26 H 0.36-3.74 uIU/mL Urine Color LIGHT-YELLOW YELLOW Urine Appearance CLOUDY H CLEAR Urine pH 8.0 5.0-8.0 Urine Specific [place] 1.011 1.001-1.031 Urine Protein NEGATIVE NEGATIVE mg/dL Urine Glucose (UA) 30 H NEGATIVE mg/dL Urine Ketones NEGATIVE NEGATIVE mg/dL Urine Occult Blood SMALL H NEGATIVE Urine Nitrate 1+ H NEGATIVE Urine Bilirubin NEGATIVE NEGATIVE mg/dL Urine Urobilinogen 0.2 0.2-1.0 mg/dL Urine Leukocyte Esterase 500 H NEGATIVE Megan/uL Urine RBC 0-1 0-1 /HPF Urine WBC 6-10 H 0-1 /HPF Urine Squamous Epithelial Cells 0-2 0-2 /HPF Urine Amorphous Crystals (Auto) Moderate H None Seen /LPF Urine Bacteria Many H None Seen /HPF Hemoglobin A1c 5.3 4.0-6.0 % Estimated Average Glucose (eAG) 105 70-126 mg/dL Total Creatine Kinase 59 21-232 U/L Troponin I High Sensitivity 8 4-50 ng/L Current Medications Medications (Trade) Dose Ordered Sig/Juliane Route PRN Reason Start Time Stop Time Status Last Admin Dose Admin Ceftriaxone Sodium (ROCEphine 1G INJ) 1 gm BID IV 10/05/25 21:00 10/15/25 20:59 10/06/25 10:35 1 GM Docusate Sodium (COLace 100MG CAP) 100 mg BID PO 10/05/25 21:00 11/04/25 20:59 Donepezil HCl (ARIcept 5MG TAB) 5 mg DAILY PO 10/06/25 09:00 11/05/25 08:59 Fluoxetine HCl (FLUoxetine HCL 20 MG CAPSULE) 20 mg DAILY PO 10/06/25 09:00 11/05/25 08:59 Folic Acid (FOLic ACID 1 MG TABLET) 1 mg DAILY PO 10/06/25 09:00 11/05/25 08:59 Home Med (Home Medication) BID PO 10/05/25 21:00 11/04/25 20:59 Hydroxyzine HCl (ATArax 10MG TAB) 50 mg [id number] PRN PO ANXIETY/AGITATION 10/05/25 11:00 10/06/25 09:19 DC Hydroxyzine HCl (ATArax 25MG TAB) 50 mg Q12H PRN PO ANXIETY/AGITATION 10/06/25 09:30 11/04/25 10:59 Lactated Ringer's 1,000 ml @ 75 mls/hr [id number] IV 10/05/25 05:30 10/05/25 12:17 DC Magnesium Sulfate 50 ml @ 0 mls/hr PROTOCOL PRN IV OTHER [SEE ORDER COMMENTS] 10/05/25 05:30 11/04/25 05:29 Metronidazole/ Sodium Chloride (flaGYL) 500 mg Q8H IV 10/06/25 12:30 10/16/25 12:29 10/06/25 17:20 500 MG Mirtazapine (REMeron 15 MG TAB) 7.5 mg HS PO 10/05/25 21:00 11/04/25 20:59 Multivitamins/ Minerals 10 ml/ Folic Acid 1 mg/ Thiamine HCl 100 mg/Sodium Chloride 1,010 ml @ 50 mls/hr DAILY IV 10/05/25 12:00 10/08/25 05:11 10/06/25 12:05 50 MLS/HR Nystatin (NystOP 15 GM POWDER) apply to sacrum BID TP 10/05/25 21:00 11/04/25 20:59 10/06/25 10:42 1 APPL Pantoprazole Sodium (PROTonix 40MG INJ) 40 mg DAILY IVP 10/07/25 09:00 11/06/25 08:59 Potassium Chloride/Sodium Chloride 1,000 ml @ 100 mls/hr Q10H IV 10/05/25 03:00 10/05/25 03:35 DC Potassium Chloride 100 ml @ 50 mls/hr AD PRN IV POTASSIUM PROTOCOL 10/05/25 05:30 11/04/25 05:29 10/06/25 05:40 50 MLS/HR Wound Care/ Dressing Products (Venelex Ointment) apply to sacrum BID TP 10/05/25 21:00 11/04/25 20:59 10/06/25 10:42 1 GM Diagnostics / Radiology: [COPY/PASTE HERE IF NO REPORTS PLEASE DELETE SECTION] Assessment: Oropharyngeal dysphagia Feeding difficulties Plan: EGD with PEG in JONN Garcia [employer] Oct 06, 2025 21:12 Electronically Signed by: Electronically Co-Signed by: Procedure(s): [place] [address] [place] [id number] IMAGING REPORT Signed PATIENT: BRANNON DAVE MR#: [id number] : 1950 SEX: F AGE: 75 LOCATION: ED ORDER 8 STATUS: REG ER REPORT#: [id number] SERVICE 7 REASON: CHEST PAIN ORDERING PHYSICIAN: GABRIEL JARRETT MD PROCEDURE: CXR1VW - CHEST 1VW EXAM: CR Chest, 1 View. CLINICAL HISTORY: CHEST PAIN COMPARISON: None provided. FINDINGS: LUNGS: There is no mass, infiltrate, or acute pulmonary abnormality. PLEURAL SPACES: No evidence of pleural effusion or pneumothorax. MEDIASTINUM: Cardiac size and mediastinal contours are within normal limits. Calcified plaque in the aortic arch. BONES: No aggressive appearing osseous lesion seen. IMPRESSION: No acute cardiopulmonary pathology is evident. /[place] DICTATED BY: MARIA ANTONIA SARGENT Jr., MD DATE: 10/05/25329 ELECTRONICALLY SIGNED BY: MARIA ANTONIA SARGENT Jr., MD DATE: 10/05/[address] [id number] IMAGING REPORT Addendum PATIENT: BRANNON DAVE MR#: [id number] : 1950 SEX: F AGE: 75 LOCATION: [facility] ORDER [id number] STATUS: ADM IN REPORT#: [id number] SERVICE 104 REASON: abd pain ORDERING PHYSICIAN: FRANCISCO JAVIER [employer] PROCEDURE: ABD PEL WO - CT ABDOMEN/PELVIS W/O CONTRAST ADDENDUM REPORT ADDENDUM: Results were shared by telephone at 11:10 AM EST on 10-06-[address]ERA,ALILI. /[place] EXAM: CT Abdomen and Pelvis Without IV contrast CLINICAL HISTORY: abd pain TECHNIQUE: Axial computed tomography images of the abdomen and pelvis without intravenous contrast. CONTRAST: No IV contrast. COMPARISON: None provided. FINDINGS: LUNG BASES: Left minimal pleural effusion. Dependent atelectatic changes in the bilateral lower lobes. LIVER: A well-defined hypodense area in the right lobe of the liver measuring 11 x 6.5 mm (series 2; image 15). This may reflect a simple cyst; however, it would be better characterized with ultrasound on a non-emergent basis GALLBLADDER AND BILE DUCTS: Multiple radiolucent gallstones, the largest measuring 12 x 8.1 mm. The gallbladder is severely distended, measuring approximately 11 cm. Mild pericholecystic fat stranding. No abnormal gallbladder wall thickening. No biliary ductal dilatation is evident. PANCREAS: Unremarkable. SPLEEN: Unremarkable. ADRENAL GLANDS: Unremarkable. KIDNEYS, URETERS, AND BLADDER: The kidneys appear within normal limits. There is no hydronephrosis or hydroureter. No urinary calculi are seen. STOMACH AND BOWEL: Colonic diverticulosis with no features of acute diverticulitis. Unremarkable appearance of the stomach and rest of the bowel. No evidence of bowel obstruction. No evidence suggesting enteritis or colitis. APPENDIX: No evidence of acute appendicitis on CT examination. PERITONEUM: No free fluid. No free air. LYMPH NODES: No lymphadenopathy is evident. REPRODUCTIVE: Unremarkable as visualized. VASCULATURE: No evidence of abdominal aortic aneurysm. Mild atherocalcific changes in the abdominal aorta. BONES: No aggressive appearing osseous lesion. No acute osseous pathology is evident. IMPRESSION: Acute cholecystitis with gallstones and a severely distended gallbladder. US correlation is suggested. No urinary calculi. No hydronephrosis. No bowel obstruction or inflammation. Small left pleural effusion. /[place] DICTATED BY: LIZBETH ANDREW MD DATE: 10/06/25 1113 ELECTRONICALLY SIGNED BY: DATE: EXAM: CT Abdomen and Pelvis Without IV contrast CLINICAL HISTORY: abd pain TECHNIQUE: Axial computed tomography images of the abdomen and pelvis without intravenous contrast. CONTRAST: No IV contrast. COMPARISON: None provided. FINDINGS: LUNG BASES: Left minimal pleural effusion. Dependent atelectatic changes in the bilateral lower lobes. LIVER: A well-defined hypodense area in the right lobe of the liver measuring 11 x 6.5 mm (series 2; image 15). This may reflect a simple cyst; however, it would be better characterized with ultrasound on a non-emergent basis GALLBLADDER AND BILE DUCTS: Multiple radiolucent gallstones, the largest measuring 12 x 8.1 mm. The gallbladder is severely distended, measuring approximately 11 cm. Mild pericholecystic fat stranding. No abnormal gallbladder wall thickening. No biliary ductal dilatation is evident. PANCREAS: Unremarkable. SPLEEN: Unremarkable. ADRENAL GLANDS: Unremarkable. KIDNEYS, URETERS, AND BLADDER: The kidneys appear within normal limits. There is no hydronephrosis or hydroureter. No urinary calculi are seen. STOMACH AND BOWEL: Colonic diverticulosis with no features of acute diverticulitis. Unremarkable appearance of the stomach and rest of the bowel. No evidence of bowel obstruction. No evidence suggesting enteritis or colitis. APPENDIX: No evidence of acute appendicitis on CT examination. PERITONEUM: No free fluid. No free air. LYMPH NODES: No lymphadenopathy is evident. REPRODUCTIVE: Unremarkable as visualized. VASCULATURE: No evidence of abdominal aortic aneurysm. Mild atherocalcific changes in the abdominal aorta. BONES: No aggressive appearing osseous lesion. No acute osseous pathology is evident. IMPRESSION: Acute cholecystitis with gallstones and a severely distended gallbladder. US correlation is suggested. No urinary calculi. No hydronephrosis. No bowel obstruction or inflammation. Small left pleural effusion. /[place] DICTATED BY: LIZBETH ANDREW MD DATE: 10/06/25 103 ELECTRONICALLY SIGNED BY: LIZBETH ANDREW MD DATE: 10/06/[address] [address] IMAGING REPORT Signed PATIENT: BRANNON DAVE MR#: [id number] : 1950 SEX: F AGE: 75 LOCATION: [facility] ORDER [id number] STATUS: ADM IN REPORT#: [id number] SERVICE 1636 REASON: cholecystitis ORDERING PHYSICIAN: LAQUITA CARTER Jr. PAC PROCEDURE: ABDRUQLTD - US ABDOMINAL RUQ\LTD STUDY: ULTRASOUND ABDOMEN, RIGHT UPPER QUADRANT LIMITED CLINICAL INFORMATION: Suspected cholecystitis. TECHNIQUE: Targeted transabdominal ultrasound of the right upper quadrant was performed with grayscale and color Doppler imaging. COMPARISON: CT scan of the abdomen and pelvis without contrast from 10/05/2025. FINDINGS: LIVER: Liver measures approximately 12.5 cm in craniocaudal dimension with normal echotexture and contour. No focal hepatic mass is identified. Intrahepatic bile ducts are not dilated. GALL BLADDER: Gallbladder is markedly distended, measuring approximately 11.8 cm in length, with diffuse wall thickening/edema up to approximately 6 mm. Multiple intraluminal gallstones are present with associated layering sludge. Pericholecystic fluid is not clearly described, and sonographic Trent sign is not provided. Overall appearance is concordant with acute cholecystitis in the appropriate clinical setting. BILIARY TREE: Common bile duct measures approximately 4 mm in diameter, within normal limits. No intra- or extrahepatic biliary ductal dilatation is demonstrated. PANCREAS: Visualized portions of the pancreas appear normal in size and echotexture without focal lesion or ductal dilatation. RIGHT KIDNEY: Right kidney measures approximately 9.0 x 3.4 x 4.4 cm with preserved cortical thickness and corticomedullary differentiation. No hydronephrosis, renal calculus, or focal renal mass is demonstrated. AORTA AND IVC: Visualized segments of the aorta and inferior vena cava are normal in caliber and show normal color Doppler flow. OTHER: No significant free fluid is seen in the right upper quadrant. No right upper quadrant mass or collection is identified. IMPRESSION: * Markedly distended gallbladder with diffuse wall thickening (?6 mm), multiple gallstones, and sludge, consistent with acute calculous cholecystitis in the appropriate clinical context. * Common bile duct is normal in caliber (?4 mm) without sonographic evidence of biliary obstruction. * When compared with the CT abdomen and pelvis from 10/05/2025, which demonstrated acute cholecystitis with gallstones and a severely distended gallbladder, the current ultrasound confirms persistent acute cholecystitis. Prompt surgical consultation for cholecystectomy or alternative management is recommended based on overall clinical status. /[place] DICTATED BY: CHERYL DE DIOS MD DATE: 10/06/252003 ELECTRONICALLY SIGNED BY: CHERYL DE DIOS MD DATE: 10/06/252003 [facility] [address] [place] [address] IMAGING REPORT Addendum PATIENT: BRANNON DAVE MR#: [id number] : 1950 SEX: F AGE: 75 LOCATION: [facility] ORDER [id number] STATUS: ADM IN REPORT#: [id number] SERVICE 1800 REASON: cholecystitis ORDERING PHYSICIAN: LAQUITA CARTER Jr. PAC PROCEDURE: HIDAWO - NM HIDA WO EF/CCK ADDENDUM REPORT ADDENDUM: Results were shared by telephone at 10:35 PM EST on 10-06-2025 and acknowledged by the Patient's Nurse Ms. Azra Rosa /[place] EXAM: HIDA scan. INDICATION: Severe RUQ Pain with cholelithiasis. Suspected cholecystitis. REFERENCE EXAMINATION: None. TECHNIQUE: Sequential images of the abdomen were obtained in the anterior projection after IV administration of 7.0 mCi of Tc99m Mebrofenin. FINDINGS: Tracer activity throughout the liver is homogeneous without focal defects. There is prompt excretion of the pharmaceutical into the bile ducts and into the small bowel, without evidence of obstruction. There is no visualization of the gallbladder at the conclusion of the examination. IMPRESSION: Scintigraphic findings are compatible with acute cholecystitis. /[place] DICTATED BY: MARIA ANTONIA SARGENT Jr., MD DATE: 10/06/25 244 ELECTRONICALLY SIGNED BY: DATE: EXAM: HIDA scan. INDICATION: Severe RUQ Pain with cholelithiasis. Suspected cholecystitis. REFERENCE EXAMINATION: None. TECHNIQUE: Sequential images of the abdomen were obtained in the anterior projection after IV administration of 7.0 mCi of Tc99m Mebrofenin. FINDINGS: Tracer activity throughout the liver is homogeneous without focal defects. There is prompt excretion of the pharmaceutical into the bile ducts and into the small bowel, without evidence of obstruction. There is no visualization of the gallbladder at the conclusion of the examination. IMPRESSION: Scintigraphic findings are compatible with acute cholecystitis. /[place] DICTATED BY: MARIA ANTONIA SARGENT Jr., MD DATE: 10/06/252221 ELECTRONICALLY SIGNED BY: MARIA ANTONIA SARGENT Jr., MD DATE: 10/06/252221 CARDIAC CATH REPORT Name: BRANNON DAVE Acct: [id number] MR: [id number] : 1950 Visit Date: 10/05/25 NORBERTO GARCIA MD [facility] [address] [place] [id number] [facility] [address] [place] [address] CARDIAC CATHLAB REPORT Draft PATIENT: BRANNON DAVE MR#: [id number] : 1950 SEX: F AGE: 75 LOCATION: [facility] ROOM/BED: [facility] ORDER DT: ACCESSION#: ORDER#: REPORT#: [id number] REASON: ORDERING PHYSICIAN: PROCEDURE: - PROCEDURE: Ultrasound fluoroscopy guided percutaneous placement of an 8.5-Moroccan cholecystotomy tube. DESCRIPTION OF PROCEDURE: The right side of the abdomen was prepped and draped in the usual sterile technique. Under ultrasound guidance, using a Chiba needle with 1% Xylocaine given for local anesthetic, a Chiba needle was introduced into the gallbladder. An angiographic wire was placed. This was exchanged and a tract was dilated with an 8-Moroccan dilator. 8.5-Moroccan multipurpose drainage catheter was placed into the gallbladder lumen, which appears to be in satisfactory position. Cholecystogram was performed. The study demonstrated multiple defects in the gallbladder lumen suggesting of multiple large gallstones. The catheter was secured with 3-0 silk suture and connected to a biliary bag for gravity drainage. IMPRESSION: Placement of an 8.5-Moroccan cholecystotomy catheter which appears to be in satisfactory position. TID: [id number] RECEIPT: [id number] DICTATED BY: NORBERTO GARCIA MD DATE & TIME: 10/09/25 1229 ELECTRONICALLY SIGNED BY: DATE & TIME: Assessment/Plan: DISCHARGE DIAGNOSIS: Failure to thrive POA Advanced dementia POA Acute complicated cystitis POA Incontinence of bladder and bowel POA Leukocytosis WBC 13.7 POA Acute cholecystitis Uncontrolled hypertension POA hypokalemia POA Hypophosphatemia Uncontrolled diabetes mellitus type 2 with hypoglycemia POA Hyperlipidemia POA Coronary Artery Disease POA ASSESSMENT/PLAN: Failure to thrive POA Advanced dementia POA On admission she is malnourished, drowsy and confused. Her BMI is 16. A bedside swallow study was done and she failed it and she is on NPO. Banana bag was ordered. We ordered PPN. We discussed with about hospice and he agreed to it. So we placed a consult case worker for hospice and feeding tube. Case management cancelled the order for hospice as the spouse had a change of heart and wants to pursuit of health and nutrition. We consulted GI for PEG tube placement. She underwent PEG tube placement 10/07/2025. She is receiving tube feeding through the PEG tube. She is able to tolerate her feeds. She is cleared by gastroenterology for discharge. She is accepted at [facility]. She is medically stable and so we discharged her. Acute complicated cystitis POA Incontinence of bladder and bowel POA Leukocytosis WBC 13.7 POA Her urinalysis showed evidence of UTI. Urine culture showed Proteus which is pansensitive. She is on ceftriaxone (day 8). Acute cholecystitis Complained of abdominal pain at the time of admission. So we did a CT scan of the abdomen and it showed acute cholecystitis. Added metronidazole (day 6). We consulted with General surgery and they recommended HIDA scan, ultrasound of right upper quadrant. Also recommended cardiac clearance for surgery. So we placed a consult for Cardiology but we cancelled the clearance for surgery as she is poor candidate for surgery . HIDA scan showed acute cholecystitis. Ultrasound of abdomen showed acute calculous cholecystitis. She underwent placement for cholecystostomy tube. She will continue on Rocephin and Flagyl for 2 weeks. Uncontrolled hypertension POA Today her blood pressure is 127/71 hypokalemia POA Today her blood work show that her potassium level is 4.1. Hypophosphatemia On 10/10/2025 her phosphorus level is 3.1 We replaced it by giving Phos- NaK packet TID through tube feeds when she was in the hospital. Uncontrolled diabetes mellitus type 2 with hypoglycemia POA Today her blood glucose level is 119 Discharge Instructions: Discharge date: 10/11/2025 Discharge instructions: 1) Follow up with primary care physician within 2 to 3 days after discharge. 2) Follow up with general surgery in 4 weeks after discharge. 3) Continue tube feedings. 4) Continue all medications as prescribed. Do not discontinue or change doses without consulting your PCP. 5) Gradually resume normal activities as tolerated. 6) Continue a balanced diet. 7) Seek immediate medical attention if you experience chest pain, SOB, or severe headache. Discharge to: [facility] facility Condition on discharge: Stable Home Medications: Reported Medications Fluoxetine HCl (Fluoxetine HCl) 10 Mg Tablet, 1 TAB PO DAILY for 30 Days, #30 TAB 0 Refills 10/05/25 Folic Acid (Folic Acid) 0.8 Mg Capsule, 1 MG PO DAILY, CAP 10/05/25 Donepezil HCl (Donepezil HCl) 5 Mg Tablet, 1 TAB PO DAILY for 30 Days, #30 TAB 0 Refills 10/05/25 Mirtazapine (Mirtazapine) 7.5 Mg Tablet, 1 TAB PO HS for 30 Days, #30 TAB 0 Refills 10/05/25 Memantine HCl (Namenda) 5 Mg (28)-10 Mg (21) Tab.ds.pk, 1 TAB PO BID for 28 Days, #49 TAB 0 Refills 10/05/25 Fluoxetine HCl (Fluoxetine HCl) 20 Mg Tablet, 1 TAB PO DAILY for 30 Days, #30 TAB 0 Refills 25 Hydroxyzine HCl (Hydroxyzine HCl) 50 Mg Tablet, 50 MG PO [id number] PRN for ANXIETY/AGITATION, TAB 10/05/25 Docusate Sodium (Docusate Sodium) 100 Mg Capsule, 1 CAP PO BID for constipation for 7 Days, #14 CAP 0 Refills TAKE 1-2 CAPSUELS BY MOUTH DAILY AT NIGHT FOR CONSTIPATION 10/05/25 Continued Medications: Docusate Sodium (Docusate Sodium) 100 Mg Capsule 1 CAP PO BID for constipation for 7 Days, #14 CAP 0 Refills TAKE 1-2 CAPSUELS BY MOUTH DAILY AT NIGHT FOR CONSTIPATION Donepezil HCl (Donepezil HCl) 5 Mg Tablet 1 TAB PO DAILY for 30 Days, #30 TAB 0 Refills Fluoxetine HCl (Fluoxetine HCl) 20 Mg Tablet 1 TAB PO DAILY for 30 Days, #30 TAB 0 Refills Fluoxetine HCl (Fluoxetine HCl) 10 Mg Tablet 1 TAB PO DAILY for 30 Days, #30 TAB 0 Refills Folic Acid (Folic Acid) 0.8 Mg Capsule 1 MG PO DAILY, CAP Hydroxyzine HCl (Hydroxyzine HCl) 50 Mg Tablet 50 MG PO [id number] PRN for ANXIETY/AGITATION, TAB Memantine HCl (Namenda) 5 Mg (28)-10 Mg (21) Tab.ds.pk 1 TAB PO BID for 28 Days, #49 TAB 0 Refills Mirtazapine (Mirtazapine) 7.5 Mg Tablet 1 TAB PO HS for 30 Days, #30 TAB 0 Refills Time spent arranging discharge: 1-30 minutes ATTESTATION BY PHYSICIAN I have seen and examined the patient. I reviewed the documentation, medical decision making, and treatment plan as noted by the resident physician above. I agree with the findings and plan of care. DIOMEDES VELA MD, AKSHAY MD Oct 11, 2025 19:21
[2025-10-11 20:00] VITALS: BP 130/62; PULSE 71; RESP 16; TEMP 98.8; O2SAT 95
--- NOTE | 2025-10-11 20:40 | NUR ---
Patient picked up by EMS at 2037. Patients at bedside upon discharge. Patient left with a PIV in place for IV antibiotics. All belongings given to the patients prior to discharge. All questions answered prior to discharge.
--- NOTE | 2025-10-12 10:08 | HMCIMG ---
HISTORY: Pain.Distended gallbladder GALLBLADDER ULTRASOUND: Static ultrasound images of the gallbladder are submitted. Gallbladder is distended and is visualized for cholecystotomy tube placement. IMPRESSION: See the details of the finding in the procedure note
== END 2025-10-11 20:38 | DRG 444 ==
LOC: EDH 01:07 → EDHIP 05:12 → 4AH 05:46
PROVIDERS: ADMIT Internal Medicine; ATTEND Internal Medicine
PROC: 0DH63UZ Insertion of Feeding Device into Stomach, Percutaneous Approach (ICD-10-PCS; 2025-10-07)
PROC: 0F9430Z Drainage of Gallbladder with Drainage Device, Percutaneous Approach (ICD-10-PCS; principal; 2025-10-09)
DX: K80.00 Calculus of gallbladder with acute cholecystitis without obstruction (principal); E43 Unspecified severe protein-calorie malnutrition; R64 Cachexia; F05 Delirium due to known physiological condition; L89.152 Pressure ulcer of sacral region, stage 2; R13.12 Dysphagia, oropharyngeal phase; E83.39 Other disorders of phosphorus metabolism; N30.00 Acute cystitis without hematuria; B96.4 Proteus (mirabilis) (morganii) as the cause of diseases classified elsewhere; E11.649 Type 2 diabetes mellitus with hypoglycemia without coma; F03.90 Unspecified dementia, unspecified severity, without behavioral disturbance, psychotic disturbance, mood disturbance, and anxiety; I10 Essential (primary) hypertension; Z68.1 Body mass index [BMI] 19.9 or less, adult; K29.70 Gastritis, unspecified, without bleeding; K44.9 Diaphragmatic hernia without obstruction or gangrene; R62.7 Adult failure to thrive; I25.10 Atherosclerotic heart disease of native coronary artery without angina pectoris; E78.5 Hyperlipidemia, unspecified; E87.6 Hypokalemia; K82.8 Other specified diseases of gallbladder; Z74.01 Bed confinement status; Z82.49 Family history of ischemic heart disease and other diseases of the circulatory system; Z93.1 Gastrostomy status
CPT/HCPCS: 10030; 36415; 43246; 47490; 71045; 74176; 76705; 78226; 80048; 80053; 81001; 82550; 82948; 83036; 83735; 84100; 84439; 84443; 84481; 84484; 85025; 85027; 85610; 85730; 87071; 87086; 87186; 87205; 92610; 93005; 96372; 96374; 99156; 99285; A4606; A9537; C1769; C1894; G0378; J0690; J0696; J1630; J1644; J2060; J2250; J2470; J2704; J3010; J3411; J3480; J3490; J7030; Q9967; A4215; A4221; A4222; A4223; A4620; A4657; A4663; A7002; C1729